=== PATIENT | male | born 1960 | race Caucasian/White ===

== ENCOUNTER 2023-10-03 21:01 | Emergency (ER) | payer OTHER, SELFPAY ==
[2023-10-03 21:05] VITALS: BP 135/70
[2023-10-03 21:06] VITALS: BP 135/70; BMI 18.5
--- NOTE | 2023-10-03 21:31 | ED.GENMED ---
History of Present Illness
<Jackie Forbes PA-C - Last Filed: 10/04/23 01:22>
General
Chief Complaint: Breathing Problem
Source: patient
Exam Limitations: none
Time Seen by Provider: 10/03/23 21:03
Nursing documentation reviewed up to this point in time: agreed with
Travel History
Have you had any contact with someone who has COVID-19?: No
Do you have any symptoms of coronavirus? Fever > 100 degrees, chills, cough, shortness of breath, sore throat, loss of taste or smell, muscle aches, or headache?: Yes
Symptoms:: SOB
History of Present Illness
History of Present Illness:
Patient is a 63 y.o male with hx COPD presenting via EMS for shortness of breath at home. He he has been having cough, shortness of breath for the past few days. No fevers. He has productive cough with white-colored sputum. No hemoptysis. He was
seen by his primary care on Saturday who prescribed him a course of doxycycline and low-dose prednisone. He states he is getting worse. Today he felt exceptionally short of breath and called EMS for evaluation in the emergency department. He was
given bronchodilators and routes in emergency department and is feeling slightly better.
He is a current smoker.
Past History
<Jackie Forbes PA-C - Last Filed: 10/04/23 01:22>
Past History
ED Past Medical History: COPD (emphysema), GERD and Other (alcohol abuse)
ED Past Surgical History: None
Social History
Tobacco: Smoker
Alcohol: Chronic alcoholic
Drug: None
Personal: Single
Living: alone
Family History
Family History: CAD ([place])
Phy Exam
<Jackie Forbes PA-C - Last Filed: 10/04/23 01:22>
Physical Exam
Physical Exam:
General: Well appearing and non-toxic
HEENT: Atraumatic, normocephalic; pupils equal round and reactive to light bilaterally, extraocular muscles intact bilaterally; protecting airway
Neck: appears supple, no JVD
CV: Mildly tachycardic, heart sounds normal, no evidence of cyanosis
Resp: Poor air movement, some expiratory wheezing, in no apparent respiratory distress�pulse ox 96 on my assessment
Abd: Soft, nontender non-distended
Extremities: No deformities no evidence of cyanosis or edema
Neuro: alert, speech normal, no focal motor deficits
Psych: Normal affect
Skin: Intact, no rashes
Scores
<Jackie Forbes PA-C - Last Filed: 10/04/23 01:22>
Heart Failure Risk
Heart Failure Risk Score: Not Applicable
Course
<Jackie Forbes PA-C - Last Filed: 10/04/23 01:22>
Orders/Labs/Results
Orders:
Orders
10/03/23 21:43
Ipratropium/Albuterol Sulfate [Duoneb] 3 ml INH R NOW ONE
CR Chest - 2 Views Urgent
Comment:
Reason For Exam: shortness of breath, cough
10/03/23 21:45
Ipratropium/Albuterol Sulfate [Duoneb] 3 ml INH R NOW ONE
10/03/23 21:53
Electrocardiogram (*1) Stat
Reason for Study: Other
Other Reason for Exam: chest pain
EKG- Treatment ONCE
10/03/23 21:59
Complete Blood Count/With Diff Urgent
Comprehensive Metabolic Panel Urgent
10/03/23 22:49
Prednisone [Deltasone] 40 mg PO NOW STA
10/03/23 23:59
Ipratropium/Albuterol Sulfate [Duoneb] 3 ml INH R NOW ONE
Abnormal Lab Results
10/03/23
21:59
RBC 3.84 L 10^6/uL
(4.70-6.10)
Hgb 12.7 L g/dL
(13.0-18.0)
Hct 35.1 L %
(39.0-52.0)
MCH 33.1 H pg
(27.0-31.0)
Absolute Lymphs (auto) 1.0 L 10^3/uL
(1.2-3.4)
Absolute Monos (auto) 0.9 H 10^3/uL
(0.1-0.6)
Lymphocytes % 13.6 L %
(20.5-51.1)
Monocytes % 12.3 H %
(1.7-9.3)
Sodium 131 L mmol/L
(135-145)
Potassium 3.4 L mmol/L
(3.5-5.1)
Chloride 96 L mmol/L
(98-107)
Glucose 102 H mg/dl
(70-99)
Total Protein 6.1 L g/dl
(6.3-8.2)
10/03/23 21:59
10/03/23 21:59
Vital Signs
Initial and Last Documented VS:
Initial Vital Signs
Pulse Resp BP
111 25 135/70
10/03/23 21:05 10/03/23 21:05 10/03/23 21:05
Last Documented Vital Signs
Temp Pulse Resp BP Pulse Ox
98.5 F 114 25 123/62 95
10/03/23 21:06 10/04/23 00:12 10/04/23 00:12 10/04/23 00:12 10/04/23 00:40
<Husam Stephens, DO - Last Filed: 10/03/23 22:32>
Orders/Labs/Results
Orders:
Orders
10/03/23 21:43
Ipratropium/Albuterol Sulfate [Duoneb] 3 ml INH R NOW ONE
CR Chest - 2 Views Urgent
Comment:
Reason For Exam: shortness of breath, cough
10/03/23 21:45
Ipratropium/Albuterol Sulfate [Duoneb] 3 ml INH R NOW ONE
10/03/23 21:53
Electrocardiogram (*1) Stat
Reason for Study: Other
Other Reason for Exam: chest pain
EKG- Treatment ONCE
10/03/23 21:59
Complete Blood Count/With Diff Urgent
Comprehensive Metabolic Panel Urgent
10/03/23 22:49
Prednisone [Deltasone] 40 mg PO NOW STA
10/03/23 23:59
Ipratropium/Albuterol Sulfate [Duoneb] 3 ml INH R NOW ONE
Abnormal Lab Results
10/03/23
21:59
RBC 3.84 L 10^6/uL
(4.70-6.10)
Hgb 12.7 L g/dL
(13.0-18.0)
Hct 35.1 L %
(39.0-52.0)
MCH 33.1 H pg
(27.0-31.0)
Absolute Lymphs (auto) 1.0 L 10^3/uL
(1.2-3.4)
Absolute Monos (auto) 0.9 H 10^3/uL
(0.1-0.6)
Lymphocytes % 13.6 L %
(20.5-51.1)
Monocytes % 12.3 H %
(1.7-9.3)
Sodium 131 L mmol/L
(135-145)
Potassium 3.4 L mmol/L
(3.5-5.1)
Chloride 96 L mmol/L
(98-107)
Glucose 102 H mg/dl
(70-99)
Total Protein 6.1 L g/dl
(6.3-8.2)
10/03/23 21:59
10/03/23 21:59
Vital Signs
Initial and Last Documented VS:
Initial Vital Signs
Pulse Resp BP
111 25 135/70
10/03/23 21:05 10/03/23 21:05 10/03/23 21:05
Last Documented Vital Signs
Temp Pulse Resp BP Pulse Ox
98.5 F 114 25 123/62 95
10/03/23 21:06 10/04/23 00:12 10/04/23 00:12 10/04/23 00:12 10/04/23 00:40
<Jackie Forbes PA-C - Last Filed: 10/04/23 01:22>
MDM/Problems Addressed
MDM/Problems Addressed:
Patient is 63-year-old male with history of COPD presenting for evaluation of shortness of breath. Worsening over the past few days. He has cough but no hemoptysis or sputum production. He is afebrile. Received bronchodilators and route to ""hospital. He is in no apparent respiratory distress on initial exam. O2 saturation 98 on room air. He is mildly tachycardic likely due to bronchodilators. Lung exam with poor air movement some expiratory wheezing. Will get basic labs, EKG,
chest x-ray. Will give 2 DuoNeb's [id number]. Will reassess
CBC without any clinically significant abnormalities. CMP very mild hyponatremia of 131. Otherwise no clinically significant rise. Will give IV fluids. Chest x-ray shows no signs of pneumonia. EKG shows sinus tachycardia with no signs of
ischemia.
Patient with some improvement after multiple DuoNebs. He has remained stable in the emergency department with O2 saturations in upper 90s on room air. Suspect symptoms likely due to COPD exacerbation. No indication for admission at this point.
He is stable for discharge with return precautions and primary care follow-up. Will send him home with nebulizer machine. Will send prescription for prednisone taper course and albuterol nebulizer solution to pharmacy to use as needed. Will give
first dose of steroid in the emergency department today. He should continue doxycycline as prescribed by primary care. Patient is comfortable with this plan and will follow with primary care with regular scheduled appointment this Saturday.
Acute Exacerbation and/or Progression of Chronic Illness:
COPD exacerbation
<Husam Stephens DO - Last Filed: 10/03/23 22:32>
MDM/Problems Addressed
Differential Diagnosis Includes:
COPD exacerbation, pneumothorax, electrolyte disturbance, pneumonia
MDM/Problems Addressed:
COPD exacerbation
Chronic conditions affecting care:
COPD, chronic tobacco abuse
<Jackie Forbes PA-C - Last Filed: 10/04/23 01:22>
*Radiology
Radiology exam reviewed: preliminary read by ED provider and radiology read reviewed
*EKG
Interpreted by ED Provider?: Yes
EKG Intrepretation Date: 10/04/23
Interpretation: abnormal
Comparison EKG: no changes
Heart Rate: 107
Rate: tachycardiac
Rhythm: sinus
[place]: normal axis
Interval: normal interval
QRS Pattern: normal QRS
Ischemia: no ischemia
*Sports Doctor Interpretation
Rate: normal
Interpretation: normal
Heart Rate: 82
Rhythm: sinus
*Critical Care Note
Total Time (30-74mins, 75-104mins- exclusive of procedures): Not Applicable
<Husam Stephens DO - Last Filed: 10/03/23 22:32>
*Pulse Oximetry
Patient hypoxic: yes
<Husam Stephens DO - Last Filed: 10/03/23 22:32>
Update Note
Update Note:
Patient was counseled on the importance of smoking cessation.
ED Attending Note
<Jackie Forbes PA-C - Last Filed: 10/04/23 01:22>
-
Portions of this chart may have been created with voice recognition software.� Occasional wrong word or��sound alike� substitutions may have occurred due to the inherent limitations of voice recognition software.
<Husam Stephens DO - Last Filed: 10/03/23 22:32>
ED Attending Note
Patient seen and examined by attending physician: Yes
I performed the substantive portion of visit, reviewed & personally made and approve the management plan that is documented in note by myself or GREG.: Yes
ED Attending Note:
63-year-old male who presents feeling short of breath. Recent saw his primary care doctor was put on steroids and doxycycline. Patient reports that he felt short of breath. Was given bronchodilators by EMS. Patient states he does feel little bit
better. No fevers. No hemoptysis. No sputum production. Exam: Poor air movement but does have some wheezing. Pulse ox 93% on my evaluation. No respiratory distress. Assessment plan: Check chest x-ray, lab, DuoNebs and reassess
Discharge Plan
Departure
Patient Disposition: Home (Routine Discharge)
Date of Disposition: 10/04/23
Time of Disposition: 00:14
Patient with high blood pressure during this ER visit?: Yes
Condition: Good
Covid-19: Not Applicable
Discharge Problem:
COPD exacerbation
Instructions: Shortness of Breath (Dyspnea) (DC), Exacerbation of COPD (DC), BLOOD PRESSURE
Prescriptions:
New
prednisone 10 mg Tablet
See Rx Instructions .ROUTE .COMPLEX Qty: 30 0RF
Rx Instructions:
Take By Mouth:
40 mg daily x3 days, 30 mg daily x3 days,
20 mg daily x3 days, 10 mg daily x3 days.
albuterol sulfate 2.5 mg /3 mL (0.083 %) solution for nebulization
2.5 mg inhalation Q4H PRN (Reason: shortness of breath or wheezing) Qty: 90 0RF
No Action
Spiriva Respimat 1.25 mcg/actuation Mist
2 puff INHALATION DAILY
naproxen 500 mg Tablet
500 mg PO PRN PRN (Reason: as needed)
prednisone 10 mg Tablet
10 mg PO DIRECTED
Rx Instructions:
3 tabs PO DAILY FOR 3 DAYS, THEN 2 tabs PO daily for 3 days, then 1 tab PO daily for 3 days.
doxycycline hyclate 100 mg Capsule
100 mg PO BID
Patient Comments:
Take 1 capsule by mouth BID for 10 days
sertraline 100 mg Tablet
100 mg PO DAILY
pantoprazole 40 mg Tablet,Delayed Release (Dr/Ec)
40 mg PO BID
albuterol 90 mcg/actuation Aerosol
INHALATION
Referrals:
Elizabeth Deras CRNP [Family Provider] - Follow up in 5-7 days
Activity Restrictions/Additional Instructions:
-Return to the emergency department with any severe shortness of breath, chest pain, high fevers, coughing up blood, severe headache, changes in mental status, worsening in current symptoms, or any other concerns
-We have sent you home with a nebulizer machine. A prescription for the albuterol nebulizer solution has been sent to your pharmacy. Please use every 4 hours as needed for shortness of breath, wheezing
-A prescription for prednisone has been sent to your pharmacy. Please start taking tomorrow. You can discontinue the prescription for prednisone given to you by your primary care provider
-Continue to take doxycycline as prescribed by you primary care
-Follow-up with primary care for further evaluation/treatment.
Interventions
Interventions:
*Risk Screen - Suicide Last Done: 10/03/23 21:06
*General Assessment Last Done: 10/03/23 21:06
*Neglect/Abuse Screening Last Done: 10/03/23 21:06
ED- Fall Risk Assessment Last Done: 10/04/23 00:40
*ED COVID-19 Vaccine History Last Done: 10/04/23 00:34
*Nursing Disposition Last Done: 10/04/23 00:40
ED- Cardiac Assessment Last Done: 10/03/23 23:13
ED- Pulmonary Assessment Last Done: 10/03/23 23:13
Discharge Date and Time
Discharge Date/Time: 10/04/23 00:46
[2023-10-03 22:00] VITALS: BP 123/58
[2023-10-03 22:10] LABS: % Basophils 0.6 % (0-2); % Eosinophils 1.3 % (0-6); % Immature Granulocytes 0.4 % (0-0.5); % Lymphocytes 13.6 % (20.5-51.1); % Monocytes 12.3 % (1.7-9.3); % Neutrophils 71.8 % (42.2-75.2); Absolute Eosinophils 0.1 10^3/uL (0-0.7); Absolute Monocytes 0.9 10^3/uL (0.1-0.6); Hematocrit 35.1 % (39.0-52.0); Hemoglobin 12.7 g/dL (13.0-18.0); Mean Corp Hgb Conc. 36.2 g/dL (33.0-37.0); Mean Corpuscular Hgb 33.1 pg (27.0-31.0); Mean Corpuscular Volume 91.4 fL (80.0-94.0); Nucleated Red Blood Cells % 0 % (-); Platelet Count 224 10^3/uL (130-400); Red Blood Cell Count 3.84 10^6/uL (4.70-6.10); Red Cell Dist. Width 12.5 % (11.5-14.5)
[2023-10-03 22:19] LABS: ALT (SGPT) 20 U/L (0-50); AST (SGOT) 26 U/L (17-59); Albumin 3.8 g/dl (3.5-5.0); Alkaline Phosphatase 62 U/L (38-126); Blood Urea Nitrogen 9 mg/dl (9-20); Calcium 8.7 mg/dl (8.4-10.2); Carbon Dioxide 26 mmol/L (22-30); Chloride 96 mmol/L (98-107); Estimated Creatinine Clearance 94 ml/min; Glucose 102 mg/dl (70-99); Potassium 3.4 mmol/L (3.5-5.1); Sodium 131 mmol/L (135-145); Total Bilirubin 0.6 mg/dl (0.2-1.3); Total Protein 6.1 g/dl (6.3-8.2); eGFR > 60.00
[2023-10-03] MEDS: DUONEB 3 ML INH ×2 (22:33→22:45)
[2023-10-03] MEDS: DELTASONE 40 MG PO (23:10)
[2023-10-04 00:12] VITALS: BP 123/62
[2023-10-04] MEDS: DUONEB 3 ML INH (00:35)
== END 2023-10-04 00:46 | disposition home or self-care (01) ==
LOC: EMR 21:01
PROVIDERS: Physician Assistant; EMERGENCY PHYSICIAN Emergency Medicine; FAMILY PHYSICIAN Nurse Practitioner
DX: J44.1 Chronic obstructive pulmonary disease with (acute) exacerbation (principal); F17.200 Nicotine dependence, unspecified, uncomplicated; R03.0 Elevated blood-pressure reading, without diagnosis of hypertension
CPT/HCPCS: 99285; 94640; 71046; 80053; 85025; 93005

== ENCOUNTER 2023-10-07 15:00 | Inpatient (IN) | payer OTHER, SELFPAY ==
[2023-10-07] VITALS (45 sets, daily range): BP systolic 46–192; BP diastolic 38–104
[2023-10-07 13:14] LABS: % Basophils 0.1 % (0-2); % Immature Granulocytes 0.3 % (0-0.5); % Lymphocytes 15.6 % (20.5-51.1); % Monocytes 6.8 % (1.7-9.3); % Neutrophils 77.2 % (42.2-75.2); Absolute Lymphocytes 1.1 10^3/uL (1.2-3.4); Absolute Monocytes 0.5 10^3/uL (0.1-0.6); Absolute Neutrophils 5.5 10^3/uL (1.4-6.5); Hematocrit 38.9 % (39.0-52.0); Hemoglobin 13.9 g/dL (13.0-18.0); Mean Corp Hgb Conc. 35.7 g/dL (33.0-37.0); Mean Corpuscular Volume 89.4 fL (80.0-94.0); Mean Platelet Volume 8.8 fL (7.4-10.4); Nucleated Red Blood Cells % 0 % (-); Platelet Count 288 10^3/uL (130-400); Red Blood Cell Count 4.35 10^6/uL (4.70-6.10); Red Cell Dist. Width 11.8 % (11.5-14.5); White Blood Cell Count 7.1 10^3/uL (4.8-10.8)
--- NOTE | 2023-10-07 13:14 | ED.GENMED ---
History of Present Illness
General
Chief Complaint: Breathing Problem
Source: ambulance crew
Time Seen by Provider: 10/07/23 13:07
Travel History
Have you had any contact with someone who has COVID-19?: No
Do you have any symptoms of coronavirus? Fever > 100 degrees, chills, cough, shortness of breath, sore throat, loss of taste or smell, muscle aches, or headache?: No
History of Present Illness
History of Present Illness:
63-year-old male brought to the emergency room by ambulance in respiratory distress. They evidently received a phone call for a patient having shortness of breath. They arrived to find the patient in significant respiratory distress with
expiratory wheezing. En route his mentation changed to where he became essentially unresponsive. He continued to have significant increased work of breathing. 2 DuoNebs were provided en route. Patient unable to provide any history.
Past History
Past History
ED Past Medical History: COPD (emphysema), GERD and Other (alcohol abuse)
ED Past Surgical History: None
Social History
Tobacco: Smoker
Alcohol: Chronic alcoholic
Drug: None
Personal: Single
Living: alone
Family History
Family History: CAD ([place])
Phy Exam
Physical Exam
Physical Exam:
General: Eyes open, does not respond to commands, in extremis
Vitals: Tachypneic, hypertensive
Head: Atraumatic
Eyes: Pupils equal, EOMI
Throat: Airway intact, no exudates
Neck: Trachea midline
Lungs: Markedly decreased breath sounds bilaterally with expiratory wheezing
Heart: Regular rate, no murmurs
Abd: Soft, Nontender, No pulsatile mass
Neuro: Grossly nonfocal
Skin: Warm, dry, no rash
Extremities: pulses equal b/l, no edema
Scores
Heart Failure Risk
Heart Failure Risk Score: Not Applicable
Course
Orders/Labs/Results
Orders:
Orders
10/07/23 12:57
Etomidate [Amidate] 40 mg .ROUTE .STK-MED ONE
Succinylcholine Chloride [Anectine] 200 mg .ROUTE .STK-MED ONE
10/07/23 12:58
Electrocardiogram (*1) Urgent
Reason for Study: Other
Other Reason for Exam: Respiratory Distress
Cardiac Monitoring- Treatment ONCE
EKG- Treatment ONCE
IV Insert/Care/Rem.- Treatment PRN
O2 Therapy [RESP] Urgent
Titrate/Wean O2 to maintain O2 sat greater than (%): 93
Special Instructions: TO MAINTAIN CONTINUOUS O2 SATS >/= 93%
Pulse Ox/cont/shift [RESP] Urgent
Quantity: 1
Special Instructions: continuous pulse ox
10/07/23 12:59
CR Chest Portable - 1 View Urgent
Comment:
Reason For Exam: respiratory distress
Reason Study Needs to be Portable: Patient Unstable
10/07/23 13:03
Complete Blood Count/With Diff Urgent
Comprehensive Metabolic Panel Urgent
NT-proBNP Urgent
Troponin I Urgent
10/07/23 13:04
Lactic Acid Urgent
Blood Culture Urgent
DONOVAN Source: Blood/Venous
Specimen Description:
FentaNYL 1,000 MCG/100 ML [Sublimaze] 1,000 mcg in 100 ml .ROUTE .STK-MED
Fentanyl Citrate/Pf [Sublimaze] 100 mcg .ROUTE .STK-MED ONE
Propofol [Diprivan] 20 ml .ROUTE .STK-MED
10/07/23 13:06
Albuterol Nebs [Ventolin Nebules] 2.5 mg .ROUTE .STK-MED ONE
10/07/23 13:12
FentaNYL 1,000 MCG/100 ML [Sublimaze] 1,000 mcg in 100 ml IV NOW
Indication:: Light Sedation
Begin Infusion:: Now
Goal:: pain score </= 1, CPOT 0-2
Maximum dose in mcg/hr:: 300
Continue currently infusing dose and titrate:: Yes
Titration Instructions:: Titrate every 30 minutes if patient exhibits signs of pain or discomfort
Titration Instructions:: (pain score >/= 2, CPOT >/= 3).
Titration Instructions:: Administer bolus dose and increase infusion by 25 mcg/hr.
Taper Instructions:: If pain score at goal for 4 consecutive hours (pain score </= 1, CPOT 0-2)
Taper Instructions:: decrease infusion by 50 mcg/hr every 2 hours.
Taper Instructions:: When dose </= 50 mcg/hr may turn infusion off and consider PRN
Taper Instructions:: intermittent bolus doses only.
Over-sedation Instructions:: If CPOT 0-2 (goal) and RASS -3 to -5 (below goal) decrease sedative by 50%
Over-sedation Instructions:: first. If pain score remains at goal and RASS remains below goal in 1 hour,
Over-sedation Instructions:: decrease opioid infusion by 50%.
Notify provider:: immediately if pt exhibits: chest wall rigidity, hemodynamic instability,
Notify provider:: agitation/pain despite maximum dosing, pain when RASS below goal.
Additional Instructions:: Patient MUST be mechanically ventilated.
Fentanyl Citrate/Pf [Sublimaze] 50 mcg IV [id number] PRN
Fentanyl Citrate/Pf [Sublimaze] 70 mcg IV NOW STA
10/07/23 13:16
0.9% Sodium Chloride 1000 ml [Nss] 1,000 ml IV BOLUS
10/07/23 13:22
ASA Classification Routine
Triglycerides Routine
Comment: baseline levels with propofol infusion
Propofol 1,000,000 Mcg/100 ml [Diprivan] 1,000,000 mcg in 100 ml IV NOW
Indication:: Light Sedation
Begin Infusion:: Now
Goal:: RASS 0 to -2
Maximum dose in mcg/kg/min:: 50
Initial dose based on RASS:: Yes
If RASS is:: +1 or pt hemodynamically unstable (SBP < 90mmHg), initiate at 10 mcg/kg/min
If RASS is:: +2, initiate at 20 mcg/kg/min
If RASS is:: greater than or equal to +3, initiate at 30 mcg/kg/min
Titration Instructions:: Titrate by 5-10 mcg/kg/min every 5 minutes until RASS 0 to -2 achieved.
Taper Instructions:: If RASS is at or below goal for 4 consecutive hours decrease infusion by
Taper Instructions:: 5-10 mcg/kg/min every 2 hours to off.
Over-sedation Instructions:: If CPOT 0-2 (at goal) AND RASS -3 to -5 (below goal) decrease sedative by
Over-sedation Instructions:: 50% first. If pain score remains at goal and RASS remains below goal in
Over-sedation Instructions:: 1 hour, decrease opioid infusion by 50%.
Notify provider:: immediately if patient exhibits signs/symptoms of propofol-related
Notify provider:: infusion syndrome.
Additional Instructions:: Patient MUST be mechanically ventilated.
Propofol [Diprivan] 60 mg IV NOW STA
10/07/23 14:36
ABG [Arterial Blood Gas] Urgent
%Oxygen/Room Air: 50
10/07/23 14:41
Admit/Transfer Patient As Directed
Co-Sign Provider:
Level of Care: Inpatient admission
Assign to:: ICU
Physician / Group: Aashish Meekists
Diagnosis: acute COPD exacerbation, VDRF
Reason for Hospitalization: acute COPD exacerbation, VDRF
Expected length of stay greater than two midnights?: Yes
ELOS- Estimated Length of Stay in days: 4
I certify the patient meets the requirements for IP care: Yes
10/07/23 14:52
Code Status As Directed
Resuscitation Status: Full Code
Abnormal Lab Results
10/07/23 10/07/23
13:03 14:36
RBC 4.35 L 10^6/uL
(4.70-6.10)
Hct 38.9 L %
(39.0-52.0)
MCH 32.0 H pg
(27.0-31.0)
Absolute Lymphs (auto) 1.1 L 10^3/uL
(1.2-3.4)
Neutrophils % 77.2 H %
(42.2-75.2)
Lymphocytes % 15.6 L %
(20.5-51.1)
pH 7.33 L
(7.35-7.45)
pCO2 55 H mmHg
(35-48)
pO2 233 H mmHg
(83-108)
HCO3 29.0 H mmol/L
(21-28)
ABG O2 Sat (Measured) 99.1 H %
(94-98)
Sodium 128 L mmol/L
(135-145)
Chloride 84 L mmol/L
(98-107)
Carbon Dioxide 35 H mmol/L
(22-30)
Creatinine 0.5 L mg/dL
(0.7-1.3)
Glucose 152 H mg/dl
(70-99)
AST 67 H U/L
(17-59)
10/07/23 13:03
10/07/23 13:03
Vital Signs
Initial and Last Documented VS:
Initial Vital Signs
Pulse Resp Pulse Ox
77 36 95
10/07/23 12:59 10/07/23 12:59 10/07/23 12:59
Last Documented Vital Signs
Temp Pulse Resp BP Pulse Ox
96.8 F L 90 20 98/62 96
10/07/23 13:30 10/07/23 15:15 10/07/23 15:15 10/07/23 14:00 10/07/23 15:15
Procedures
Intubations
Procedure completed by: myself
Method of Intubation: glidescope
Tube size (cm): 8.0
Placement confirmed by: auscutation, CXR, capnography and direct visualization
Breath sounds after intubation: equal
Intubation complications: no complications
MDM/Problems Addressed
Differential Diagnosis Includes:
COPD exacerbation pneumonia, pneumothorax, PE
MDM/Problems Addressed:
Patient presented extremis. He was unresponsive to verbal or painful stimuli but he did not maintain spontaneous respiratory effort. Suspect he had significant hypercarbia. Decision made to go directly to intubation. RSI was performed. We were
able to ventilate the patient. Inline nebs were provided after intubation. Patient required sedation with fentanyl and propofol. He will be admitted to the intensive care unit. Case discussed with the hospitalist (Dr. Rudolph) as well as the
circulation tender (Dr. Main)
Acute Exacerbation and/or Progression of Chronic Illness: COPD
*Pulse Oximetry
Patient hypoxic: yes
*EKG
Interpreted by ED Provider?: Yes
Interpretation: normal
Heart Rate: 63
Rate: normal
Rhythm: sinus
Interval: normal interval
QRS Pattern: normal QRS
Ischemia: no ischemia
*Toll Ticket Clerk Interpretation
Rate: normal
Rhythm: sinus
*Critical Care Note
Total Time (30-74mins, 75-104mins- exclusive of procedures): 35 min
comment:
Critical care statement: A total of 35 minutes of critical care time was provided for this patient. This includes management of unstable vital signs, evaluation of the patient at bedside, reviewing the patient's pertinent medical records, discussion
with consultants, review of old EKGs and review of pertinent medical records. This time with separate from time utilized to perform the aforementioned documented procedures
ED Attending Note
-
Portions of this chart may have been created with voice recognition software.� Occasional wrong word or��sound alike� substitutions may have occurred due to the inherent limitations of voice recognition software.
Discharge Plan
Departure
Patient Disposition: Admit
Date of Disposition: 10/07/23
Time of Disposition: 13:50
Admit to: ICU
Presentation/result/management discussed w/ accepting MD/DO: Hospitalist
Condition: Serious
Discharge Problem:
Respiratory failure with hypoxia and hypercapnia, COPD exacerbation
Interventions
Interventions:
*Risk Screen - Suicide Last Done: 10/07/23 13:29
*Neglect/Abuse Screening Last Done: 10/07/23 13:29
ED- Cardiac Assessment Last Done: 10/07/23 14:48
ED- Pulmonary Assessment Last Done: 10/07/23 14:48
[2023-10-07] MEDS: SUBLIMAZE 100 IV (13:16)
[2023-10-07] MEDS: SUBLIMAZE 70 MCG IV (13:16)
[2023-10-07] MEDS: DIPRIVAN 60 MG IV (13:24)
[2023-10-07] MEDS: DIPRIVAN 100 IV ×2 (13:25→22:57)
--- NOTE | 2023-10-07 13:25 | EDRN ---
Pt arrived severely dypsneic and disoriented. Dr. Shepherd at bedside arrival and intubated with rt present.
[2023-10-07] MEDS: NSS 1000 IV ×4 (13:26→19:50)
[2023-10-07 13:32] LABS: Lactic Acid 1.2 mmol/L (0.7-2.0)
--- NOTE | 2023-10-07 13:36 | EDRN ---
Pt started on Fentanyl 60mcg and Propofol 20mcg per Dr. Shepherd verbal order.
[2023-10-07] MEDS: SUBLIMAZE 50 MCG IV ×5 (13:43→22:57)
[2023-10-07 13:45] LABS: ALT (SGPT) 31 U/L (0-50); AST (SGOT) 67 U/L (17-59); Alkaline Phosphatase 71 U/L (38-126); Blood Urea Nitrogen 15 mg/dl (9-20); Calcium 8.8 mg/dl (8.4-10.2); Carbon Dioxide 35 mmol/L (22-30); Chloride 84 mmol/L (98-107); Glucose 152 mg/dl (70-99); Potassium 4.7 mmol/L (3.5-5.1); Sodium 128 mmol/L (135-145); Total Bilirubin 0.7 mg/dl (0.2-1.3); Total Protein 6.7 g/dl (6.3-8.2); eGFR > 60.00
[2023-10-07 13:50] LABS: NT-proBNP 307 pg/ml; Troponin I < 0.012 ng/ml
--- NOTE | 2023-10-07 13:57 | CON.INTV ---
Consultation
Consultation Request
Date/Time Consultation Requested: 10-07-23
Date/Time Consultation Performed: 10-07-23
Requesting Provider: Hospitalist
Performing Provider: Dr Rios
Reason for Consultation: dyspnea
Medical History
-
Chief Complaint: dyspnea
History of Present Illness:
Mr Niall Campos is a 63/M adm 10-07 with worsening dyspnea, patient called EMS, found in significant resp distress and expiratory wheezing.
In route to [facility], became unresponsive, received 2 DN treatments.
At ER, unresponsive, tachypneic/wheezing, hypertensive, intubated with no issue at ER (PINKY#8).
Per emr, seen at ER as well on 10-03 for few d h/o dyspnea and cough (previously seen by PCP and prescribed doxycycline and low dose prednisone without improvement, brought by EMS, responded to multiple DNs, d/c home with prednisone taper and alb
nebs (prescribed nebulizer as well)
Seen at ER, on MV, sedated, intermittent cough, bronchospastic on exam
COPD, per emr on tiotropium, no other details available
Smoker
ETOH use
Past Medical History
Past Medical History: Other (see A&P for PMH/PSH)
Social History
Tobacco: Smoker
Alcohol: Daily
Personal: Single
Living: Alone
Family History
Family History: CAD
Allergies / Home Medications
Allergies
Allergy/AdvReac Type Severity Reaction Status Date / Time
No Known Allergies Allergy Verified 06/25/23 22:03
Home Medications
Medication Instructions Recorded Confirmed Last Taken Type
naproxen 500 mg tablet 500 mg PO PRN PRN as needed 02/02/23 05/18/23 Unknown History
tiotropium bromide 1.25 2 puff inhalation DAILY 02/02/23 10/03/23 Unknown History
mcg/actuation mist for inhalation
(Spiriva Respimat)
albuterol 90 mcg/actuation aerosol mcg inhalation 10/03/23 Unknown History
inhaler
doxycycline hyclate 100 mg capsule 100 mg PO BID 10/03/23 10/03/23 Unknown History
pantoprazole 40 mg tablet,delayed 40 mg PO BID 10/03/23 10/03/23 Unknown History
release
prednisone 10 mg tablet 10 mg PO DIRECTED 10/03/23 10/03/23 10/02/23 History
sertraline 100 mg tablet 100 mg PO DAILY 10/03/23 10/03/23 Unknown History
albuterol sulfate 2.5 mg/3 mL 2.5 mg (3 mL) inhalation Q4H PRN 10/04/23 Unknown Rx
(0.083 %) solution for nebulization shortness of breath or wheezing
#90 mL
prednisone 10 mg tablet See Rx Instructions .Route 10/04/23 Unknown Rx
.COMPLEX #30 tabs
Review of Systems
-
Unable to Obtain full review of systems at this time due to: Patient Intubation
Vitals / Labs / Diagnostic Testing
Vital Signs
Temp Pulse Resp BP Pulse Ox
96.8 F L 89 18 115/63 99
10/07/23 13:30 10/07/23 13:45 10/07/23 13:34 10/07/23 13:45 10/07/23 13:34
Lab Data
10/07/23 13:03
10/07/23 13:03
Diagnostic Testing:
Physical Exam
-
HEENT: Normocephalic and Moist Mucous Membranes
Cardiovascular: Regular Rhythm, Murmur (n), Peripheral Edema (n) and JVD (n)
Respiratory: Wheeze, Rhonchi and Other (prolonged expiratory time)
GI: Soft and Non Distended
Neurology: Other (sedated)
Skin: Dry
General: Respiratory Distress (mild)
Assessment
-
Assessment:
Mr Niall Campos is a 63/M adm 10-07 with worsening dyspnea, patient called EMS, found in significant resp distress and expiratory wheezing. In route to , became unresponsive, received 2 DN treatments. At ER, unresponsive, tachypneic/wheezing,
hypertensive, intubated with no issue at ER (PINKY#8). Per emr, seen at ER as well on 10-03 for few d h/o dyspnea and cough (previously seen by PCP and prescribed doxycycline and low dose prednisone without improvement, brought by EMS, responded to
multiple DNs, d/c home with prednisone taper and alb nebs (prescribed nebulizer as well)
Impression:
Acute respiratory failure
Uncompensated resp acidosis
AECOPD
Hyponatremia at least since 10-03 ER visit
Troponin negative, normal BNP
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
COPD, per emr on tiotropium, no other details available
Depression
Reported h/o HTN in previous ER encounters
Smoker
ETOH use
Plan:
Returned to ER after 10-03 evaluation, at that time stable for d/c on prednisone taper and BDs (previously on doxycycline and prednisone by PCP at that time)
Intubated at ER due to resp distress, unresponsiveness
Reportedly intubated with no issue
No available history of previous intubations
Currently on ACV: 20-500-5-0.6 (POx 97%)
Sedation/analgesia: propofol/fentanyl
Daily sedation holiday to assess MS and SBT
Currently bronchospastic
Continue systemic CS: dexamethasone pending IV order
DNs qid and prn
Trach secs cx
Follow blood cxs
OK with empiric IV doxycycline for now, will adjust depending on findings
Check COVID/flu
Follow up CXR in AM
IVFs: NS
Follow Na levels
UA, UDS
Monitor for DTs
Reportedly h/o chronic ETOH use
GI/DVT prophylaxis
D/w Dr Shepherd at ER
Critical care time: 35 min
Diagnostic tests:
CXR 10-07-23 c/w and May 2023. Emphysematous lung momin, no pulm infiltrates. No change in mild blunting of costodiaphragmatic angles
--- NOTE | 2023-10-07 14:44 | HPS.HSE ---
Family Physician
-
Family Physician: INTERVIEWE UNKNOWN - PT NOT
Chief Complaint
-
respiratory distress
History of Present Illness
63 y/o M hx of GERD, ETOH abuse, COPD presents to ER for respiratory distress. EMS arrived after receiving a 911 call and found patient in significant distress, wheezing. In route to hospital patient was briefly unresponsive and work of breathing
worsened. He received 2 DuoNeb treatments prior to hospitalization. In ER, he was rapidly intubated given respiratory distress. Of note, patient was seen ER 10/03 for a few day history of cough, SOB. He was prescribed doxy and steroids earlier that
day by PCP. He was given nebulizers in the ER with improvement and cleared for DC.
Medical History
Past Medical History
Past Medical History: Reports Other (GERD, ETOH abuse, COPD)
Past Surgical History: Reports None
Social History
Tobacco: Smoker
Alcohol: Chronic Alcoholic
Drug: None
Personal: Single
Living: Alone
Family History
Family History: Not pertinent
Allergies / Home Medications
Allergies reflects when Allergies were last updated in [employer].
Home Medications with original date entered in [employer]
Allergy/Medication List:
Allergies
Allergy/AdvReac Type Severity Reaction Status Date / Time
No Known Allergies Allergy Verified 06/25/23 22:03
Home Medications
tiotropium bromide 1.25 mcg/actuation mist for inhalation (Spiriva Respimat) 2 puff inhalation DAILY 02/02/23
doxycycline hyclate 100 mg capsule 100 mg PO BID 10/03/23
pantoprazole 40 mg tablet,delayed release 40 mg PO BID 10/03/23
sertraline 100 mg tablet 100 mg PO DAILY 10/03/23
prednisone 10 mg tablet See Rx Instructions .Route .COMPLEX #30 tabs 10/04/23
Review of Systems
-
Unable to obtain full review of systems at this time due to: Patient Intubation
Physical Exam
Vital Signs
Vital Signs
Temp Pulse Resp BP Pulse Ox
96.8 F L 89 18 115/63 99
10/07/23 13:30 10/07/23 13:45 10/07/23 13:34 10/07/23 13:45 10/07/23 13:34
Physical Exam
General: Well Developed, Well Nourished and Intubated
HEENT: NormoCephalic and Anicteric
Respiratory: Wheezes and Decreased Breath Sounds
Cardiac: S1/S2 and Regular Rhythm
GI: Non Tender and Non Distended
Neuro: Sedated
Hematologic/Lymphatic: No Lymphadenopathy
Psych: Calm
Laboratory Results
-
10/07/23 13:03
10/07/23 13:03
Laboratory Results
Lactic Acid 1.2 mmol/L (0.7-2.0) 10/07/23 13:04
Total Bilirubin 0.7 mg/dl (0.2-1.3) 10/07/23 13:03
AST 67 U/L (17-59) H 10/07/23 13:03
ALT 31 U/L (0-50) 10/07/23 13:03
Alkaline Phosphatase 71 U/L (38-126) 10/07/23 13:03
Troponin I < 0.012 ng/ml 10/07/23 13:03
Data Reviewed
-
Diagnostic Radiology: Report Reviewed by me
Lab Data: Labs Reviewed by me
Impression/Plan
-
Assessment:
Vent-dependant acute hypoxic respiratory failure
acute COPD exacerbation
- ICU admit and consult
- Decadron 4mg q8 IV
- continue Doxycycline as IV
- standing + prn nebs
- await blood gas
Acute hyponatremia
- check workup
hx of GERD
- continue PPI BID as IV
Depression on Sertraline
Chronic smoker
- add Nicotine patch
Chronic alcohol abuse
- monitor for signs of w/d
DVT ppx: Lovenox
Code: Full
Total Critical Care Time 45 minutes. I was immediately available to the patient and staff. I personally examined, reviewed labs, diagnostic images/reports, interpretations, treatment plans, discussed patient care with other providers and family
or caregivers (if patient is unable to make decisions), entered orders as appropriate and documented the medical record.
[2023-10-07 14:47] LABS: B.E. 2.1 mmol/L; O2 Saturation % 99.1 % (94-98); PCO2 55 mmHg (35-48); PO2 233 mmHg (83-108); pH 7.33 (7.35-7.45)
--- NOTE | 2023-10-07 15:30 | PTCARENOTE ---
pt arrived to the ICU with RN, telemetry, ventilated, with bilateral soft wrist restraints. Once we slid him onto the bed he was awake and resisting care. He was sitting up in the bed and the ED RN reported to me that she turned the sedation off due
to low SBP 60's on transfer. She turned the propofol back on @ 40mcg/kg/min. Fentanyl infusing 75mcg/hr via right hand #18g protective catheter. Left AC#20g protective catheter with propofol. Right FA#20g protective catheter flushed, no blood
return. Lungs diminished throughout with scattered late expiratory wheeze. Abdomen firm. Winced when palpated lower quadrants. Bladder scanned for 10mls due to no void since IVF in ED. Condom catheter remains intact. Complete bath given. He has
scattered small scabs on both knee caps. Elbows blanchable red. Adhesive foam dressings applied. Rectal temperature probe inserted into his rectum and secured w/tape. T. 99.5. Dr. Rios was notified via TT of his low BP @1602, with no urinary
output from the first liter in the ED. Will turn off propofol, since I had already halved the dose (20mcg/kg/min), and administer liter nss as ordered. Aspiration precautions maintained.
[2023-10-07 16:51] LABS: Osmolality Serum 278 mOsm/kg (275-300)
[2023-10-07] MEDS: DUONEB 3 ML INH ×2 (16:54→19:37)
--- NOTE | 2023-10-07 17:00 | PTCARENOTE ---
During SBT pt HR elevated in the 90's with frequent unifocal PVC's, ETCo2 50's, use of accessory muscles with low tidal volumes.
[2023-10-07 17:08] LABS: Triglycerides 117 mg/dl (10-149)
[2023-10-07] MEDS: DECADRON 4 MG IV ×2 (17:29→23:01)
[2023-10-07] MEDS: LOVENOX 40 MG SC (17:29)
--- NOTE | 2023-10-07 17:48 | PTCARENOTE ---
Dr. Rios notified of BP 72/51 after aborting SBT and initiating sedation and providing Fentanyl bolus. Recent bladder scan for only 161 ml's after 2 liters NSS bolus. Will administer another liter bolus NSS as ordered.
[2023-10-07] MEDS: VIBRAMYCIN 260 MG IV (18:05)
[2023-10-07] MEDS: PROTONIX IV 40 MG IV (19:50)
[2023-10-07] MEDS: NSS (PRESERVATIVE FREE) 10 ML IV (19:50)
--- NOTE | 2023-10-07 20:30 | PTCARENOTE ---
Received pt at 1900 intubated with #8 ETT, 24 at R lip (moved to center). Received on P/C vent settings.. RT switched to A/C 20/500/+5/40% at 1999.. tolerating well. Spo2 97%. Lungs CTA but dim at bases. Suctioned for nothing. Pt. restless at change
of shift, sitting up in bed, trying to gesture with hands, anxious. See worklist for propofol and fentanyl gtt adjustments. Fentanyl boluses also given with good effect. BP has dropped some with increased sedation needs- titrating levophed gtt for
MAP>65- see worklist. NSR on tele, HR 60-80s. Weak DP pulses. No edema. Hypoactive bowel sounds. Pt. had not voided.. bladder scanned for 167ml.. discussed with TILE SETTER APPRENTICE and decision made to insert arcos cath per order. ~100ml yellow urine out
initially. Will monitor UO. R FA #20 with NSS @60ml/hr, L AC #18 with prop, fent and levo gtts. Turning q2. Mouth care completed.
[2023-10-07 20:33] LABS: Urine Albumin 2+ (Neg - Trace); Urine Bilirubin Negative (Negative); Urine Character Slightly Cloudy (Clear); Urine Color Yellow; Urine Glucose Trace (Negative); Urine Ketone Trace (Negative); Urine Leukocyte Negative (Negative); Urine Nitrite Negative (Negative); Urine Occult Blood Trace (Negative); Urine Specific Gravity 1.025 (<1.030); Urine Urobilinogen 1+ (Neg - 1+)
[2023-10-07 20:35] LABS: Osmolality Urine 538 mOsm/kg (300-900)
[2023-10-07 20:41] LABS: Amphetamines Negative (Negative); Barbiturates Negative (Negative); Benzodiazepines Negative (Negative); Buprenorphine Negative (Negative); Cocaine Negative (Negative); Marijuana Negative (Negative); Methadone Negative (Negative); Methamphetamines Negative (Negative); Opiates Negative (Negative); Phencyclidine Negative (Negative); Tricyclic Antidepressants Negative (Negative)
[2023-10-07 20:44] LABS: Urine Bacteria Moderate (Negative); Urine Red Blood Cell 0-2 /HPF (0-2); Urine White Cell 0-2 /HPF (0-5)
[2023-10-07 20:48] LABS: Urine Sodium 52 mmol/L (30-90)
[2023-10-07 21:15] LABS: B.E. -3.4 mmol/L; HCO3 22.7 mmol/L (21-28); Ionized Calcium 1.02 mMOL/L (1.15-1.33); PCO2 44 mmHg (35-48); PO2 120 mmHg (83-108); Potassium 4.3 mMOL/L (3.5-5.1); Sodium 126 mMOL/L (136-145); pH 7.32 (7.35-7.45)
[2023-10-07] MEDS: CALCIUM CHLORIDE 10% SYRINGE 60 MG IV (22:32)
[2023-10-07] MEDS: NSS 500 IV (22:32)
[2023-10-08] VITALS (32 sets, daily range): BP systolic 96–153; BP diastolic 48–89; BMI 18.7; BMI 25.3
--- NOTE | 2023-10-08 | PTCARENOTE ---
Pt reassessed. Urine output was ~15ml/hr after arcos was placed. CHIEF LOCK OPERATOR notified. 500ml bolus given. Last 2 hours UO was 35 and 50ml. Pt. will be calm but then wake up and be very anxious, restless in bed. Fentanyl prn given and gtt now at 75mcg.
Weaning levophed back down. Monitoring
[2023-10-08] MEDS: SUBLIMAZE 100 IV (03:15)
[2023-10-08 03:46] LABS: Hematocrit 30.1 % (39.0-52.0); Hemoglobin 10.9 g/dL (13.0-18.0); Mean Corp Hgb Conc. 36.2 g/dL (33.0-37.0); Mean Corpuscular Hgb 31.8 pg (27.0-31.0); Mean Corpuscular Volume 87.8 fL (80.0-94.0); Mean Platelet Volume 9.1 fL (7.4-10.4); Platelet Count 196 10^3/uL (130-400); Red Blood Cell Count 3.43 10^6/uL (4.70-6.10); Red Cell Dist. Width 11.9 % (11.5-14.5)
[2023-10-08 04:09] LABS: Blood Urea Nitrogen 24 mg/dl (9-20); Calcium 8.5 mg/dl (8.4-10.2); Carbon Dioxide 20 mmol/L (22-30); Chloride 98 mmol/L (98-107); Estimated Creatinine Clearance 70 ml/min; Glucose 108 mg/dl (70-99); Magnesium 1.8 mg/dl (1.6-2.3); Potassium 4.5 mmol/L (3.5-5.1); Sodium 128 mmol/L (135-145); eGFR > 60.00
[2023-10-08] MEDS: VIBRAMYCIN 260 MG IV (04:10)
[2023-10-08] MEDS: DUONEB 3 ML INH ×4 (07:34→19:55)
--- NOTE | 2023-10-08 07:34 | W.PN.INTV ---
Today's Communication / Plan
Recommendations
Extubate
O2
CS
BDs
Atb
Assessment
-
Assessment:
Mr Niall Campos is a 63/M adm 10-07 with worsening dyspnea, patient called EMS, found in significant resp distress and expiratory wheezing. In route to [facility], became unresponsive, received 2 DN treatments. At ER, unresponsive, tachypneic/wheezing,
hypertensive, intubated with no issue at ER (PINKY#8). Per emr, seen at ER as well on 10-03 for few d h/o dyspnea and cough (previously seen by PCP and prescribed doxycycline and low dose prednisone without improvement, brought by EMS, responded to
multiple DNs, d/c home with prednisone taper and alb nebs (prescribed nebulizer as well)
Impression:
Acute respiratory failure
Uncompensated resp acidosis
AECOPD
Hyponatremia at least since 10-03 ER visit
Troponin negative, normal BNP
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
COPD, per emr on tiotropium, no other details available
Depression
Reported h/o HTN in previous ER encounters
Smoker
ETOH use
Plan:
Returned to ER after 10-03 evaluation, at that time stable for d/c on prednisone taper and BDs (previously on doxycycline and prednisone by PCP at that time)
Intubated at ER 10-07 due to resp distress, unresponsiveness
Reportedly intubated with no issue
No available history of previous intubations
Currently on ACV: 20-500-5-0.3 (POx 96%)
Sedation/analgesia: propofol/fentanyl
Daily sedation holiday to assess MS and SBT
Weaning trial this morning as did well on SBT
Tolerated weaning trial, extubated late am 10-08 with no issue
Continue systemic CS: dexamethasone 4 mg IV q8
DNs qid and prn
Trach secs cx: negative
Follow blood cxs pending
Ucx pending
OK with empiric IV doxycycline for now given presence of increased resp secretions
Follow up CXR 10-08, no gross infiltrates
IVFs: NS
Follow Na levels. States very poor oral intake for about 1 wk ARTS ADMINISTRATOR OR MANAGER
NE gtt for 8 hrs till 3 am today
UA with moderate bacteria and 2+ albuminuria, UDS negative
Monitor for DTs
Reportedly h/o chronic ETOH use: per patient (after extubation, last drink about 2 wks ARTS ADMINISTRATOR OR MANAGER)
NRT patch refused by patient 10-08
GI/DVT prophylaxis
Start oral diet if passes bedside swallow evaluation
D/w Mr Campos
Critical care time: 35 min
Diagnostic tests:
CXR 10-08-23: portable, no infiltrates, lordotic, ETT. Old R rib fractures
CXR 10-07-23 c/w and May 2023. Emphysematous lung momin, no pulm infiltrates. No change in mild blunting of costodiaphragmatic angles. Old R rib fractures
Subjective Dataa
Subjective Data
Date of Service:
Date of Service: October 08, 2023
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
Subjective:
Attempted weaning trial yesterday late afternoon but showed ^^RSBI
Able to communicate with writing board and body language
Awake this morning, following commands
Started on weaning trial
Review of Systems
General: Other (denies major complaints using body language)
Objective Data
Data Reviewed
Vital Signs / I&O / Oxygen:
Vital Signs
Temp Pulse Resp BP Pulse Ox
99 F 62 23 122/77 96
10/08/23 04:00 10/08/23 06:15 10/08/23 06:15 10/08/23 06:00 10/08/23 06:15
Intake and Output
10/07/23 10/08/23 10/09/23
06:59 06:59 06:59
Intake Total 3784.9 / 3784.9
Output Total 480 / 480
Balance 3304.9 / 3304.9
SaO2 [A/C] 98
SaO2 [CPAP/PSV] 83
SaO2 [P-A/C] 97
SaO2 96
Physical Exam
General: Comfortable
HEENT: Normocephalic, Moist Mucous Membranes and Other
Cardiovascular: Regular Rhythm, Murmur (n), Peripheral Edema (n) and Calf Tenderness (n)
Respiratory: Wheeze (markedly improved), Rhonchi, Non-Labored Respirations and Stridor (n)
GI: Soft, Non Distended and Non Tender
Neurology: Awake, Oriented and No Motor Deficits
Skin: Dry
Labs/Micro/Reports
Lab Data
10/08/23 03:25
10/08/23 03:25
Laboratory Results
10/07/23 10/07/23 10/07/23
14:36 18:00 21:07
pH 7.33 L Cancelled 7.32 L
pCO2 55 H Cancelled 44
pO2 233 H Cancelled 120 H
HCO3 29.0 H Cancelled 22.7
O2 Delivery Level Cancelled
Microbiology
10/07/23 18:10 Tracheal Aspirate Gram Stain - Preliminary
--- NOTE | 2023-10-08 08:00 | PTCARENOTE ---
pt is awake and alert on vent , communicates by writing , pt is calm , NSR on monitor , BP adequate , 02 is 94% on vent he started a SBT at 0800
[2023-10-08] MEDS: NSS (PRESERVATIVE FREE) 10 ML IV (08:37)
[2023-10-08] MEDS: DECADRON 4 MG IV ×3 (08:37→23:47)
[2023-10-08] MEDS: PROTONIX IV 40 MG IV (08:37)
[2023-10-08 09:47] LABS: B.E. -0.8 mmol/L; HCO3 24.3 mmol/L (21-28); O2 Saturation % 93.2 % (94-98); PCO2 41 mmHg (35-48); PO2 67 mmHg (83-108); pH 7.38 (7.35-7.45)
--- NOTE | 2023-10-08 12:00 | PTCARENOTE ---
pt ABG with SBT 7.38/41/67/24.3 , Dr Rios aware and pt was extubated as ordered he is currently on 4L NC
--- NOTE | 2023-10-08 13:36 | CM ---
CM following re: discharge planning.
Discussed in Rounds, reviewed pt's chart, met with pt.
Pt is a 63 year old male, admitted with primary dx of Acute respiratory failure. Intubated at ER 10-07 due to respiratory distress, unresponsiveness, extubated today to 6L NC of O2, doing well.
Pt reports he lives alone in an apartment. has a brother and per pt his family is not involve in his life. 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 No DMF, VN or SNF history.
Pt admitted to significant h/o alcohol abuse, drink of choice is beer and per pt he used to drink a case of beer daily and cut it down to a case of beer per week. Pt reports he went to inpatient residential D&A rehab around 5 years ago, was sober
for one year, relapsed and per pt he is trying to get away from alcohol addiction by cutting down beer consumption. Pt reports he was going to outpatient D&A rehab and stopped doing it. Per pt he still goes to AA meetings and has a sponsor. CM
provided pt with information regarding [facility] services, pt expressed his agreement to meet with [facility] team. A referral to [facility] made, spoke to FRANSISCO Pozo and she will meet with pt shortly
PCP: [facility].
Pharmacy: [facility] or [facility].
D/C plan: home with [facility] to follow.
CM will follow with discharge plan updates as hospitalization progresses
--- NOTE | 2023-10-08 14:29 | W.PN.HOSP.TC ---
Today's Communication/Plan
-
continue IV Steroids
add OFR
Assessment / Plan
Assessment / Plan
Assessment:
Vent-dependant acute hypoxic respiratory failure
acute COPD exacerbation
- intubated 10/07 and extubated 10/08
- continue Decadron 4mg q8 IV
- continue Doxycycline, day 2
- standing + prn nebs
Acute hyponatremia
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
- s/p IVF
- monitor Na, will add OFR
hx of GERD
- continue PPI BID as IV
Depression on Sertraline
Chronic smoker
- ordered Nicotine patch but patient refusing
Chronic alcohol abuse
- monitor for signs of w/d and DTs
DVT ppx: Lovenox
Code: Full
Total Critical Care Time 38 minutes.� I was immediately available to the patient and staff.� I personally examined,� reviewed labs, diagnostic images/reports, interpretations, treatment plans, discussed patient care with other providers and family
or caregivers (if patient is unable to make decisions), entered orders as appropriate and documented the medical record.
Anticipated Discharge: Within 24 hours
Subjective/Interval History
-
Date of Service: October 08, 2023
awake earlier, followed commands and extubated
remains wheezing, SOB at this time
Objective Data
-
Labs:
Laboratory Results
10/08/23 10/08/23
03:25 09:35
WBC 5.0
Hgb 10.9 L D
Hct 30.1 L
Plt Count 196 D
HCO3 24.3
Sodium 128 L
Potassium 4.5
Chloride 98
Carbon Dioxide 20 L
BUN 24 H
Creatinine 0.9
Glucose 108 H
Calcium 8.5
Vital Signs:
Vital Signs
Temp Pulse Resp BP Pulse Ox
99.1 F 68 28 136/83 96
10/08/23 11:22 10/08/23 12:45 10/08/23 12:45 10/08/23 12:24 10/08/23 12:45
I&O
10/07/23 10/08/23 10/09/23
06:59 06:59 06:59
Intake Total 3784.9 / 3853.5 377.2 / 377.2
Output Total 480 / 555 575 / 575
Balance 3304.9 / 3298.5 -197.8 / -197.8
Physical Exam
-
General: No Apparent Distress
HEENT: Normocephalic and Atraumatic
Respiratory: Wheezes and Decreased Breath Sounds
Cardiac: Regular Rhythm and S1/S2
GI: Soft
Genito-urinary: No Costovertebral Tender
Neuro: AO x 3
Hematologic / Lymphatic: No Lymphadenopathy
Psych: Calm
Data Reviewed
-
Total Time Spent with Patient (in minutes): 42
Labs: Labs Reviewed by me
--- NOTE | 2023-10-08 15:17 | PTCARENOTE ---
pt had swallow per nursing protocol , tolerated well, pt was placed on a regular diet and tolerating well
[2023-10-08] MEDS: LOVENOX 40 MG SC (17:14)
[2023-10-08] MEDS: VIBRAMYCIN 100 MG PO (19:26)
[2023-10-08] MEDS: PROTONIX 40 MG PO (19:26)
--- NOTE | 2023-10-08 19:36 | PTCARENOTE ---
received patient. alert and oriented x3. on 4L NC, diminished breath sounds with slight expiratory wheeze. occasional nonproductive cough. SR on monitor. urinal at bedside. meds given. pt wrapping up dinner, oral care provided. repositioned in bed.
pt care ongoing.
--- NOTE | 2023-10-08 23:53 | PTCARENOTE ---
pt reassessed. resting comfortably in bed, denies pain or SOB. systems unchanged. pt repositions self. pt care ongoing.
[2023-10-09] VITALS (16 sets, daily range): BP systolic 106–163; BP diastolic 67–95; BMI 18.0
[2023-10-09 04:08] LABS: Hematocrit 31.4 % (39.0-52.0); Hemoglobin 11.4 g/dL (13.0-18.0); Mean Corp Hgb Conc. 36.3 g/dL (33.0-37.0); Mean Corpuscular Hgb 32.5 pg (27.0-31.0); Mean Corpuscular Volume 89.5 fL (80.0-94.0); Platelet Count 220 10^3/uL (130-400); Red Blood Cell Count 3.51 10^6/uL (4.70-6.10); Red Cell Dist. Width 12.2 % (11.5-14.5); White Blood Cell Count 5.2 10^3/uL (4.8-10.8)
[2023-10-09 04:42] LABS: Blood Urea Nitrogen 27 mg/dl (9-20); Calcium 8.5 mg/dl (8.4-10.2); Carbon Dioxide 29 mmol/L (22-30); Chloride 102 mmol/L (98-107); Estimated Creatinine Clearance 71 ml/min; Glucose 99 mg/dl (70-99); Magnesium 2.1 mg/dl (1.6-2.3); Potassium 4.2 mmol/L (3.5-5.1); Sodium 136 mmol/L (135-145); eGFR > 60.00
--- NOTE | 2023-10-09 04:52 | PTCARENOTE ---
pt reassessed. AM labs sent. systems unchanged. remains on 6L NC. expiratory wheezing noted. pt denies SOB or pain. pt repositioned, care ongoing.
[2023-10-09 05:12] LABS: Cortisol, Random 2.2 ug/dl; TSH Reflex To Free T4 0.36 uIU/ml (0.47-4.68)
[2023-10-09 05:42] LABS: Free T4 1.37 ng/dl (0.78-2.19)
[2023-10-09] MEDS: DUONEB 3 ML INH ×4 (07:18→19:18)
--- NOTE | 2023-10-09 07:37 | W.PN.INTV ---
Today's Communication / Plan
Recommendations
O2
Atb
BD
CS
GMF
Assessment
-
Assessment:
Mr Niall Campos is a 63/M adm 10-07 with worsening dyspnea, patient called EMS, found in significant resp distress and expiratory wheezing. In route to DH, became unresponsive, received 2 DN treatments. At ER, unresponsive, tachypneic/wheezing,
hypertensive, intubated with no issue at ER (PINKY#8). Per emr, seen at ER as well on 10-03 for few d h/o dyspnea and cough (previously seen by PCP and prescribed doxycycline and low dose prednisone without improvement, brought by EMS, responded to
multiple DNs, d/c home with prednisone taper and alb nebs (prescribed nebulizer as well)
Impression:
Acute respiratory failure
Uncompensated resp acidosis
AECOPD
Hyponatremia at least since 10-03 ER visit
Troponin negative, normal BNP
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
COPD, per emr on tiotropium, no other details available
Depression
Reported h/o HTN in previous ER encounters
Smoker
ETOH use
Plan:
Returned to ER after 10-03 evaluation, at that time stable for d/c on prednisone taper and BDs (previously on doxycycline and prednisone by PCP at that time)
Intubated at ER 10-07 due to resp distress, unresponsiveness
Reportedly intubated with no issue
Was on ACV
Tolerated weaning trial, extubated late am 10-08 with no issue
Currently on O2 NC 5L, POx 99%
Continue systemic CS: dexamethasone 4 mg IV q8, change to prednisone 40 mg qd 10-09, taper as tolerated
DNs qid and prn
Trach secs cx: negative
Follow blood cxs so far negative
Ucx pending
OK with empiric IV doxycycline for now given presence of increased resp secretions, changed to po 100 mg bid to complete 5 d regimen
Follow up CXR 10-08, no gross infiltrates
IVFs: NS fluid resuscitation completed
Hyponatremia now corrected. States very poor oral intake for about 1 wk TIN POT OPERATOR
NE gtt for 8 hrs till 3 am 09-28
UA with moderate bacteria and 2+ albuminuria, Ucx pending, UDS negative
Monitor for DTs
Reportedly h/o chronic ETOH use: per patient (after extubation, last drink about 2 wks TIN POT OPERATOR)
NRT patch refused by patient 10-08
Strongly advised to quit smoking
GI/DVT prophylaxis
Started oral diet 10-08 with no issue
D/w Mr Campos
Can transfer to [facility], pulm to follow
Diagnostic tests:
CXR 10-08-23: portable, no infiltrates, lordotic, ETT. Old R rib fractures
CXR 10-07-23 c/w and May 2023. Emphysematous lung momin, no pulm infiltrates. No change in mild blunting of costodiaphragmatic angles. Old R rib fractures
Subjective Dataa
Subjective Data
Date of Service:
Date of Service: October 09, 2023
Chief Complaint: Tactical Deception Plans Officer Follow Up
Subjective:
Extubated with no issue yesterday
Comfortable on oxygen nasal cannula
Cough continues though difficult to speak tolerating
Not on home O2 but on a Spiriva and albuterol
Review of Systems
General: Fever (n), Sweats (n), Chills and Satisfactory Appetite
HEENT: Epistaxis (n) and Dysphagia (n)
Cardiopulmonary: Dyspnea, Cough and Wheezing
GI: Abdominal Pain (n), Nausea (n) and Vomiting (n)
Neuro: Weakness
Objective Data
Data Reviewed
Vital Signs / I&O / Oxygen:
Vital Signs
Temp Pulse Resp BP Pulse Ox
98.0 F 76 20 126/70 96
10/09/23 03:33 10/09/23 07:18 10/09/23 07:18 10/09/23 06:00 10/09/23 07:18
Intake and Output
10/08/23 10/09/23 10/10/23
06:59 06:59 06:59
Intake Total 3784.9 / 3853.5 1177.2 / 1177.2
Output Total 480 / 555 3100 / 3100
Balance 3304.9 / 3298.5 -1922.8 / -1922.8
SaO2 [A/C] 98
SaO2 [CPAP/PSV] 90
SaO2 [P-A/C] 97
SaO2 96
Nasal Cannula flow liters per 4
minute
Physical Exam
General: Comfortable
HEENT: Normocephalic, Moist Mucous Membranes and Other
Cardiovascular: Regular Rhythm, Murmur (n), Peripheral Edema (n) and Calf Tenderness (n)
Respiratory: Wheeze (markedly improved), Rhonchi, Non-Labored Respirations and Stridor (n)
GI: Soft, Non Distended and Non Tender
Neurology: Awake, Oriented and No Motor Deficits
Skin: Dry
Labs/Micro/Reports
Lab Data
10/09/23 03:39
10/09/23 03:39
Laboratory Results
10/08/23
09:35
pH 7.38
pCO2 41
pO2 67 L
HCO3 24.3
O2 Delivery Level
Microbiology
10/07/23 13:04 Blood/Venous Blood Culture - Preliminary
No Growth in 24 hours- Final report to follow
10/07/23 18:10 Tracheal Aspirate Respiratory Culture - Preliminary
Usual Respiratory Esther
10/07/23 18:10 Tracheal Aspirate Gram Stain - Preliminary
[2023-10-09] MEDS: DECADRON 4 MG IV (07:51)
[2023-10-09] MEDS: PROTONIX 40 MG PO ×2 (07:52→19:49)
[2023-10-09] MEDS: ZOLOFT 100 MG PO (07:52)
[2023-10-09] MEDS: VIBRAMYCIN 100 MG PO ×2 (07:52→19:49)
--- NOTE | 2023-10-09 08:39 | PTCARENOTE ---
pt is awake and alert , pleasant , NSR with prolong QT on monitor , BP elevated 151/95, pt on 5L NC with sats of 97% , tachypneic and scattered rhonchi throughout , improved since yesterday , tolerating diet , encouraging to increase activity ,
urine output adequate
--- NOTE | 2023-10-09 12:35 | PN.CDI ---
CDI
- -
CDI:
Physician Documentation Request
Admit Date: 10/07/23 15:00
Dear Doctor Klaudia,
Clinical Indicators:
Patient admitted with acute hypoxic respiratory failure due to COPD exacerbation.
10/07 Intubated in ED, placed on propofol and fentanyl gtts for sedation.
10/07 (20:30) RN note, 'BP has dropped some with increased sedation needs- titrating levophed gtt for MAP>65'.
Norepinephrine requirements: 2 -5 mcg/min (19:00 - 03:04)
BP/MAP trend:
10/07/23
15:25 10/07/23
16:00 10/07/23
17:41
Blood pressure 60/41 46/38 72/52
MAP (cuff-Gregg Monitor) 48 43 58
10/07/23
18:30 10/07/23
19:00
Blood pressure 66/49 74/51
MAP (cuff-Gregg Monitor) 57 59
Please clarify which of the following is the most likely etiology of the above symptoms and treatment rendered:
Drug Induced Shock, due to sedation
Shock, other (please specify)
Hypotension only due to sedation
Other, please specify
Use of terms such as suspected, likely, concern for, or probable (associated with a specific diagnosis that is being evaluated, monitored, or treated as if it exists) are acceptable and can be coded in the inpatient setting, when documented at the
time of discharge.
Thank you,
Marion Yadav RN
CDI Specialist
available via tiger text
Please use your independent medical judgment in providing your response.
--- NOTE | 2023-10-09 12:51 | PN.CDI ---
CDI
- -
CDI:
Physician Documentation Request
Admit Date: 10/07/23 15:00
Dear Doctor Klaudia,
Clinical Indicators:
Patient admitted with acute COPD exacerbation.
Height: 5 ft 11 in
Weight: 129 lbs 3 oz
BMI: 18.0
If possible, please provide an associated diagnosis related to the abnormal BMI , such as:
Underweight
Cachectic
BMI is not significant
Other, please specify
Use of terms such as suspected, likely, concern for, or probable (associated with a specific diagnosis that is being evaluated, monitored, or treated as if it exists) are acceptable and can be coded in the inpatient setting, when documented at the
time of discharge.
Thank you,
AMADOU Crawford RN
CDI Specialist
available via tiger text
Please use your independent medical judgment in providing your response.
--- NOTE | 2023-10-09 13:06 | W.PN.HOSP.TC ---
Today's Communication/Plan
-
floor
PO steroids
wean O2
Assessment / Plan
Assessment / Plan
Assessment:
Vent-dependant acute hypoxic respiratory failure
acute COPD exacerbation
- intubated 10/07 and extubated 10/08
- transitioned to prednisone 40mg - prolonged taper at discharge
- continue Doxycycline, day 3
- standing + prn nebs
Acute hyponatremia
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
- s/p IVF
- monitor Na, will continue OFR. NA levels improved
hx of GERD
- continue PPI BID as IV
Depression on Sertraline
Chronic smoker
- ordered Nicotine patch but patient refusing
Chronic alcohol abuse
- monitor for signs of w/d and DTs
- BCARES following
Underweight
Drug induced shock in setting of sedation
- require NE gtt for 8 hours now off and stable
DVT ppx: Lovenox
Code: Full
Dispo: to Tele
Anticipated Discharge: > 48 hours
Subjective/Interval History
-
Date of Service: October 09, 2023
Comfortable on oxygen nasal cannula
Cough continues though difficult to speak tolerating
Not on home O2 but on a Spiriva and albuterol
Objective Data
-
Labs:
Laboratory Results
10/09/23
03:39
WBC 5.2
Hgb 11.4 L
Hct 31.4 L
Plt Count 220
Sodium 136 D
Potassium 4.2
Chloride 102
Carbon Dioxide 29
BUN 27 H
Creatinine 0.9
Glucose 99
Calcium 8.5
Vital Signs:
Vital Signs
Temp Pulse Resp BP Pulse Ox
97.5 F 69 24 141/71 95
10/09/23 11:46 10/09/23 12:00 10/09/23 12:00 10/09/23 12:00 10/09/23 12:00
I&O
10/08/23 10/09/23 10/10/23
06:59 06:59 06:59
Intake Total 3784.9 / 3853.5 1177.2 / 1177.2
Output Total 480 / 555 3100 / 3100
Balance 3304.9 / 3298.5 -1922.8 / -1922.8
Physical Exam
-
General: No Apparent Distress
HEENT: Normocephalic and Atraumatic
Respiratory: Wheezes; Negative Rales
Cardiac: Regular Rhythm and S1/S2
GI: Soft
Genito-urinary: No Costovertebral Tender
Neuro: AO x 3
Psych: Calm
Data Reviewed
-
Total Time Spent with Patient (in minutes): 45
Labs: Labs Reviewed by me
--- NOTE | 2023-10-09 13:28 | PTCARENOTE ---
pt now written for telemetry status
[2023-10-09] MEDS: DELTASONE 40 MG PO (14:45)
--- NOTE | 2023-10-09 16:30 | PTCARENOTE ---
Assumed care of pt at 1600 following transfer of care report. Pt received sitting OOB in chair. Denies complaints. Physical assessment completed as documented. Call corbin w/in pt reach. Reinforced importance of early mobility and mobilizing
secretions with pt.
[2023-10-09] MEDS: LOVENOX 40 MG SC (18:27)
--- NOTE | 2023-10-09 22:47 | PTCARENOTE ---
Patient AAOx3, following commands, denying pain. Normal sinus, 60s-70s. BP stable. Lung sounds diminished, expiratory wheeze noted. On 5 liters nasal cannula, saturating 92%. Short of breath with exertion. Urinal to void, no bowel movement. Foams on
elbows and heels, bruises on knees present on admission. PIVs WNL. Hourly rounding and patient safety checks ongoing.
[2023-10-10] VITALS (13 sets, daily range): BP systolic 112–144; BP diastolic 56–112; BMI 19.4
[2023-10-10 04:11] LABS: Hematocrit 27.7 % (39.0-52.0); Hemoglobin 10.1 g/dL (13.0-18.0); Mean Corp Hgb Conc. 36.5 g/dL (33.0-37.0); Mean Corpuscular Hgb 32.1 pg (27.0-31.0); Mean Corpuscular Volume 87.9 fL (80.0-94.0); Mean Platelet Volume 8.9 fL (7.4-10.4); Platelet Count 230 10^3/uL (130-400); Red Blood Cell Count 3.15 10^6/uL (4.70-6.10); Red Cell Dist. Width 12.2 % (11.5-14.5); White Blood Cell Count 6.6 10^3/uL (4.8-10.8)
[2023-10-10 04:35] LABS: Blood Urea Nitrogen 20 mg/dl (9-20); Calcium 8.1 mg/dl (8.4-10.2); Carbon Dioxide 34 mmol/L (22-30); Chloride 99 mmol/L (98-107); Estimated Creatinine Clearance 92 ml/min; Glucose 101 mg/dl (70-99); Potassium 3.9 mmol/L (3.5-5.1); Sodium 132 mmol/L (135-145); eGFR > 60.00
[2023-10-10] MEDS: DUONEB 3 ML INH ×4 (07:34→19:29)
[2023-10-10] MEDS: DELTASONE 40 MG PO (07:39)
[2023-10-10] MEDS: VIBRAMYCIN 100 MG PO ×2 (07:39→19:57)
[2023-10-10] MEDS: ZOLOFT 100 MG PO (07:39)
[2023-10-10] MEDS: PROTONIX 40 MG PO ×2 (07:39→19:57)
--- NOTE | 2023-10-10 07:51 | W.PN.INTV ---
Today's Communication / Plan
Recommendations
O2
Atb
CS
BDs
Assessment
-
Assessment:
Mr Niall Campos is a 63/M adm 10-07 with worsening dyspnea, patient called EMS, found in significant resp distress and expiratory wheezing. In route to DH, became unresponsive, received 2 DN treatments. At ER, unresponsive, tachypneic/wheezing,
hypertensive, intubated with no issue at ER (PINYK#8). Per emr, seen at ER as well on 10-03 for few d h/o dyspnea and cough (previously seen by PCP and prescribed doxycycline and low dose prednisone without improvement, brought by EMS, responded to
multiple DNs, d/c home with prednisone taper and alb nebs (prescribed nebulizer as well)
Impression:
Acute respiratory failure
Uncompensated resp acidosis
AECOPD
Hyponatremia at least since 10-03 ER visit
Troponin negative, normal BNP
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
COPD, per emr on tiotropium, no other details available
Depression
Reported h/o HTN in previous ER encounters
Smoker
ETOH use
Plan:
Returned to ER after 10-03 evaluation, at that time stable for d/c on prednisone taper and BDs (previously on doxycycline and prednisone by PCP at that time)
Intubated at ER 10-07 due to resp distress, unresponsiveness
Reportedly intubated with no issue
Was on ACV
Tolerated weaning trial, extubated late am 10-08 with no issue
Currently on O2 NC 5L, POx 99%
Continue systemic CS: dexamethasone 4 mg IV q8, change to prednisone 40 mg qd 10-09, taper as tolerated
DNs qid and prn
Can transition DNs to albuterol prn and resume outpatient tiotropium if stable on 10-11
Trach secs cx: negative
Follow blood cxs so far negative
Ucx negative
OK with empiric IV doxycycline for now given presence of increased resp secretions. Changed to po 100 mg bid to complete 5 d regimen
Follow up CXR 10-08, no gross infiltrates
IVFs: NS fluid resuscitation completed
Hyponatremia now corrected. States very poor oral intake for about 1 wk BRIDGE ATTACHER. Off IVFs now
NE gtt for 8 hrs till 3 am 09-28
UA with moderate bacteria and 2+ albuminuria, Ucx negative
UDS negative
Reportedly h/o chronic ETOH use: per patient last drink about 2 wks BRIDGE ATTACHER
NRT patch refused by patient 10-08
Strongly advised to quit smoking
GI/DVT prophylaxis
Started oral diet 10-08 with no issue
D/w Mr Campos
Can transfer to [facility], pulm to follow briefly
Offered outpatient follow up upon d/c (new patient)
Diagnostic tests:
CXR 10-08-23: portable, no infiltrates, lordotic, ETT. Old R rib fractures
CXR 10-07-23 c/w and May 2023. Emphysematous lung momin, no pulm infiltrates. No change in mild blunting of costodiaphragmatic angles. Old R rib fractures
Subjective Dataa
Subjective Data
Date of Service:
Date of Service: October 10, 2023
Chief Complaint: Rn Progressive Care Follow Up
Subjective:
No major issues overnight
Dyspnea and cough improving
Review of Systems
General: Fever (n), Sweats, Chills (n) and Satisfactory Appetite
HEENT: Epistaxis (n) and Dysphagia (n)
Cardiopulmonary: Dyspnea, Cough, Sputum Production and Wheezing
GI: Abdominal Pain (n), Nausea (n) and Vomiting
Neuro: Weakness
Objective Data
Data Reviewed
Vital Signs / I&O / Oxygen:
Vital Signs
Temp Pulse Resp BP Pulse Ox
97.6 F 68 16 112/56 99
10/10/23 00:00 10/10/23 07:35 10/10/23 07:35 10/10/23 06:00 10/10/23 07:35
Intake and Output
10/09/23 10/10/23 10/11/23
06:59 06:59 06:59
Intake Total 1177.2 / 1177.2 240 / 240
Output Total 3100 / 3100 1025 / 1025
Balance -1922.8 / -1922.8 -785 / -785
SaO2 [A/C] 98
SaO2 [CPAP/PSV] 90
SaO2 [P-A/C] 97
SaO2 99
Nasal Cannula flow liters per 5
minute
Physical Exam
General: Comfortable
HEENT: Normocephalic, Moist Mucous Membranes and Other
Cardiovascular: Regular Rhythm, Murmur (n), Peripheral Edema (n) and Calf Tenderness (n)
Respiratory: Wheeze (markedly improved), Rhonchi, Non-Labored Respirations and Stridor (n)
GI: Soft, Non Distended and Non Tender
Neurology: Awake, Oriented and No Motor Deficits
Skin: Dry
Labs/Micro/Reports
Lab Data
10/10/23 03:48
10/10/23 03:48
Microbiology
10/07/23 13:04 Blood/Venous Blood Culture - Preliminary
No Growth in 48 hours- Final report to follow
10/07/23 20:20 Urine Urine Culture - Final
NO GROWTH
10/07/23 18:10 Tracheal Aspirate Respiratory Culture - Final
Usual Respiratory Esther
10/07/23 18:10 Tracheal Aspirate Gram Stain - Final
--- NOTE | 2023-10-10 07:53 | PTCARENOTE ---
Patient received at bedside by Night RN. Patient AAOx3, lung sounds diminished on auscultation, currently receiving a breathing treatment. Patient weaned down to 4L NC. Patient bringing up a lot of mucous in emesis bag. Pt reports no distress at
this time. VS within normal limits. Patient given morning Meds and helped with morning meal call in.
--- NOTE | 2023-10-10 12:30 | PTCARENOTE ---
Received patient 1215 from ICU. Patient is AAOx3, no c/o pain, c/o weakness. Lungs diminished, coarse breath sounds in upper lobes, 3L nc 93-94%, call alaniz in reach.
--- NOTE | 2023-10-10 12:31 | CM ---
CM following re: discharge planning.
Discussed in Rounds, reviewed pt's chart, met with pt. Per Rounds meeting, pt requires 3L NC of O2, has no home Oxygen.
Pt met with [facility] yesterday, expressed no interest going to inpatient or outpatient D&A treatment programs due to lack of transportation. Per [facility] CRS pt agrees with continue attending AA meetings and sponsor support. Pt stated he does
not drive and has to work to make some money.
D/C plan: home with anticipated no needs. Pt will resume AA meetings and will follow up with [facility] as needed. Monitoring O2 requirements.
CM will follow with discharge plan updates as hospitalization progresses
--- NOTE | 2023-10-10 14:31 | W.PN.HOSP.TC ---
Today's Communication/Plan
-
continue steroids
wean O2 and home O2 testing in AM
Assessment / Plan
Assessment / Plan
Assessment:
Vent-dependant acute hypoxic respiratory failure
acute COPD exacerbation
- intubated 10/07 and extubated 10/08
- transitioned to prednisone 40mg - prolonged taper at discharge
- continue Doxycycline, day 12/12
- standing + prn nebs
Acute hyponatremia
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
- s/p IVF
- monitor Na, will continue OFR. NA levels improving
hx of GERD
- continue PPI BID as IV
Depression on Sertraline
Chronic smoker
- ordered Nicotine patch but patient refusing
Chronic alcohol abuse
- monitor for signs of w/d and DTs
- BCARES following
Underweight
Drug induced shock in setting of sedation
- require NE gtt for 8 hours now off and stable
DVT ppx: Lovenox
Code: Full
Anticipated Discharge: 24 - 48 hours
Subjective/Interval History
-
Date of Service: October 10, 2023
dyspnea/cough improving
Objective Data
-
Labs:
Laboratory Results
10/10/23
03:48
WBC 6.6
Hgb 10.1 L
Hct 27.7 L
Plt Count 230
Sodium 132 L
Potassium 3.9
Chloride 99
Carbon Dioxide 34 H
BUN 20
Creatinine 0.7
Glucose 101 H
Calcium 8.1 L
Vital Signs:
Vital Signs
Temp Pulse Resp BP Pulse Ox
97.9 F 66 17 131/76 97
10/10/23 12:10 10/10/23 12:10 10/10/23 12:10 10/10/23 12:10 10/10/23 12:10
I&O
10/09/23 10/10/23 10/11/23
06:59 06:59 06:59
Intake Total 1177.2 / 1177.2 240 / 240
Output Total 3100 / 3100 1025 / 1025
Balance -1922.8 / -1922.8 -785 / -785
Physical Exam
-
General: No Apparent Distress
HEENT: Normocephalic and Atraumatic
Respiratory: Negative Wheezes
Cardiac: Regular Rhythm
GI: Soft
Genito-urinary: No Costovertebral Tender
Musculoskeletal: No Edema
Neuro: AO x 3
Hematologic / Lymphatic: No Lymphadenopathy
Psych: Calm
Data Reviewed
-
Total Time Spent with Patient (in minutes): 47
Labs: Labs Reviewed by me
[2023-10-10] MEDS: LOVENOX 40 MG SC (17:15)
--- NOTE | 2023-10-10 17:28 | PTCARENOTE ---
Patient is weak and needs assistance to ambulate to bed. Physician made aware. Orders for PT/OT will be placed in the AM 2/2.
[2023-10-11] VITALS (8 sets, daily range): BP systolic 129–155; BP diastolic 76–87; PULSE 92; O2SAT 94
[2023-10-11 06:01] LABS: Hematocrit 31.1 % (39.0-52.0); Hemoglobin 11.1 g/dL (13.0-18.0); Mean Corp Hgb Conc. 35.7 g/dL (33.0-37.0); Mean Corpuscular Hgb 32.3 pg (27.0-31.0); Mean Corpuscular Volume 90.4 fL (80.0-94.0); Platelet Count 280 10^3/uL (130-400); Red Blood Cell Count 3.44 10^6/uL (4.70-6.10); White Blood Cell Count 9.4 10^3/uL (4.8-10.8)
[2023-10-11 06:26] LABS: Blood Urea Nitrogen 23 mg/dl (9-20); Calcium 8.6 mg/dl (8.4-10.2); Carbon Dioxide 36 mmol/L (22-30); Chloride 94 mmol/L (98-107); Estimated Creatinine Clearance 87 ml/min; Glucose 84 mg/dl (70-99); Potassium 3.6 mmol/L (3.5-5.1); Sodium 135 mmol/L (135-145); eGFR > 60.00
[2023-10-11] MEDS: DUONEB 3 ML INH ×4 (07:28→19:28)
--- NOTE | 2023-10-11 08:39 | W.PN.PUL3 ---
Today's Communication / Plan
-
Continue prednisone, no change
Add Symbicort 2 puffs twice a day
Continue DuoNebs every 6 hours
Continue doxycycline, last day 2/
Will require follow-up with pulmonary as outpatient
Assessment
-
Mr Niall Campos is a 63/M adm 10-07 with worsening dyspnea, patient called EMS, found in significant resp distress and expiratory wheezing. In route to , became unresponsive, received 2 DN treatments. At ER, unresponsive, tachypneic/wheezing,
hypertensive, intubated with no issue at ER (PINKY#8). Per emr, seen at ER as well on 10-03 for few d h/o dyspnea and cough (previously seen by PCP and prescribed doxycycline and low dose prednisone without improvement, brought by EMS, responded to
multiple DNs, d/c home with prednisone taper and alb nebs (prescribed nebulizer as well)
Acute respiratory failure
Uncompensated resp acidosis
AECOPD
Hyponatremia at least since 10-03 ER visit
Troponin negative, normal BNP
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
COPD, per emr on tiotropium, no other details available
Depression
Reported h/o HTN in previous ER encounters
Smoker
ETOH use
Plan/recommendations
At this time, patient appears to be stable. Significant poor air movement on exam, mild wheezing with mild use of accessory muscles with conversation
Recent intubation noted, VDRF
Patient continues to smoke half a pack, has 45+ pack year history of smoking
Also has significant alcohol use, drinks 15 beers every 2 weeks, usually in 1 day, binge drinking. Significant alcohol use in the past
Moving forward
Continue with current management. Patient has not been transition to 40 mg prednisone
Still with poor air movement, mild wheezing
Patient on Spiriva as outpatient, likely will require stronger inhaler therapy
Start Symbicort 160/4.52 puffs twice a day
Continue DuoNebs for now, every 6 hours. Will plan to resume Spiriva at time of discharge
Continue doxycycline 100 mg twice a day. Last dose 10/12/2023
Patient aware of the importance of tobacco cessation
Reviewed CT chest 2021, moderate emphysema. There is a small nodule at the right base, likely subpleural atelectasis
He is due for lung cancer screening. This can be done as an outpatient
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
15 beers every 2 weeks
Follow
GI prophylaxis: Protonix while on steroids
DVT prophylaxis: Continue Lovenox
Ambulate, screen for oxygen therapy
Possible discharge in the next 24 to 48 hours
Not ready for discharge at this time
Strongly recommend follow-up with pulmonary. Information left in chart
Diagnostic tests:
CXR 10-08-23: portable, no infiltrates, lordotic, ETT. Old R rib fractures
CXR 10-07-23 c/w 25 and Sept 2022. Emphysematous lung momin, no pulm infiltrates. No change in mild blunting of costodiaphragmatic angles. Old R rib fractures
Subjective Data
-
Date of Service:
Date of Service: October 11, 2023
Subjective:
Patient continues to have shortness of breath, cough, wheezing but denies chest pain. Mild use of accessory muscles with conversation. Otherwise appears comfortable. Denies nausea, abdominal pain, diarrhea
Objective Data
Data Reviewed
Vital Signs / I&O / Oxygen:
Vital Signs
Temp Pulse Resp BP Pulse Ox
97.7 F 77 20 146/76 92
10/11/23 07:53 10/11/23 07:53 10/11/23 07:53 10/11/23 07:53 10/11/23 07:53
Intake and Output
10/10/23 10/11/23 10/12/23
06:59 06:59 06:59
Intake Total 240 / 240 1360 / 1360
Output Total 1025 / 1025 2049
Balance -785 / -785 -690 / -690
SaO2 [A/C] 98
SaO2 [CPAP/PSV] 90
SaO2 [P-A/C] 97
SaO2 92
Nasal Cannula flow liters per 3
minute
Physical Exam
General: Comfortable
HEENT: Normocephalic, Anicteric and Other (Poor dentition)
Cardiovascular: S1-S2, Regular Rhythm, Murmur (n), Rub (n), Peripheral Edema (n) and Calf Tenderness (n)
Respiratory: Wheeze (Mild expiratory), Crackles (n), Rhonchi (n), Accessory Resp Muscle Use (Mild with conversation) and Other (Poor air movement, decreased breath sounds)
GI: Soft, Non Distended and Non Tender
Neurology: Awake, Alert and No Motor Deficits (Able to sit up without assistance)
Skin: Jaundice (n), Rash (n) and Bruising (n)
Labs/Micro/Reports
Lab Data
10/11/23 05:37
10/11/23 05:37
Microbiology
10/07/23 13:04 Blood/Venous Blood Culture - Preliminary
No Growth in 72 hours- Final report to follow
10/07/23 20:20 Urine Urine Culture - Final
NO GROWTH
10/07/23 18:10 Tracheal Aspirate Respiratory Culture - Final
Usual Respiratory Esther
10/07/23 18:10 Tracheal Aspirate Gram Stain - Final
[2023-10-11] MEDS: ZOLOFT 100 MG PO (08:57)
[2023-10-11] MEDS: PROTONIX 40 MG PO ×2 (08:57→20:44)
[2023-10-11] MEDS: VIBRAMYCIN 100 MG PO ×2 (08:57→20:44)
[2023-10-11] MEDS: DELTASONE 40 MG PO (08:57)
--- NOTE | 2023-10-11 10:43 | W.PN.HOSP.TC ---
Today's Communication/Plan
-
continue PO steroids
continue nebs/inhalers
PT/OT eval
Assessment / Plan
Assessment / Plan
Assessment:
Vent-dependant acute hypoxic respiratory failure
acute COPD exacerbation
- intubated 10/07 and extubated 10/08
- transitioned to prednisone 40mg. No change today, Eventual prolonged taper at discharge
- continue Doxycycline through 10/12
- standing + prn nebs
- add Symbicort
- OP Follow up with Dr. Walls's office for PFTs, pulm rehab.
Acute hyponatremia
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
- s/p IVF
- monitor Na, will continue OFR. Na levels improving
hx of GERD
- continue PPI BID as IV
Depression on Sertraline
Chronic smoker
- ordered Nicotine patch but patient refusing
Chronic alcohol abuse
- monitor for signs of w/d and DTs
- BCARES following
Underweight
Drug induced shock in setting of sedation
- require NE gtt for 8 hours now off and stable
DVT ppx: Lovenox
Code: Full
Anticipated Discharge: > 48 hours
Subjective/Interval History
-
Date of Service: October 11, 2023
denies any new complaints but reports unable to move much due to generalized weakness
on 3L 92%
Objective Data
-
Labs:
Laboratory Results
10/11/23 10/11/23
05:37 10:16
WBC 9.4
Hgb 11.1 L
Hct 31.1 L
Plt Count 280 D
HCO3 Pending
Sodium 135
Potassium 3.6
Chloride 94 L
Carbon Dioxide 36 H
BUN 23 H
Creatinine 0.8
Glucose 84
Calcium 8.6
Vital Signs:
Vital Signs
Temp Pulse Resp BP Pulse Ox
97.7 F 77 20 146/76 92
10/11/23 07:53 10/11/23 07:53 10/11/23 07:53 10/11/23 07:53 10/11/23 08:25
I&O
10/10/23 10/11/23 10/12/23
06:59 06:59 06:59
Intake Total 240 / 240 1360 / 1360
Output Total 1025 / 1025 2049
Balance -785 / -785 -690 / -690
Physical Exam
-
General: No Apparent Distress and Other (globally weak appearing)
HEENT: Normocephalic and Atraumatic
Respiratory: Wheezes (expiratory); Negative Rales
Cardiac: Regular Rhythm and S1/S2
GI: Soft
Genito-urinary: No Costovertebral Tender
Musculoskeletal: No Edema
Neuro: AO x 3
Hematologic / Lymphatic: No Lymphadenopathy
Psych: Calm
Data Reviewed
-
Total Time Spent with Patient (in minutes): 45
Labs: Labs Reviewed by me
[2023-10-11 11:32] LABS: B.E. 13.2 mmol/L; HCO3 38.2 mmol/L (21-28); O2 Saturation % 89.5 % (94-98); PCO2 49 mmHg (35-48)
[2023-10-11 11:33] LABS: O2 Therapy RA
[2023-10-11 11:34] LABS: PO2 59 mmHg (83-108)
--- NOTE | 2023-10-11 11:41 | PN.CDI ---
CDI
- -
CDI:
Physician Documentation Request
Admit Date: 10/07/23 15:00
Dear Doctor Klaudia,
Clinical Indicators:
Patient admitted with acute COPD exacerbation.
10/07 RN skin assessment: Bilateral Elbows Stage I pressure injury, POA
Treatment: No sting barrier and adhesive foam per protocol
Physician documentation of the type and location of wounds is required for compliant documentation. Based on the above clinical findings and your assessment, please provide the following in your progress note:
1. Location of the ulcer/wound, including laterality.
2. Type (etiology) of ulcer/wound:
- Pressure (decubitus) ulcer
- Other, please specify
- Unable to determine
3. If a pressure ulcer, please also include the stage* of the ulcer:
- Stage 1 - Skin intact, non-blanchable redness
- Stage 2 - Partial thickness loss of dermis, includes intact or open blister
- Stage 3 - Full thickness tissue not including bone, tendon or muscle
- Stage 4 - Full thickness tissue loss, including exposed bone, tendon or muscle
- Unstageable - Full thickness loss in which the base of the ulcer is covered by slough (yellow, crocker, brown, green or brown) and/or eschar (crocker, brown or black) in the wound bed.
- Unable to determine
Use of terms such as suspected, likely, concern for, or probable (associated with a specific diagnosis that is being evaluated, monitored, or treated as if it exists) are acceptable and can be coded in the inpatient setting, when documented at the
time of discharge.
Thank you,
AMADOU Crawford RN
CDI Specialist
available via tiger text
Please use your independent medical judgment in providing your response.
*Source: National Pressure Ulcer Advisory Panel (NPUAP)
--- NOTE | 2023-10-11 16:25 | CM ---
met with patient who is adm with copd.on pulmicort,po prednisone,nebs,on 3 litrs nc o2.patient may need home oxygen when discharged from hospital. he stated he needs transport to dr edmond.i suggested [facility] transport but he has used them in
the past and states they re not reliable.he does have a woman who lies in the area who will assist with transport.
plan is home with aa meetings.a walking o2 eval will be done for possible home oxygen prior to dischrge.
[2023-10-11] MEDS: LOVENOX 40 MG SC (17:25)
[2023-10-11] MEDS: SYMBICORT 160/4.5 MCG INHALER 2 PUFF INH (19:28)
[2023-10-12] VITALS (7 sets, daily range): BP systolic 101–143; BP diastolic 64–78; PULSE 88; O2SAT 92
[2023-10-12 07:03] LABS: Hematocrit 31.6 % (39.0-52.0); Hemoglobin 11.1 g/dL (13.0-18.0); Mean Corp Hgb Conc. 35.1 g/dL (33.0-37.0); Mean Corpuscular Hgb 32.3 pg (27.0-31.0); Mean Corpuscular Volume 91.9 fL (80.0-94.0); Mean Platelet Volume 9.1 fL (7.4-10.4); Platelet Count 329 10^3/uL (130-400); Red Blood Cell Count 3.44 10^6/uL (4.70-6.10); Red Cell Dist. Width 11.8 % (11.5-14.5); White Blood Cell Count 9.4 10^3/uL (4.8-10.8)
[2023-10-12 07:31] LABS: Blood Urea Nitrogen 23 mg/dl (9-20); Calcium 8.3 mg/dl (8.4-10.2); Carbon Dioxide 37 mmol/L (22-30); Chloride 97 mmol/L (98-107); Estimated Creatinine Clearance 87 ml/min; Glucose 76 mg/dl (70-99); Potassium 3.9 mmol/L (3.5-5.1); Sodium 134 mmol/L (135-145); eGFR > 60.00
[2023-10-12] MEDS: SYMBICORT 160/4.5 MCG INHALER 2 PUFF INH ×2 (07:52→19:21)
[2023-10-12] MEDS: DUONEB 3 ML INH ×4 (07:52→19:21)
[2023-10-12] MEDS: PROTONIX 40 MG PO ×2 (07:59→19:44)
[2023-10-12] MEDS: DELTASONE 40 MG PO (07:59)
[2023-10-12] MEDS: VIBRAMYCIN 100 MG PO (07:59)
[2023-10-12] MEDS: ZOLOFT 100 MG PO (07:59)
--- NOTE | 2023-10-12 11:11 | W.PN.HOSP.TC ---
Today's Communication/Plan
-
repeat PT to improve endurance to allow accurate home O2 testing
Assessment / Plan
Assessment / Plan
Assessment:
Vent-dependant acute hypoxic respiratory failure
acute COPD exacerbation
- intubated 10/07 and extubated 10/08
- transitioned to prednisone 40mg. No change today, Eventual prolonged taper at discharge
- continue Doxycycline through 10/12
- standing + prn nebs
- continue Symbicort
- OP Follow up with Dr. Walls's office for PFTs, pulm rehab.
Acute hyponatremia
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
- s/p IVF
- monitor Na, will continue OFR. Na levels improving
hx of GERD
- continue PPI BID
Depression on Sertraline
Chronic smoker
- ordered Nicotine patch but patient refusing
Chronic alcohol abuse
- monitor for signs of w/d and DTs
- BCARES following
Underweight status
Drug induced shock in setting of sedation
- require NE gtt for 8 hours now off and stable
Bilateral Elbows Stage I pressure injury, POA
DVT ppx: Lovenox
Code: Full
Anticipated Discharge: 24 - 48 hours
Subjective/Interval History
-
Date of Service: October 12, 2023
only worked with PT 15 feet
remains quite deconditioned and unable to accurately perform home O2 testing
Objective Data
-
Labs:
Laboratory Results
10/12/23
05:46
WBC 9.4
Hgb 11.1 L
Hct 31.6 L
Plt Count 329
Sodium 134 L
Potassium 3.9
Chloride 97 L
Carbon Dioxide 37 H
BUN 23 H
Creatinine 0.8
Glucose 76
Calcium 8.3 L
Vital Signs:
Vital Signs
Temp Pulse Resp BP Pulse Ox
97.9 F 76 16 143/78 92
10/12/23 07:00 10/12/23 07:54 10/12/23 07:54 10/12/23 07:00 10/12/23 07:54
I&O
10/11/23 10/12/23 10/13/23
06:59 06:59 06:59
Intake Total 1360 / 1360 1790 / 1790
Output Total 2049 1450 / 1450
Balance -690 / -690 340 / 340
Physical Exam
-
General: No Apparent Distress
HEENT: Normocephalic and Atraumatic
Respiratory: Negative Wheezes
Cardiac: Regular Rhythm and S1/S2
GI: Soft
Genito-urinary: No Costovertebral Tender
Neuro: AO x 3
Hematologic / Lymphatic: No Lymphadenopathy
Psych: Calm
Data Reviewed
-
Total Time Spent with Patient (in minutes): 45
Labs: Labs Reviewed by me
[2023-10-12] MEDS: LOVENOX 40 MG SC (17:11)
--- NOTE | 2023-10-12 18:43 | W.PN.PUL3 ---
Today's Communication / Plan
-
O2
CS
Atb
BDs
Assessment
-
Mr Niall Campos is a 63/M adm 10-07 with worsening dyspnea, patient called EMS, found in significant resp distress and expiratory wheezing. In route to [facility], became unresponsive, received 2 DN treatments. At ER, unresponsive, tachypneic/wheezing,
hypertensive, intubated with no issue at ER (PINKY#8). Per emr, seen at ER as well on 10-03 for few d h/o dyspnea and cough (previously seen by PCP and prescribed doxycycline and low dose prednisone without improvement, brought by EMS, responded to
multiple DNs, d/c home with prednisone taper and alb nebs (prescribed nebulizer as well)
AECOPD
Hyponatremia at least since 10-03 ER visit
Troponin negative, normal BNP
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
COPD, per emr on tiotropium, no other details available
Depression
Reported h/o HTN in previous ER encounters
Smoker
ETOH use
Plan/recommendations
At this time, patient appears to be stable.
Recent intubation noted, VDRF
Patient continues to smoke half a pack, has 45+ pack year history of smoking
Also has significant alcohol use, drinks 15 beers every 2 weeks, usually in 1 day, binge drinking. Significant alcohol use in the past
Clinically slowly improving
Continue with current management.
Patient has been transition to 40 mg prednisone since 10-09
Started Symbicort 160/4.52 puffs twice a day
Continue DuoNebs for now, every 6 hours. Will plan to resume outpatient Spiriva at time of discharge
Continue doxycycline 100 mg twice a day. Last dose 10/12/2023
Currently on O2 2L, POx 96%
Walking POx checked today, RA POx 86%, ambulated on 2L, POx 90%, 60 ft
Patient aware of the importance of tobacco cessation
Reviewed CT chest 2021, moderate emphysema. There is a small nodule at the right base, likely subpleural atelectasis
He is due for lung cancer screening. This can be done as an outpatient
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
15 beers every 2 weeks
Follow
GI prophylaxis: Protonix while on steroids
DVT prophylaxis: Continue Lovenox
Strongly recommend follow-up with pulmonary. Information left in chart
Disposition efforts
Diagnostic tests:
CXR 10-08-23: portable, no infiltrates, lordotic, ETT. Old R rib fractures
CXR 10-07-23 c/w and Sept 2022. Emphysematous lung momin, no pulm infiltrates. No change in mild blunting of costodiaphragmatic angles. Old R rib fractures
Subjective Data
-
Date of Service:
Date of Service: October 12, 2023
Chief Complaint: Pulmonary Follow Up
Subjective:
No major events reported
Continues on O2
Resp mckeon improving
Wants to stay inpatient until further improved
Review of Systems
General: Fever (n), Sweats (n), Chills (n) and Satisfactory Appetite
HEENT: Epistaxis (n) and Dysphagia (n)
Cardiopulmonary: Dyspnea on Exertion, Cough and Wheezing
GI: Abdominal Pain (n), Nausea (n) and Vomiting (n)
Neuro: Weakness
Objective Data
Data Reviewed
Vital Signs / I&O / Oxygen:
Vital Signs
Temp Pulse Resp BP Pulse Ox
97.6 F 88 17 101/66 96
10/12/23 15:00 10/12/23 15:35 10/12/23 15:35 10/12/23 15:00 10/12/23 15:35
Intake and Output
10/11/23 10/12/23 10/13/23
06:59 06:59 06:59
Intake Total 1360 / 1360 1790 / 1790 960 / 960
Output Total 2049 1450 / 1450 725 / 725
Balance -690 / -690 340 / 340 235 / 235
SaO2 [A/C] 98
SaO2 [CPAP/PSV] 90
SaO2 [P-A/C] 97
SaO2 96
Nasal Cannula flow liters per 2
minute
Physical Exam
General: Comfortable
HEENT: Normocephalic, Anicteric, Moist Mucous Membranes and Other (Poor dentition)
Cardiovascular: S1-S2, Regular Rhythm, Murmur (n), Rub (n), Peripheral Edema (n) and Calf Tenderness (n)
Respiratory: Wheeze (n), Crackles (n), Rhonchi and Accessory Resp Muscle Use (Mild with conversation)
GI: Soft, Non Distended and Non Tender
Neurology: Awake, Alert and No Motor Deficits (Able to sit up without assistance)
Skin: Jaundice (n), Rash (n) and Bruising (n)
Labs/Micro/Reports
Lab Data
10/12/23 05:46
10/12/23 05:46
Microbiology
10/07/23 13:04 Blood/Venous Blood Culture - Final
No Growth - Final Report
[2023-10-13 03:27] VITALS: BP 119/57
[2023-10-13 07:00] VITALS: BP 136/72
[2023-10-13] MEDS: SYMBICORT 160/4.5 MCG INHALER 2 PUFF INH (07:50)
[2023-10-13] MEDS: DUONEB 3 ML INH ×2 (07:50→11:13)
[2023-10-13] MEDS: DELTASONE 40 MG PO (08:01)
[2023-10-13] MEDS: ZOLOFT 100 MG PO (08:02)
[2023-10-13] MEDS: PROTONIX 40 MG PO (08:02)
[2023-10-13 11:00] VITALS: BP 119/70
--- NOTE | 2023-10-13 11:00 | W.PN.HOSP.TC ---
Today's Communication/Plan
-
dc today if O2 can be arranged, +/- transport help
OP pulm f/u
Assessment / Plan
Assessment / Plan
Assessment:
Vent-dependant acute hypoxic respiratory failure
acute COPD exacerbation
- intubated 10/07 and extubated 10/08
- transitioned to prednisone 40mg. No change today, Eventual prolonged taper at discharge.
- completed Doxycycline course
- standing + prn nebs
- continue Symbicort + Albuterol prn inhaler at home
- OP Follow up with Dr. Walls's office for PFTs, pulm rehab.
Home O2 eval: Patient is in need of oxygen at 2 liters/minute via nasal cannula continuously due to pulse oximetry of 86% on room air at rest. Oxygen will help to improve hypoxemia. Patient is mobile within the home. DuoNeb therapy has been tried
and is ineffective in treating hypoxemia related symptoms. Oxygen is needed to improve symptoms.
Acute hyponatremia
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
- s/p IVF
- monitor Na, will continue OFR. Na levels improving
hx of GERD
- continue PPI BID
Depression on Sertraline
Chronic smoker
- ordered Nicotine patch but patient refusing
Chronic alcohol abuse
- monitor for signs of w/d and DTs
- BCARES following
Underweight status
Drug induced shock in setting of sedation
- require NE gtt for 8 hours now off and stable
Bilateral Elbows Stage I pressure injury, POA
DVT ppx: Lovenox
Code: Full
More than 30 minutes spent in discharge including
Final examination of the patient
Summarizing hospital stay
Instructions for continuing care to all relevant caregivers
Preparation of discharge records, prescriptions, and referral forms
Total time spent (in minutes): 45
Anticipated Discharge: Today
Subjective/Interval History
-
Date of Service: October 13, 2023
ambulating about 20-25 feet which is his full distance of his 1 bedroom apartment
denies any new complaints, understands his SOB is chronic and will take time to improve with rehab
Objective Data
-
Vital Signs:
Vital Signs
Temp Pulse Resp BP Pulse Ox
97.5 F 78 17 136/72 94
10/13/23 07:00 10/13/23 07:56 10/13/23 07:56 10/13/23 07:00 10/13/23 08:15
I&O
10/12/23 10/13/23 10/14/23
06:59 06:59 06:59
Intake Total 1790 / 1790 1440 / 1440
Output Total 1450 / 1450 1475 / 1475
Balance 340 / 340 -35 / -35
Physical Exam
-
General: No Apparent Distress
HEENT: Normocephalic and Atraumatic
Respiratory: Negative Wheezes
Cardiac: Regular Rhythm and S1/S2
GI: Soft
Genito-urinary: No Costovertebral Tender
Musculoskeletal: No Edema
Neuro: AO x 3
Psych: Calm
Data Reviewed
-
Total Time Spent with Patient (in minutes): 45
Labs: Labs Reviewed by me
--- NOTE | 2023-10-13 12:40 | CM ---
Addendum entered by Bess Colon 10/13/23 16:32:
Transport - Ly[employer] ride arraigned
Addendum entered by Bess Colon 10/13/23 14:45:
[facility] accepted pt for Home health needs
Plan - home with home health
Fax - [phone]
Addendum entered by Bess Colon 10/13/23 14:30:
Approved for oxygen
Company to deliver to pt today by 3PM
Original Note:
Chart reviewed. Spoke with pt
PT recommending home care - no preference per pt
Needs home O2
Referred to [facility] for home needs
Spoke with [facility] [phone]
Faxed clinicals and Rx for home O2 needs [phone]
--- NOTE | 2023-10-13 14:31 | W.DS.TRANS ---
DC Summary - Hand Quilter
-
Discharge Instructions:
Discharge Diagnosis/Procedures COPD exacerbation requiring intubation
Diet Regular
Activity As tolerated,No strenuous activity
Bathing Restrictions None
Other Services VN,PT,OT
Instructions:
Stand-Alone Forms:
Changes to Home Medications: No
Discharge Medications:
DC Medications w/original date entered in [employer]
sertraline 100 mg tablet 100 mg PO DAILY Mental Health/Anxiety 10/03/23
budesonide-formoterol HFA 160 mcg-4.5 mcg/actuation aerosol inhaler (Symbicort) 2 puff inhalation R BID #10.2 grams 10/13/23
ipratropium 0.5 mg-albuterol 3 mg (2.5 mg base)/3 mL nebulization soln 3 ml inhalation R Q4HPRN PRN SOB, COUGH, WHEEZE #90 mL 10/13/23
pantoprazole 40 mg tablet,delayed release 40 mg PO BID Gastrointestinal Issue #60 tabs 10/13/23
prednisone 10 mg tablet See Rx Instructions .Route .COMPLEX #40 tabs 10/13/23
tiotropium bromide 1.25 mcg/actuation mist for inhalation (Spiriva Respimat) 2 puff inhalation DAILY Lung/Breathing Issues #4 grams 10/13/23
Home Medication Changes
Pending Results: No
Total time spent discharging patient (in min): 45
--- NOTE | 2023-10-13 15:16 | W.PN.PUL3 ---
Today's Communication / Plan
-
Dispo
Assessment
-
Mr Niall Campos is a 63/M adm 10-07 with worsening dyspnea, patient called EMS, found in significant resp distress and expiratory wheezing. In route to [facility], became unresponsive, received 2 DN treatments. At ER, unresponsive, tachypneic/wheezing,
hypertensive, intubated with no issue at ER (PINKY#8). Per emr, seen at ER as well on 10-03 for few d h/o dyspnea and cough (previously seen by PCP and prescribed doxycycline and low dose prednisone without improvement, brought by EMS, responded to
multiple DNs, d/c home with prednisone taper and alb nebs (prescribed nebulizer as well)
AECOPD
Hyponatremia at least since 10-03 ER visit
Troponin negative, normal BNP
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
COPD, per emr on tiotropium, no other details available
Depression
Reported h/o HTN in previous ER encounters
Smoker
ETOH use
Plan/recommendations
At this time, patient appears to be stable.
Recent intubation noted, VDRF
Patient continues to smoke half a pack, has 45+ pack year history of smoking
Also has significant alcohol use, drinks 15 beers every 2 weeks, usually in 1 day, binge drinking. Significant alcohol use in the past
Clinically slowly improving
Continue with current management.
Patient has been transition to 40 mg prednisone since 10-09, taper by 10 mg q2d to off
Started Symbicort 160/4.52 puffs twice a day
Continue DuoNebs for now, every 6 hours. Resume outpatient Spiriva at time of discharge
Doxycycline 100 mg twice a day, last dose 10/12/2023
Currently on O2 2L, POx 96%
Walking POx checked today, RA POx 86%, ambulated on 2L, POx 90%, 60 ft
Patient aware of the importance of tobacco cessation
Reviewed CT chest 2021, moderate emphysema. There is a small nodule at the right base, likely subpleural atelectasis
He is due for lung cancer screening. This can be done as an outpatient
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
15 beers every 2 weeks
Follow
GI prophylaxis: Protonix while on steroids
DVT prophylaxis: Continue Lovenox
Strongly recommend follow-up with pulmonary. Information left in chart
Disposition efforts
Ready for d/c
Reconsult prn
Diagnostic tests:
CXR 10-08-23: portable, no infiltrates, lordotic, ETT. Old R rib fractures
CXR 10-07-23 c/w and May 2023. Emphysematous lung momin, no pulm infiltrates. No change in mild blunting of costodiaphragmatic angles. Old R rib fractures
Subjective Data
-
Date of Service:
Date of Service: October 13, 2023
Chief Complaint: Pulmonary Follow Up
Subjective:
No major events reported
Feels much better
Expresses commitment to smoking cessation
Review of Systems
General: Fever (n), Sweats (n), Chills (n) and Satisfactory Appetite
HEENT: Epistaxis (n) and Dysphagia (n)
Cardiopulmonary: Dyspnea, Dyspnea on Exertion, Cough, Wheezing and Hemoptysis (n)
GI: Abdominal Pain (n), Nausea (n) and Vomiting (n)
Neuro: Weakness
Objective Data
Data Reviewed
Vital Signs / I&O / Oxygen:
Vital Signs
Temp Pulse Resp BP Pulse Ox
98.0 F 81 16 119/70 94
10/13/23 11:00 10/13/23 11:14 10/13/23 11:14 10/13/23 11:00 10/13/23 11:14
Intake and Output
10/12/23 10/13/23 10/14/23
06:59 06:59 06:59
Intake Total 1790 / 1790 1440 / 1440
Output Total 1450 / 1450 1475 / 1475
Balance 340 / 340 -35 / -35
SaO2 [A/C] 98
SaO2 [CPAP/PSV] 90
SaO2 [P-A/C] 97
SaO2 94
Nasal Cannula flow liters per 3
minute
Physical Exam
General: Comfortable
HEENT: Normocephalic, Anicteric, Moist Mucous Membranes and Other (Poor dentition)
Cardiovascular: S1-S2, Regular Rhythm, Murmur (n), Rub (n), Peripheral Edema (n) and Calf Tenderness (n)
Respiratory: Wheeze (n), Crackles (n), Rhonchi, Accessory Resp Muscle Use (Mild with conversation) and Stridor (n)
GI: Soft, Non Distended, Non Tender and Normal Bowel Sounds
Neurology: Awake, AO x 3 and No Motor Deficits (Able to sit up without assistance)
Skin: Jaundice (n), Rash (n) and Bruising (n)
Labs/Micro/Reports
Lab Data
10/12/23 05:46
10/12/23 05:46
Microbiology
10/07/23 13:04 Blood/Venous Blood Culture - Final
No Growth - Final Report
== END 2023-10-13 15:26 | disposition home health service (06) | DRG 208 ==
LOC: 3 WEST ACU 15:00
PROVIDERS: Internal Medicine Critical Care Medicine; Nurse Practitioner Primary Care; ADMITTING PHYSICIAN Internal Medicine; CONSULT PHYSICIAN Internal Medicine Pulmonary Disease; EMERGENCY PHYSICIAN Emergency Medicine; FAMILY PHYSICIAN Nurse Practitioner
PROC: 5A1935Z Respiratory Ventilation, Less than 24 Consecutive Hours (ICD-10-PCS; 2023-10-07)
PROC: 0BH17EZ Insertion of Endotracheal Airway into Trachea, Via Natural or Artificial Opening (ICD-10-PCS; 2023-10-07)
DX: J96.01 Acute respiratory failure with hypoxia (principal); E87.29 Other acidosis; E22.2 Syndrome of inappropriate secretion of antidiuretic hormone; Z68.1 Body mass index [BMI] 19.9 or less, adult; R57.9 Shock, unspecified; J98.11 Atelectasis; J43.9 Emphysema, unspecified; J96.02 Acute respiratory failure with hypercapnia; K21.9 Gastro-esophageal reflux disease without esophagitis; F10.10 Alcohol abuse, uncomplicated; F17.200 Nicotine dependence, unspecified, uncomplicated; I10 Essential (primary) hypertension; F32.A Depression, unspecified; R63.6 Underweight; L89.021 Pressure ulcer of left elbow, stage 1; L89.011 Pressure ulcer of right elbow, stage 1; F17.210 Nicotine dependence, cigarettes, uncomplicated
CPT/HCPCS: 31500; 36600; 71045; 80048; 80053; 80306; 81003; 81015; 82330; 82533; 82805; 83605; 83735; 83880; 83930; 83935; 84132; 84300; 84302; 84439; 84443; 84478; 84484; 85025; 85027; 87040; 87070; 87086; 87205; 93005; 94002; 94003; 94640; 96361; 96374; 96375; 96376; 97110; 97162; 97165; 99291

== ENCOUNTER → 2024-01-03 | Outpatient (REF) | payer OTHER, SELFPAY | LOC: DHSLP | PROVIDERS: ATTENDING PHYSICIAN Internal Medicine Critical Care Medicine; FAMILY PHYSICIAN Nurse Practitioner | DX: G47.30 Sleep apnea, unspecified (principal); R06.83 Snoring; R09.02 Hypoxemia | CPT/HCPCS: 95810 ==

== ENCOUNTER 2024-03-16 21:47 | Emergency (ER) | payer OTHER, SELFPAY ==
[2024-03-16 22:00] VITALS: BP 156/74
[2024-03-16 22:05] VITALS: BMI 20.3
[2024-03-16] MEDS: DUONEB 3 ML INH (22:09)
[2024-03-16 22:21] LABS: % Basophils 0.9 % (0-2); % Eosinophils 2.8 % (0-6); % Immature Granulocytes 0.4 % (0-0.5); % Lymphocytes 27.7 % (20.5-51.1); % Monocytes 7.6 % (1.7-9.3); % Neutrophils 60.6 % (42.2-75.2); Absolute Basophils 0.1 10^3/uL (0-0.2); Absolute Eosinophils 0.3 10^3/uL (0-0.7); Absolute Lymphocytes 2.6 10^3/uL (1.2-3.4); Absolute Monocytes 0.7 10^3/uL (0.1-0.6); Absolute Neutrophils 5.7 10^3/uL (1.4-6.5); Hematocrit 37.9 % (39.0-52.0); Mean Corp Hgb Conc. 34.3 g/dL (33.0-37.0); Mean Corpuscular Hgb 30.4 pg (27.0-31.0); Mean Corpuscular Volume 88.8 fL (80.0-94.0); Mean Platelet Volume 8.7 fL (7.4-10.4); Nucleated Red Blood Cells % 0 % (-); Platelet Count 289 10^3/uL (130-400); Red Blood Cell Count 4.27 10^6/uL (4.70-6.10); Red Cell Dist. Width 13.3 % (11.5-14.5); White Blood Cell Count 9.4 10^3/uL (4.8-10.8)
[2024-03-16 22:33] LABS: ALT (SGPT) 16 U/L (0-50); AST (SGOT) 35 U/L (17-59); Albumin 4.6 g/dl (3.5-5.0); Alcohol 177 mg/dl; Alkaline Phosphatase 80 U/L (38-126); Blood Urea Nitrogen 17 mg/dl (9-20); Calcium 8.9 mg/dl (8.4-10.2); Carbon Dioxide 29 mmol/L (22-30); Chloride 102 mmol/L (98-107); Estimated Creatinine Clearance 91 ml/min; Glucose 71 mg/dl (70-99); Sodium 141 mmol/L (135-145); Total Bilirubin 0.4 mg/dl (0.2-1.3); Total Protein 6.7 g/dl (6.3-8.2); eGFR > 60.00
[2024-03-16 22:40] LABS: Troponin I < 0.012 ng/ml
[2024-03-16 23:00] VITALS: BP 135/69
[2024-03-16 23:33] VITALS: BP 145/73
--- NOTE | 2024-03-16 23:34 | ED.GENMED ---
History of Present Illness
General
Chief Complaint: Breathing Problem
Source: patient and ambulance crew
Exam Limitations: none
Time Seen by Provider: 03/16/24 23:33
Nursing documentation reviewed up to this point in time: agreed with
History of Present Illness
History of Present Illness:
63-year-old male presents with shortness of breath. He has a history of COPD. He is a current smoker. He has been having shortness of breath all day today. He states he ran out of his albuterol inhaler 2 days ago. He states that he is an
alcoholic. He denies drinking alcohol tonight. Patient states that he had a brief episode of chest pain earlier tonight. EMS gave him aspirin. He states that the pain resolved. Patient states that despite his shortness of breath he still was
able to smoke
Vital signs are stable. Patient not hypoxic
Nursing note reviewed. I agree with nursing documentation up to this point in time.
Home Meds and allergies reviewed.
NUMBER AND COMPLEXITY OF PROBLEMS ADDRESSED AT THE ENCOUNTER
� Chronic conditions affecting care: Tobacco smoker, alcoholic, COPD
� Acute Exacerbation and/or Progression of Chronic Illness:
� Differential Diagnosis includes: COPD exacerbation, bronchitis
AMOUNT AND/OR COMPLEXITY OF DATA TO BE REVIEWED AND ANALYZED
I performed an independent evaluation of the following and my interpretation is:
EKG: EKG shows sinus rhythm rate of 90 with normal intervals, indeterminate axis. QRS duration is 86 ms at upper evidence of normal. Corrected QT is 452 ms no evidence of acute ischemia present. This is a normal EKG. When
compared with previous EKG dated October 07, 2023, ST is no longer depressed in the anterior and inferior leads
CT:
X-rays: Chest x-ray today appears similar to previous chest x-ray in September
Ultrasound:
Laboratory Studies: Troponin negative
9.4 white blood cell count
Other:
Review of other/old records:
Clinical information was obtained by an independent historian:
Prescriptions/Medications Considered but not given:
Further testing considered but not performed:
RISK OF COMPLICATIONS AND/OR MORBIDITY OR MORTALITY OF PATIENT MANAGEMENT
Social determinants of health affecting care: Good Social Support
Discussion with other providers:
Escalation of care including admission/observation vs risk of discharge considered:
CRITICAL CARE NOTE:
Total Time (exclusive of procedures):
Update:
Past History
Past History
ED Past Medical History: COPD (emphysema), GERD and Other (alcohol abuse)
ED Past Surgical History: None
Social History
Tobacco: Smoker
Alcohol: Chronic alcoholic
Drug: None
Personal: Single
Living: alone
Family History
Family History: CAD ([place])
Phy Exam
General Physical Exam
General Presentation: mild distress
General age: appears older than age
General Skin: warm and dry
General Habitus: debilitated and frail
General Mental: anxious
General Hydration: appears well hydrated
ENT Exam
ENT Exam: EOMI, pharynx normal, neck supple and normocephalic
Eye Exam
Eye Exam: PERRL, cornea clear and conjunctiva normal
Cardiovascular Exam
Cardiovascular Exam: regular rate/rhythm and no edema
Pulmonary Exam
Pulmonary Exam: generalized wheezing
Gastrointestinal Exam
Gastrointestinal Exam: normal bowel sounds, non tender, soft, no organomegaly, no pulsatile mass and non distended
Neurological Exam
Neurological Exam: alert, oriented x3, no motor deficits and speech normal
Musculoskeletal Exam
Musculoskeletal Exam: full ROM and no edema
Skin Exam
Skin Exam: normal color, warm/dry, no rash and no petechia
Psychiatric Exam
Psychiatric Exam: normal mood/affect
Scores
Heart Failure Risk
Heart Failure Risk Score: Not Applicable
Course
Orders/Labs/Results
Orders:
Orders
03/16/24 22:00
Chest [CR Chest - 2 Views ] Urgent
Comment:
Reason For Exam: cough, SOB
03/16/24 22:01
EKG [Electrocardiogram (*1)] Urgent
Reason for Study: Chest Pain
EKG- Treatment ONCE
03/16/24 22:06
Alcohol Urgent
CBC/With Diff [Complete Blood Count/With Diff] Urgent
CMP [Comprehensive Metabolic Panel] Urgent
Troponin I Urgent
03/16/24 22:07
Ipratropium/Albuterol Sulfate [Duoneb] 3 ml .ROUTE .STK-MED ONE
03/16/24 22:08
Ipratropium/Albuterol Sulfate [Duoneb] 3 ml INH R NOW ONE
03/16/24 23:41
Albuterol Sulfate [Ventolin Nebules] 10 mg INH R NOW STA
Dexamethasone Sod Phosphate [Decadron] 10 mg IV NOW STA
Abnormal Lab Results
03/16/24
22:06
RBC 4.27 L 10^6/uL
(4.70-6.10)
Hct 37.9 L %
(39.0-52.0)
Absolute Monos (auto) 0.7 H 10^3/uL
(0.1-0.6)
03/16/24 22:06
03/16/24 22:06
Vital Signs
Initial and Last Documented VS:
Initial Vital Signs
Temp Pulse Resp BP Pulse Ox
98.2 F 93 18 156/74 92
03/16/24 22:00 03/16/24 22:00 03/16/24 22:00 03/16/24 22:00 03/16/24 22:00
Last Documented Vital Signs
Temp Pulse Resp BP Pulse Ox
98.2 F 88 29 156/70 93
03/16/24 22:00 03/17/24 02:15 03/17/24 02:15 03/17/24 02:00 03/17/24 02:15
*Critical Care Note
Total Time (30-74mins, 75-104mins- exclusive of procedures): Not Applicable
ED Attending Note
-
Portions of this chart may have been created with voice recognition software.� Occasional wrong word or��sound alike� substitutions may have occurred due to the inherent limitations of voice recognition software.
Discharge Plan
Departure
Patient Disposition: Home (Routine Discharge)
Date of Disposition: 03/17/24
Time of Disposition: 01:43
Patient with high blood pressure during this ER visit?: Yes
Condition: Fair
Discharge Problem:
COPD exacerbation, Smoker, Alcohol abuse
Instructions: Exacerbation of COPD (DC), BLOOD PRESSURE
Prescriptions:
New
albuterol sulfate [Proventil HFA] 90 mcg/actuation HFA aerosol inhaler
2 puff inhalation Q6H PRN (Reason: shortness of breath or wheezing) Qty: 8.5 0RF
No Action
sertraline 100 mg Tablet
100 mg PO DAILY
ipratropium-albuterol 0.5 mg-3 mg(2.5 mg base)/3 mL Solution For Nebulization
3 ml inhalation R Q4HPRN PRN (Reason: SOB, COUGH, WHEEZE) Qty: 90 2RF
budesonide-formoterol [Symbicort] 160-4.5 mcg/actuation Hfa Aerosol Inhaler
2 puff inhalation R BID Qty: 10.2 2RF
prednisone 10 mg Tablet
See Rx Instructions .ROUTE .COMPLEX Qty: 40 0RF
Rx Instructions:
take 40mg x 4 days, then 30mg x 4 days, then 20mg x 4 days, then 10mg x 4 days
Spiriva Respimat 1.25 mcg/actuation Mist
2 puff INHALATION DAILY Qty: 4 2RF
pantoprazole 40 mg Tablet,Delayed Release (Dr/Ec)
40 mg PO BID Qty: 60 1RF
albuterol sulfate 90 mcg/actuation HFA aerosol inhaler
2 puff inhalation Q6H PRN (Reason: shortness of breath or wheezing) Qty: 8.5 2RF
Referrals:
Elizabeth Deras CRNP [Family Provider] -
Activity Restrictions/Additional Instructions:
It was a pleasure meeting you and taking part in your care. We hope for your continued healing and wellness.
Please read discharge instructions in their entirety. However, they are for general education and may not describe your exact diagnosis at discharge. Information on your ER visit and medical conditions were discussed with you along with appropriate
follow up information...
If indicated, please take your medications as instructed and indicated on discharge paperwork.
Please schedule a follow up appointment as directed. Call to schedule an appointment
Please return to the emergency department with ANY change in, persisting, or worsening of symptoms. If any of your symptoms do not improve, or persist, or become more severe within 6-12 hours, please return to the emergency department for further
care.
Please return to the emergency department if you develop a headache, neck pain/stiffness, fever greater than 100.4F, chest pain, shortness of breath, persistent nausea, vomiting, slurred speech, difficulty walking, numbness/tingling, weakness, signs
of infection or any other symptoms that are worrisome to you.
If you have any questions or concerns please do not hesitate to call the Hospital at
Interventions
Interventions:
*Risk Screen - Suicide Last Done: 03/16/24 22:00
*General Assessment Last Done: 03/16/24 22:00
*Neglect/Abuse Screening Last Done: 03/16/24 22:00
ED- Fall Risk Assessment Last Done: 03/16/24 22:52
*Nursing Disposition Last Done: 03/17/24 02:33
ED- Cardiac Assessment Last Done: 03/16/24 22:52
ED- Pulmonary Assessment Last Done: 03/16/24 22:52
Discharge Date and Time
Discharge Date/Time: 03/17/24 02:34
Print Language: CHINESE
[2024-03-16] MEDS: VENTOLIN NEBULES 10 MG INH (23:56)
[2024-03-16] MEDS: DECADRON 10 MG IV (23:56)
[2024-03-17] VITALS: BP 132/74
[2024-03-17 01:00] VITALS: BP 156/68
[2024-03-17 02:00] VITALS: BP 156/70
== END 2024-03-17 02:34 | disposition home or self-care (01) ==
LOC: EMR 21:47
PROVIDERS: Student in an Organized Health Care Education/Training Program; EMERGENCY PHYSICIAN Student in an Organized Health Care Education/Training Program; FAMILY PHYSICIAN Nurse Practitioner
DX: J44.1 Chronic obstructive pulmonary disease with (acute) exacerbation (principal); F17.200 Nicotine dependence, unspecified, uncomplicated; F10.10 Alcohol abuse, uncomplicated; R03.0 Elevated blood-pressure reading, without diagnosis of hypertension
CPT/HCPCS: 99285; 96374; 94640; 71046; 80053; 82077; 84484; 85025; 93005

== ENCOUNTER → 2024-10-02 11:31 | Outpatient (REF) | payer OTHER, SELFPAY | LOC: RAD 11:31 | PROVIDERS: ATTENDING PHYSICIAN Nurse Practitioner | DX: Z87.891 Personal history of nicotine dependence (principal) | CPT/HCPCS: 71271 ==

== ENCOUNTER → 2024-12-14 13:12 | Outpatient (REF) | payer OTHER, SELFPAY | LOC: REG 13:12 | PROVIDERS: ATTENDING PHYSICIAN Nurse Practitioner | DX: R09.89 Other specified symptoms and signs involving the circulatory and respiratory systems (principal) | CPT/HCPCS: 71046 ==

== ENCOUNTER 2025-07-24 18:32 | Inpatient (IN) | payer OTHER, SELFPAY ==
[2025-07-24] VITALS (7 sets, daily range): BP systolic 94–163; BP diastolic 70–81; BMI 14.7; BMI 15.2
[2025-07-24] MEDS: DUONEB 9 ML INH (15:40)
[2025-07-24] MEDS: SOLU-MEDROL PF 125 MG IV (15:40)
--- NOTE | 2025-07-24 15:48 | ED.GENMED ---
History of Present Illness
General
Chief Complaint: Breathing Problem
Time Seen by Provider: 07/24/25 15:09
History of Present Illness
History of Present Illness:
64-year-old male with history of COPD presenting to the emergency department for shortness of breath. Patient reports symptoms for the past few days. However this morning, started to have some chest pressure which concerned him. He denies any
known cardiac history. Reports chronic cough and congestion which has not changed. He tried his Spiriva prior to arrival without significant improvement. Denies any fever. Denies additional acute medical complaints.
Past History
Past History
ED Past Medical History: COPD (emphysema), GERD and Other (alcohol abuse)
ED Past Surgical History: None
Social History
Tobacco: Smoker
Alcohol: Chronic alcoholic
Drug: None
Personal: Single
Living: alone
Family History
Family History: CAD ([place])
Phy Exam
Physical Exam
Physical Exam:
General: Well-appearing, no clinical signs of dehydration, nontoxic and in no acute distress
HEENT: protecting airway
Neck: appears supple
CV: Normal heart rate, regular rhythm
Resp: Mild tachypnea with diminished air movement bilaterally with end expiratory wheezing. Conversational dyspnea
Abd: No distention
Extremities: No deformities, no swelling
Neuro: alert, no focal neurologic deficit
: deferred
Rectal: deferred
Psych: Normal affect
Skin: Intact
Scores
Heart Failure Risk
Heart Failure Risk Score: Not Applicable
Course
Orders/Labs/Results
Orders:
Orders
07/24/25 15:30
Electrocardiogram (*1) Stat
Reason for Study: Other
Other Reason for Exam: chest pain
EKG- Treatment ONCE
Ipratropium/Albuterol Sulfate [Duoneb] 9 ml INH R NOW ONE
MethylPREDNISolone PF [Solu-Medrol Pf] 125 mg IV NOW STA
CR Chest - 2 Views Urgent
Comment:
Reason For Exam: COPD, cough
07/24/25 15:50
Complete Blood Count/With Diff Urgent
Comprehensive Metabolic Panel Urgent
NT-proBNP Urgent
Troponin I Urgent
07/24/25 16:15
Lorazepam [Ativan] 0.5 mg PO NOW STA
07/24/25 17:02
COVID-19 Antigen Urgent
Source: Nasal Swab
Influenza A+B Rapid Molecular Urgent
DONOVAN Source: Nasal Swab
Specimen Description:
Abnormal Lab Results
07/24/25
15:50
RBC 4.31 L 10^6/uL
(4.70-6.10)
Monocytes % 10.7 H %
(1.7-9.3)
Eosinophils % 9.0 H %
(0-6)
Carbon Dioxide 36 H mmol/L
(22-30)
Glucose 102 H mg/dl
(70-99)
07/24/25 15:50
07/24/25 15:50
Vital Signs
Initial and Last Documented VS:
Initial Vital Signs
Temp Pulse Resp BP Pulse Ox
97.7 F 96 20 128/71 95
07/24/25 14:48 07/24/25 14:48 07/24/25 14:48 07/24/25 14:48 07/24/25 14:48
Last Documented Vital Signs
Temp Pulse Resp BP Pulse Ox
97.7 F 96 20 128/71 95
07/24/25 14:48 07/24/25 14:48 07/24/25 14:48 07/24/25 14:48 07/24/25 15:54
MDM/Problems Addressed
MDM/Problems Addressed:
64-year-old male with history of COPD and tobacco abuse presenting for shortness of breath. Vital signs are normal.
On exam, patient is in no acute distress, however mild increased work of breathing with diminished airflow bilaterally and expiratory wheezing. Symptoms appear most consistent with acute COPD exacerbation. Patient afebrile, denies any changes in
his with lower suspicion for pneumonia. No signs of volume overload with lower suspicion for CHF. Patient does note some chest discomfort, so will EKG, however ultimately suspect from patient's breathing and coughing. Will treat with DuoNebs and
steroids and reassess for improvement
17:15 -patient's chest x-ray without obvious infiltrate. Labs relatively unremarkable. On reassessment, patient is still dyspneic with minimal air movement. For this reason feel patient warrants admission, notes that he with very minimal
exertion, does not feel comfortable going home. Will admit for continued respiratory monitoring and management of COPD exacerbation
*Pulse Oximetry
SaO2: 95
Oxygen Mode of Delivery: Room air
Patient hypoxic: no
*Critical Care Note
Total Time (30-74mins, 75-104mins- exclusive of procedures): Not Applicable
ED Attending Note
-
Portions of this chart may have been created with voice recognition software.� Occasional wrong word or��sound alike� substitutions may have occurred due to the inherent limitations of voice recognition software.
Discharge Plan
Departure
Patient Disposition: Admit
Date of Disposition: 07/24/25
Time of Disposition: 17:17
Presentation/result/management discussed w/ accepting MD/DO: Hospitalist
Patient with high blood pressure during this ER visit?: No
Condition: Fair
Discharge Problem:
COPD exacerbation
Prescriptions:
No Action
sertraline 100 mg Tablet
100 mg PO DAILY
ipratropium-albuterol 0.5 mg-3 mg(2.5 mg base)/3 mL Solution For Nebulization
3 ml inhalation R Q4HPRN PRN (Reason: SOB, COUGH, WHEEZE) Qty: 90 2RF
budesonide-formoterol [Symbicort] 160-4.5 mcg/actuation Hfa Aerosol Inhaler
2 puff inhalation R BID Qty: 10.2 2RF
prednisone 10 mg Tablet
See Rx Instructions .ROUTE .COMPLEX Qty: 40 0RF
Rx Instructions:
take 40mg x 4 days, then 30mg x 4 days, then 20mg x 4 days, then 10mg x 4 days
Spiriva Respimat 1.25 mcg/actuation Mist
2 puff INHALATION DAILY Qty: 4 2RF
pantoprazole 40 mg Tablet,Delayed Release (Dr/Ec)
40 mg PO BID Qty: 60 1RF
albuterol sulfate 90 mcg/actuation HFA aerosol inhaler
2 puff inhalation Q6H PRN (Reason: shortness of breath or wheezing) Qty: 8.5 2RF
albuterol sulfate [Proventil HFA] 90 mcg/actuation HFA aerosol inhaler
2 puff inhalation Q6H PRN (Reason: shortness of breath or wheezing) Qty: 8.5 0RF
Referrals:
Elizabeth Deras CRNP [Family Provider, Family Practice]
Discharge Date and Time
Print Language: CYMRO
[2025-07-24 15:59] LABS: Hematocrit 39.0 % (39.0-52.0); Hemoglobin 13.1 g/dL (13.0-18.0); Mean Corp Hgb Conc. 33.6 g/dL (33.0-37.0); Mean Corpuscular Volume 90.5 fL (80.0-94.0); Nucleated Red Blood Cells % 0 % (-); Platelet Count 252 10^3/uL (130-400); Red Cell Dist. Width 11.9 % (11.5-14.5)
[2025-07-24 16:22] LABS: ALT (SGPT) 19 U/L (0-50); AST (SGOT) 23 U/L (17-59); Albumin 4.0 g/dl (3.5-5.0); Alkaline Phosphatase 59 U/L (38-126); Blood Urea Nitrogen 18 mg/dl (9-20); Calcium 8.8 mg/dl (8.4-10.2); Carbon Dioxide 36 mmol/L (22-30); Chloride 98 mmol/L (98-107); Estimated Creatinine Clearance 74 ml/min; Glucose 102 mg/dl (70-99); Potassium 4.1 mmol/L (3.5-5.1); Sodium 136 mmol/L (135-145); Total Protein 6.4 g/dl (6.3-8.2); Troponin I < 0.012 ng/ml; eGFR > 60.00
[2025-07-24] MEDS: ATIVAN 0.5 MG PO (16:26)
--- NOTE | 2025-07-24 17:20 | HPS.HSE ---
Addendum entered and electronically signed by Ant Oquendo MD 07/24/25 19:18:
This is an addendum to the H&P written by Kelley Maki on 07/24/2025. �Patient seen and examined independently with PA.
64-year-old male past medical history of COPD, hyponatremia secondary to SIADH, GERD, depression, chronic smoker, chronic alcohol use disorder, presenting with shortness of breath and chest pressure. �Chronic cough at baseline. �No fevers or chills.
Labs unremarkable.
Chest x-ray shows hyperinflated lungs without any acute process, report pending.
On examination initially with end expiratory wheezing.
Patient with acute COPD exacerbation. �DuoNebs, dexamethasone. �Flu and COVID pending.
Original Note:
Family Physician
-
Family Physician: Elizabeth Deras
Chief Complaint
-
Cough and Shortness of Breath
History of Present Illness
Patient is a 64 y/o male past medical history of COPD, GERD and Anxiety/Depression who presents with cough and shortness of breath. Patient reports hsi breathing his been getting worse since the springtime but he has been having difficulty getting
to his doctor's appointments. He reports more recently he has developed a cough which he reports is productive of clear mucus. He has been using his home inhalers without much improvement in his symptoms. He notes using his nebulizer helps
sometimes. He denies fevers, sweats or chills.
Medical History
Past Medical History
Past Medical History: Reports Other
Additional Past Medical History:
COPD
Alcohol Use Disorder
Anxiety/Depression
GERD
Past Surgical History: Reports None
Social History
Tobacco: Smoker
Alcohol: Former
Drug: None
Personal: Single
Living: Alone
Family History
Family History: Not pertinent
Allergies / Home Medications
Allergies reflects when Allergies were last updated in [facility].
Home Medications with original date entered in [facility]
Allergy/Medication List:
Allergies
Allergy/AdvReac Type Severity Reaction Status Date / Time
No Known Allergies Allergy Verified 07/24/25 14:50
Home Medications
sertraline 100 mg tablet 100 mg PO DAILY Mental Health/Anxiety 10/03/23
budesonide-formoterol HFA 160 mcg-4.5 mcg/actuation aerosol inhaler (Symbicort) 2 puff inhalation R BID #10.2 grams 10/13/23
ipratropium 0.5 mg-albuterol 3 mg (2.5 mg base)/3 mL nebulization soln 3 ml inhalation R Q4HPRN PRN SOB, COUGH, WHEEZE #90 mL 10/13/23
albuterol sulfate 90 mcg/actuation aerosol inhaler 2 puff inhalation R Q6HPRN PRN shortness of breath or wheezing 07/24/25
diphenhydramine HCl 25 mg tablet 25 mg PO DAILYPRN PRN anxiety 07/24/25
hydroxyzine HCl 25 mg tablet 25 mg PO DAILYPRN PRN anxiety 07/24/25
naproxen sodium 220 mg tablet (Aleve) 440 mg PO DAILYPRN PRN mild pain 07/24/25
tiotropium bromide 1.25 mcg/actuation mist for inhalation (Spiriva Respimat) 2 puff inhalation R QPM Lung/Breathing Issues 07/24/25
Review of Systems
-
History Source: Patient
A 12 point ROS was completed and negative except as noted: Yes
Constitutional: Denies Fever or Chills
Respiratory: Reports Cough and Trouble Breathing
Cardiac: Denies Palpitations
Abdomen/GI: Denies Abdominal Pain, Nausea, Vomiting, Diarrhea or Constipated
Physical Exam
Vital Signs
Vital Signs
Temp Pulse Resp BP Pulse Ox
97.7 F 96 20 128/71 95
07/24/25 14:48 07/24/25 14:48 07/24/25 14:48 07/24/25 14:48 07/24/25 15:54
Physical Exam
General: Comfortable, Conversant and Other (Frequent cough noted)
HEENT: Anicteric and Moist mucous membranes
Respiratory: Non Labored Respirations and Other (Decreased breath sounds throughout with very late expiratory wheeze)
Cardiac: S1/S2, Regular Rhythm and Tachycardia
GI: Soft and Non Tender
Rectal: Deferred by Provider
Musculoskeletal: No Clubbing, No Cyanosis and No Edema
Skin: Warm and Dry
Neuro: Awake, Alert, Oriented and Nonfocal/grossly intact
Psych: Calm
Laboratory Results
-
07/24/25 15:50
07/24/25 15:50
Laboratory Results
Total Bilirubin 0.3 mg/dl (0.2-1.3) 07/24/25 15:50
AST 23 U/L (17-59) 07/24/25 15:50
ALT 19 U/L (0-50) 07/24/25 15:50
Alkaline Phosphatase 59 U/L (38-126) 07/24/25 15:50
Troponin I < 0.012 ng/ml 07/24/25 15:50
Data Reviewed
-
Diagnostic Radiology: Image Personally Visualized and interpreted (CXR: Hyperinflated lungs without acute process)
Lab Data: Labs Reviewed by me
Impression/Plan
-
Acute COPD Exacerbation
-Consult Pulmonary
-Continue DuoNeb QID and PRN
-Continue Decadron 4mg q12H
-Continue Mucinex
-Transition Symbicort to Pulmicort Neb during hospitalization
Anxiety / Depression
-Continue sertraline and hydroxyzine PRN
Nicotine Dependence / Tobacco Use Disorder
-Encourage smoking cessation
-Continue Nicotine Patch
DVT proph: Lovenox
Code Status: Full Code
[2025-07-24 17:32] LABS: COVID-19 Antigen Negative (Negative)
--- NOTE | 2025-07-24 18:10 | EDCM ---
Reviewed chart and met with pt bedside in ED. Pt lives alone in first floor apartment, no JANINE.
He is independent in personal care, states he needs assistance with ADLs, has a neighbor who goes to the food store for him but he does not assist with anything else. Pt's brother no longer lives in [place], he moved to the [facility]. No other
family to assist.
Pt states he sleeps a lot and rarely leaves his apartment. He feels weak and dizzy and is afraid of walking. He does have a walker that someone gave him. Has tried food delivery service in the past but needs to find one that accepts food stamps.
He told me the police lieutenant who came to the house today when he called 911 was making a referral to the [facility], he also has the number to call and follow up.
He no longer has home O2, he told me he only had it for a few weeks in the past.
Hx [facility] per prior CM notes. Pt states they did not visit for long. No hx SNF.
PCP: Elizabeth Deras
Pharmacy: [facility] or [facility]
Discharge planning pending ongoing medical evaluation, CM will continue to follow for all discharge planning needs.
[2025-07-24] MEDS: PULMICORT 0.5 MG INH (19:45)
[2025-07-24] MEDS: DUONEB 3 ML INH (19:45)
[2025-07-24] MEDS: DECADRON 4 MG IV (21:18)
[2025-07-24] MEDS: LOVENOX 30 MG SC (21:18)
[2025-07-24] MEDS: MUCINEX 600 MG PO (21:18)
[2025-07-25 03:38] VITALS: BP 138/64
[2025-07-25 06:20] LABS: Blood Urea Nitrogen 13 mg/dl (9-20); Calcium 9.0 mg/dl (8.4-10.2); Chloride 98 mmol/L (98-107); Estimated Creatinine Clearance 77 ml/min; Glucose 113 mg/dl (70-99); Potassium 4.6 mmol/L (3.5-5.1); Sodium 135 mmol/L (135-145); eGFR > 60.00
[2025-07-25 06:28] LABS: Carbon Dioxide 33 mmol/L (22-30)
[2025-07-25] MEDS: PULMICORT 0.5 MG INH (07:02)
[2025-07-25] MEDS: DUONEB 3 ML INH ×2 (07:02→11:20)
[2025-07-25 08:05] VITALS: BP 132/76
[2025-07-25] MEDS: ZOLOFT 100 MG PO (08:23)
[2025-07-25] MEDS: DECADRON 4 MG IV ×2 (08:23→20:16)
[2025-07-25] MEDS: MUCINEX 600 MG PO ×2 (08:23→20:16)
[2025-07-25] MEDS: NICODERM TRANSDERMAL 14 MG TRANSDERM (08:23)
--- NOTE | 2025-07-25 09:32 | W.PN.HOSP.TC ---
Today's Communication/Plan
-
see plan
Assessment / Plan
Assessment / Plan
Gen: NAD, AAOx3, cachectic, appears chronically ill and malnourished.
Eyes: EOMI, PERRLA, no scleral icterus.
Neck: supple.
CV: RRR, +S1/S2, no m/r/g.
Resp: CTAB, no rales, wheezes, or rhonchi. Barrel chested.
Abd: +BS, soft, NT, ND
Skin: No rashes.
Neuro: CN 2-12 intact, non-focal.
Psych: Normal mood and affect.
CXR: Hyperinflated lungs. No acute pulmonary process.
Acute COPD Exacerbation:
-saturating well on RA
-Consult Pulmonary
-Continue DuoNeb QID and PRN
-Continue Decadron 4mg IV q12H
-Continue Mucinex
-Transition Symbicort to Pulmicort Neb during hospitalization
Anxiety / Depression
-Continue sertraline and hydroxyzine PRN
Nicotine Dependence / Tobacco Use Disorder
-Encourage smoking cessation
-Continue Nicotine Patch
FULL/Lovenox
Anticipated Discharge: Within 24 hours
Subjective/Interval History
-
Date of Service: July 25, 2025
Objective Data
-
Labs:
Laboratory Results
07/25/25
05:29
Sodium 135
Potassium 4.6
Chloride 98
Carbon Dioxide 33 H
BUN 13
Creatinine 0.7
Glucose 113 H
Calcium 9.0
Vital Signs:
Vital Signs
Temp Pulse Resp BP Pulse Ox
97.8 F 102 20 132/76 100
07/25/25 08:05 07/25/25 08:05 07/25/25 08:05 07/25/25 08:05 07/25/25 08:05
I&O
07/24/25 07/25/25 07/26/25
06:59 06:59 06:59
Intake Total 240 / 240
Output Total 550 / 550
Balance -310 / -310
[2025-07-25 09:58] VITALS: BP 113/67; BP 146/75; PULSE 96; O2SAT 92; BMI 15.2
[2025-07-25 11:07] VITALS: BP 113/67; BP 145/75; PULSE 96; O2SAT 92
--- NOTE | 2025-07-25 11:38 | CM ---
CM consult received today. Pt lives alone in an apartment, has no resources and struggling to take care of himself.
Pt called 911 from his home for help. Police advised they would call [facility] [employer] for patient assistance. Pt has no support other than a neighbor who helps him with food; pt unable to manage his own ADLs.
SNF recommended by therapy. Referrals sent to [facility], [facility], [facility], [facility], and [facility] for consideration.
Plan: CM to follow up with [facility]; anticipate transfer to SNF when medically stable.
--- NOTE | 2025-07-25 13:18 | CON.PUL ---
Consultation
Consultation Request
Date/Time Consultation Requested: 07/24/2025 - 2209
Date/Time Consultation Performed: 07/25/2025 - 1149
Requesting Provider: Kelley Collins PA-C
Performing Provider: Dr. Rendon
Reason for Consultation: COPD exacerbation
Medical History
-
Chief Complaint: SOB
History of Present Illness:
64-year-old male with a past medical history of very severe COPD/bullous emphysema, history of asthma, history of pneumonia, history of colonic polyps, depression, hypertension, history of alcohol abuse and continued tobacco use who presents with
shortness of breath. He initially was afebrile in the ER, pulse rate 96, respiratory rate between 20�28 breaths/min, BP 128/71 and saturating 95% on room air. Initial labs with normal WBC at 6, Hb 13.1, absolute eosinophil count, serum bicarbonate
level: 36, troponin negative at <0.012, and proBNP 90.7. Flu swab found to be negative, and he was COVID-19 antigen negative. CXR showed no evidence of an acute pulmonary process. He was given DuoNebs in the ER, Solu-Medrol and Ativan. Admitted
to the hospitalist service for further care, and now pulmonary service consulted for additional management/recommendations.
Of note, patient has been following with us in the Pulmonary office, last visit 12/20/[address] Timmons. Last full PFT was 12/20/2023 showing very severe persistent obstructive lung defect with a significant bronchodilator response, borderline
hyperinflation (T%) with evidence of air trapping (RV: 161%), with a severely reduced diffusing capacity (DLCO: 23%). He is prescribed Symbicort + Spiriva with as needed DuoNebs. 6 MWT showed no need for oxygen.
PMHx: History of COPD/asthma, history of pneumonia, history of colon polyps, depression, hypertension, tobacco use disorder, alcohol use
PSHx: Non-contributory
Past Medical History
Past Medical History: Other (Above as per HPI)
Past Surgical History: Other (Above as per HPI)
Social History
Tobacco: Smoker (smokes 0.5 PPD with a 36-fbse-phyl history)
Alcohol: Former
Drug: None
Personal: Single
Living: Alone
Family History
Family History: Cancer (Maternal grandmother, maternal aunt and cousin: Colon cancer; brother: T-cell cancer) and Other (Mother: History of pneumonia; Father: Heart attack)
Allergies / Home Medications
Allergies
Allergy/AdvReac Type Severity Reaction Status Date / Time
No Known Allergies Allergy Verified 07/24/25 14:50
Home Medications
�Medication �Instructions �Recorded �Confirmed �Last Taken �Type
sertraline 100 mg tablet 100 mg PO DAILY Mental 10/03/23 07/24/25 07/24/25 History
Health/Anxiety
budesonide-formoterol HFA 160 2 puff inhalation R BID #10.2 grams 10/13/23 07/24/25 07/24/25 Rx
mcg-4.5 mcg/actuation aerosol
inhaler (Symbicort)
ipratropium 0.5 mg-albuterol 3 mg 3 ml inhalation R Q4HPRN PRN SOB, 10/13/23 07/24/25 07/23/25 Rx
(2.5 mg base)/3 mL nebulization COUGH, WHEEZE #90 mL
soln
albuterol sulfate 90 mcg/actuation 2 puff inhalation R Q6HPRN PRN 07/24/25 07/24/25 Unknown History
aerosol inhaler shortness of breath or wheezing
diphenhydramine HCl 25 mg tablet 25 mg PO DAILYPRN PRN anxiety 07/24/25 07/24/25 Unknown History
hydroxyzine HCl 25 mg tablet 25 mg PO DAILYPRN PRN anxiety 07/24/25 07/24/25 07/22/25 History
naproxen sodium 220 mg tablet 440 mg PO DAILYPRN PRN mild pain 07/24/25 07/24/25 Unknown History
(Aleve)
tiotropium bromide 1.25 2 puff inhalation R QPM 07/24/25 07/24/25 07/24/25 History
mcg/actuation mist for inhalation Lung/Breathing Issues
(Spiriva Respimat)
Review of Systems
-
History Source: Patient
All other systems: Negative unless noted
Vitals / Labs / Diagnostic Testing
Vital Signs
Temp Pulse Resp BP Pulse Ox
97.8 F 102 20 132/76 96
07/25/25 08:05 07/25/25 08:05 07/25/25 08:05 07/25/25 08:05 07/25/25 08:30
Lab Data
07/24/25 15:50
07/25/25 05:29
Microbiology
07/24/25 17:02 Nasal Swab Influenza Types A & B (NELSON) - Final
Negative for Influenza A & B, NAAT
Negative results must be combined with clinical observations
and patient history.
Nucleic Acid Amplification test (NAAT)performed on the
[employer] platform.
Diagnostic Testing:
Physical Exam
-
HEENT: Normocephalic and Anicteric
Cardiovascular: S1/S2, Peripheral Edema (negative) and Other (Distant cardiac sounds)
Respiratory: Wheeze (negative), Rales (negative), Rhonchi (negative), Non-Labored Respirations and Other (Diminished breath sounds bilaterally)
GI: Soft, Non Distended, Non Tender and Normal Bowel Sounds
Neurology: Awake, Alert, Oriented and Tremors (negative)
Skin: Warm and Dry
General: Respiratory Distress (negative), Comfortable, Fever (negative) and Chills (negative)
Assessment
-
Assessment: 64-year-old male with a past medical history of very severe COPD/bullous emphysema, history of asthma, history of pneumonia, history of colonic polyps, depression, hypertension, history of alcohol abuse and continued tobacco use who
presents with shortness of breath. He initially was afebrile in the ER, pulse rate 96, respiratory rate between 8 breaths/min, BP 128/71 and saturating 95% on room air. Initial labs with normal WBC at 6, Hb 13.1, absolute eosinophil count,
serum bicarbonate level: 36, troponin negative at <0.012, and proBNP 90.7. Flu swab found to be negative, and he was COVID-19 antigen negative. CXR showed no evidence of an acute pulmonary process. He was given Du[facility]bs in the ER, [facility] to the [facility] service for further care, and now pulmonary service consulted for additional management/recommendations.
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
Impression:
#Acute exacerbation of COPD
#Eosinophilia (absolute eosinophils: 500 on admission)
#Bullous emphysema with group E COPD, class IV
#Active tobacco use disorder (currently smokes 0.5 PPD and carries a 19-uohj-kiwn history)
#History of alcohol abuse
#History of pneumonia
Plan:
- Patient has been admitted for a COPD exacerbation
- Patient follows with us in the [facility] office, last saw Dr. Timmons in December 2023. He has since switched providers to Dr. Lincoln which he has not officially been seen by her yet. Of note, his last COPD flareup was in March 2024 when he went to ER
here at (not admitted then)
- Continue systemic steroids and wean as he clinically improves � currently on Decadron 4 mg IV q12hr
- Mucolytics with Mucinex
- Initially on admission he was on DuoNebs + budesonide, but has now been switched back to Symbicort 160 mcg + Spiriva Respimat 2.5 mcg
- Maintain SpO2 88-95%, weaning down supplemental O2 as tolerated
- Home O2 assessment prior to discharge
- prn nebulized bronchodilators - patient not currently bronchospastic
- Given the degree of obstruction he has as well as gas exchange capacity defect, he is at high risk of pulmonary HTN - -> would obtain an echo, but this can be done as an outpatient as this current flare can falsely worsen pulmonary pressures, so
ideally an echo should be obtained once he is back to baseline
- Tobacco cessation is trujillo, especially given the degree of obstruction that he has seen on spirometry as well as degree of gas exchange capacity defect
- continue nicotine patch
- Once he is discharged, he will need to follow-up with us in the pulmonary office. He is due for updated PFTs +6 MWT. Considering he has a 50-dazy-unjq smoking history, and continues to smoke and is 64 years old, he qualifies for lung cancer
screening (last done in September 2024). Next will be due until September 2025
- Given that patient is now hospitalized with COPD flare, he now has group E COPD. He would benefit from pulmonary rehab, which can be discussed with him in the office.
- Given that he has a history of eosinophilia (absolute eosinophils: 500 on admission), he could be a candidate for biologic therapy if he continues to be symptomatic following this hospitalization.
- May also benefit from zithromax 500mg TIW vs 250mg daily +/- ohtuvayre - -> can be discussed in the office
- Replete electrolytes with K>4, Mg>2
- Maintain euglycemia with goal BG >100mg/dL and <180mg/dL
- Trend H/H and transfuse if needed to keep Hb >7-8g/dL; keep plt>10-20k, unless there is concern for bleeding then keep plt>50k
- Incentive spirometer encouraged 10x per hour for at least 4 hours a day
- Flutter valve can be added if needed
- DVT ppx: LMWH
Pulmonary service will continue to follow along.
Total time spent today was 58 minute for this encounter. Time includes reviewing laboratory tests/imaging results, reviewing pertinent medical records, obtaining and reviewing medical history, performing an appropriate physical exam, ordering
medications, tests and procedures. Time also includes documentation of this encounter, coordinating patient care and communicating with other healthcare professionals. Total time does not include separately billed tests or procedures performed on
this date of service.
[2025-07-25] MEDS: SYMBICORT 160/4.5 MCG INHALER INH (13:43)
[2025-07-25 15:29] VITALS: BP 139/80
[2025-07-25] MEDS: NAPROSYN 500 MG PO (16:16)
[2025-07-25] MEDS: LOVENOX 30 MG SC (17:01)
[2025-07-25] MEDS: SPIRIVA RESPIMAT 2.5 MCG 2 PUFF INH (20:00)
[2025-07-25] MEDS: SYMBICORT 160/4.5 MCG INHALER 2 PUFF INH (20:00)
[2025-07-25 23:24] VITALS: BP 126/80
[2025-07-26] MEDS: ATARAX 25 MG PO ×2 (00:49→16:22)
[2025-07-26 07:30] VITALS: BP 137/70
[2025-07-26] MEDS: SYMBICORT 160/4.5 MCG INHALER 2 PUFF INH ×2 (08:06→19:12)
--- NOTE | 2025-07-26 08:06 | W.PN.HOSP.TC ---
Addendum entered and electronically signed by Raul Jaramillo MD 07/26/25 22:31:
Attending Addendum-
I saw and evaluated the patient. I reviewed the resident�s note and agree with findings and plan as documented in the resident�s note. Sub: Less SOB. Continued cough. No fevers chills. Full 12 point ROS reviewed and negative except as documented
Exam: Vitals reviewed in chart GEN-NAD cachexic appearing heart RRR lungs decreased BS @ Bases No W/R/R Abd soft LE no edema
Plan:
#Acute COPD Exacerbation
-resolving
-saturating well on RA
-appreciate Pulmonary input
-Continue DuoNeb QID and PRN
-transition Decadron->Prednisone
-Continue Mucinex
-Transition Symbicort to Pulmicort Neb during hospitalization
#Anxiety / Depression
-Continue sertraline and hydroxyzine PRN
#Nicotine Dependence / Tobacco Use Disorder
-Encouraged smoking cessation
-Continue Nicotine Patch
# Severe PCM
- nutrition consult
Dispo DC to SN[facility] in AM, awaiting auth
Time spent coordinating care, review of plan of care with resident, personally reviewed records in EMR, med rec, consults, notes, labs, radiology, d/w nursing � 51 mins
FULL/Lovenox
Original Note:
Today's Communication/Plan
-
Convert Dexamethasone to 40mg Prednisone QD
Waiting Prior auth by SNF for discharge
Assessment / Plan
Assessment / Plan
A 64 y/o male presented with pmh of COPD chronic smoker, GERD, anxiety/depression who presented to ED on 07/24 with productive coughing of clear mucous and SOB. His breathing was getting worse since spring but he had difficulty to schedule an
appt with his Dr. He has been using his home inhalers without much improvement in his symptoms.
Acute COPD exacerbation with peripheral eosinophilia
-O2 sat on RA 94%
-Supplemental oxygen if needed
-eosinophil 9%
-Consult dining service inspector, input appreciated
-- Home O2 assessment prior to discharge, OUTPATIENT: he is at high risk of pulmonary hypertension- obtain echo, follow-up with them in the pulmonary office. He is due for updated PFTs +6 MWT. Pulmonary rehab.
-Decadron convert to prednisone 40 mg with slow taper in the next 24 hours
-Continue Mucinex
-Transition to Symbicort (budesonide and formoterol) and Spiriva from DuoNeb and Budesonide
-Nasal swab Influenza types A &B NEG
-PT/OT eval- skilled rehab 1-2 hours/day
likely Severe Protein calorie malnutrition of chronic disease
-4 months ago his weight was 148 per pt. This would be 26.4% BW loss over 4 months
-Current BMI 15.2, 109lbs
-He lives alone and has difficulty to acces food, limited ADL
Chest Xray: Hyperinflated lungs. No acute pulmonary process
ECG: Sinus rhythm with premature atrial complexes
Anxiety/Depression
-Continue Sertraline and hydroxyzine prn
Nicotine Dependence / Tobacco use disorder
-He is trying to quit 7 cigarettes/day
-Encouraged smoking cessation
-Continue nicotine patch
DVT prophylaxis: Lovenox
Full code
Anticipated Discharge: Within 24 hours
Subjective/Interval History
-
Date of Service: July 26, 2025
He is breathing normal on RA. He reports being able to cough greenish mucous out earlier. Since then his SOB improved.Still coughing but not as much as yesterday. Denies Chest pain, abdominal pain, fever.
Objective Data
-
Vital Signs:
Vital Signs
Temp Pulse Resp BP Pulse Ox
97.3 F 76 16 137/70 93
07/26/25 07:30 07/26/25 07:30 07/26/25 07:30 07/26/25 07:30 07/26/25 07:30
I&O
07/25/25 07/26/2525
06:59 06:59 06:59
Intake Total 720 / 720 960 / 960
Output Total 550 / 550 2750 / 2750
Balance 170 / 170 -1790 / -1790
Review of Systems
-
History Source: Patient
Constitutional: Reports No Symptoms
Respiratory: Reports Cough
Cardiac: Reports No Symptoms
Abdomen/GI: Reports No Symptoms
Breast: Reports No Symptoms
Genitourinary: Reports No Symptoms
Musculoskeletal: Reports No Symptoms
Skin: Reports No Symptoms
Neuro: Reports No Symptoms
Endocrine: Reports No Symptoms
Hematologic / Lymphatic: Reports No Symptoms
Allergy / Immunology: Reports No Symptoms
Physical Exam
-
General: No Apparent Distress, Conversant, Appears Chronically Ill and Cachectic
HEENT: Normocephalic
Respiratory: Clear to Auscultation, Non Labored Respirations and Decreased Breath Sounds
Cardiac: Regular Rhythm and S1/S2
Breast: Deferred by me
GI: Soft, Nontender, Nondistended and Normal Bowel Sounds
Rectal: Deferred by Provider
Musculoskeletal: No Cyanosis and No Edema
Neuro: AO x 3
Psych: Calm
--- NOTE | 2025-07-26 09:37 | W.PN.PUL.V3 ---
Today's Communication / Plan
-
Decadron-consider changing to prednisone 40 mg with slow taper in the next 24 hours
Continue inhalers
Nebulizers if needed
Increase activity
Assess discharge supplemental oxygen needs
Outpatient pulmonary follow-up
Assessment
-
Assessment: 64-year-old male with a past medical history of very severe COPD/bullous emphysema, history of asthma, history of pneumonia, history of colonic polyps, depression, hypertension, history of alcohol abuse and continued tobacco use who
presents with shortness of breath. He initially was afebrile in the ER, pulse rate 96, respiratory rate between 20�28 breaths/min, BP 128/71 and saturating 95% on room air. Initial labs with normal WBC at 6, Hb 13.1, absolute eosinophil count,
serum bicarbonate level: 36, troponin negative at <0.012, and proBNP 90.7. Flu swab found to be negative, and he was COVID-19 antigen negative. CXR showed no evidence of an acute pulmonary process. He was given DuoNebs in the ER, Solu-Medrol and
Ativan. Admitted to the hospitalist service for further care, and now pulmonary service consulted for additional management/recommendations.
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
Impression:
#Acute exacerbation of COPD
#Eosinophilia (absolute eosinophils: 500 on admission)
#Bullous emphysema with group E COPD, class IV
#Active tobacco use disorder (currently smokes 0.5 PPD and carries a 63-nycf-onpj history)
#History of alcohol didvw-82-fztk-year smoker-ongoing
#History of pneumonia
Plan:
Respiratory decompensation due to COPD exacerbation
Supplemental oxygen if needed
Assess discharge supplemental oxygen needs prior to discharge
Decadron 4 mg IV every 12 hours-convert to prednisone with slow taper
Mucolytic's
Symbicort and Spiriva
Nebulizers as needed-currently not bronchospastic
Echocardiogram pending
Smoking cessation counseling
Nicotine patch
Follow hemoglobin
Transfuse as needed
Monitor blood sugar
Insulin supplementation as needed
DVT prophylaxis-on Lovenox
Nutrition
Early mobilization
The patient originally saw Dr. Timmons in December 2023 and then because of 'insurance issues' the patient switched to Dr. Lincoln was not seeing the patient officially yet-needs PFT, 6-minute walk test, low-dose lung cancer screening CT-next one due
September 2025, and consideration towards Biologics such as IL-5 inhibitors with significant eosinophilia-COPD/asthma overlap
Subjective Data
-
Date of Service:
Date of Service: July 26, 2025
Chief Complaint: Pulmonary Follow Up and Dyspnea Follow Up
Subjective:
Feels about the same, still some shortness of breath, some yellow mucus production, mild dyspnea on exertion, no chest pain or abdominal pain
Review of Systems
General: Other (Per HPI)
Objective Data
Data Reviewed
Vital Signs / I&O:
Vital Signs
Temp Pulse Resp BP Pulse Ox
97.3 F 74 16 137/70 94
07/26/25 07:30 07/26/25 08:10 07/26/25 08:10 07/26/25 07:30 07/26/25 08:10
Intake and Output
07/25/25 07/26/25 07/27/25
06:59 06:59 06:59
Intake Total 720 / 720 960 / 960
Output Total 550 / 550 2750 / 2750
Balance 170 / 170 -1790 / -1790
SaO2: 94
Physical Exam
General: Respiratory Distress (n) and Comfortable
HEENT: Normocephalic, Anicteric and Moist Mucous Membranes
Cardiovascular: Regular Rhythm
Respiratory: Wheeze (n), Crackles (n), Rhonchi, Non-Labored Respirations, Accessory Resp Muscle Use (n) and Stridor
GI: Soft, Non Distended and Non Tender
Neurology: Awake, Alert and No Motor Deficits
Skin: Warm, Good Color, Cyanosis (n), Jaundice (n) and Rash (n)
Labs/Micro/Reports
Lab Data
07/24/25 15:50
07/25/25 05:29
Microbiology
07/24/25 17:02 Nasal Swab Influenza Types A & B (NELSON) - Final
Negative for Influenza A & B, NAAT
Negative results must be combined with clinical observations
and patient history.
Nucleic Acid Amplification test (NAAT)performed on the
[employer] platform.
[2025-07-26] MEDS: DECADRON 4 MG IV (10:01)
[2025-07-26] MEDS: ZOLOFT 100 MG PO (10:02)
[2025-07-26] MEDS: NICODERM TRANSDERMAL 14 MG TRANSDERM (10:02)
[2025-07-26] MEDS: MUCINEX 600 MG PO ×2 (10:03→20:32)
[2025-07-26 15:30] VITALS: BP 121/81
--- NOTE | 2025-07-26 15:46 | PN.CDI ---
CDI
- -
CDI:
Physician Documentation Request
Admit Date: 07/24/25 18:32
Dear Doctor,
Please review the following and provide your response in the progress notes.
Clinical Indicators:
Pt admitted for Acute COPD exacerbation with peripheral eosinophilia.
07/25 PN: ' Gen: NAD, AAOx3, cachectic, appears chronically ill and malnourished.'
07/25 Registered Dietitian: ' Initial assessment due to consult for weight loss.... He states that 4 months ago he weighed 148 lbs. This would be a 26.4% BW loss over 4 months (significant).....
Current BW: (07/24) 109 lbs 2 oz BMI: 15.2 (underweight). Weight history (03/16/24) 145 lbs
Patient meets AND and ASPEN criteria for severe protein calorie malnutrition of chronic disease due to a loss of more than 7.5% BW over the past 3 months and less than 75% of estimated nutrition needs met for more than 1 month.'
Based on the above information and your assessment, which of the following most accurately represents the patient's nutritional status?
Severe Protein Calorie Malnutrition
Other (please specify)
[place] Criteria (ACP Hospitalist 2017)
2 or more criteria must be present for either
non severe or severe malnutrition
Note that the criteria differs related to the
presence of an acute or chronic illness
Chronic Illness
Energy Intake Non Severe: <75% for >1 month
Severe: <75% for >1 month
Weight Loss Non Severe: 5% over 1 month
7.5% over 3 months
10% over 6 months
20% over 1 year
Severe: >5% over 1 month
>7.5% over 3 months
>10% over 6 months
>20% over 1 year
Body Fat Non Severe: Mild Loss
Severe: Severe Loss
Muscle Mass Non Severe: Mild Loss
Severe: Severe Loss
Fluid Accumulation Non Severe: Mild Accumulation
Severe: Moderate to severe
accumulation
Reduced Candle Molder Strength Non Severe: N/A
Severe: Measurably reduced
Use of terms such as suspected, likely, concern for, or probable (associated with a specific diagnosis that is being evaluated, monitored, or treated as if it exists) are acceptable and can be coded in the inpatient setting, when documented at the
time of discharge.
Thank you,
Page Ledezma RN, BSN
CDI Specialist
[place] [facility]
Please use your independent medical judgment in providing your response.
--- NOTE | 2025-07-26 15:57 | PN.CDI ---
CDI
- -
CDI:
Physician Documentation Request
Admit Date: 07/24/25 18:32
Dear Doctor,
Please review the following and provide your response in the progress notes.
Clinical Indicators:
Pt admitted for Acute COPD exacerbation with peripheral eosinophilia.
07/25 PN: ' Gen: NAD, AAOx3, cachectic, appears chronically ill and malnourished.'
07/25 Registered Dietitian: ' Initial assessment due to consult for weight loss.... He states that 4 months ago he weighed 148 lbs. This would be a 26.4% BW loss over 4 months (significant).....
Current BW: (07/24) 109 lbs 2 oz BMI: 15.2 (underweight). Weight history (03/16/24) 145 lbs
Patient meets AND and ASPEN criteria for severe protein calorie malnutrition of chronic disease due to a loss of more than 7.5% BW over the past 3 months and less than 75% of estimated nutrition needs met for more than 1 month.'
Based on the above information and your assessment, which of the following most accurately represents the patient's nutritional status?
Severe Protein Calorie Malnutrition
Other (please specify)
[place] Criteria (ACP Hospitalist 2017)
2 or more criteria must be present for either
non severe or severe malnutrition
Note that the criteria differs related to the
presence of an acute or chronic illness
Chronic Illness
Energy Intake Non Severe: <75% for >1 month
Severe: <75% for >1 month
Weight Loss Non Severe: 5% over 1 month
7.5% over 3 months
10% over 6 months
20% over 1 year
Severe: >5% over 1 month
>7.5% over 3 months
>10% over 6 months
>20% over 1 year
Body Fat Non Severe: Mild Loss
Severe: Severe Loss
Muscle Mass Non Severe: Mild Loss
Severe: Severe Loss
Fluid Accumulation Non Severe: Mild Accumulation
Severe: Moderate to severe
accumulation
Reduced Paper Wood Cutter Strength Non Severe: N/A
Severe: Measurably reduced
Use of terms such as suspected, likely, concern for, or probable (associated with a specific diagnosis that is being evaluated, monitored, or treated as if it exists) are acceptable and can be coded in the inpatient setting, when documented at the
time of discharge.
Thank you,
Page Ledezma RN, BSN
CDI Specialist
[place] [facility]
Please use your independent medical judgment in providing your response.
[2025-07-26] MEDS: LOVENOX 30 MG SC (16:22)
[2025-07-26 16:23] VITALS: BP 135/71; PULSE 95; O2SAT 92
--- NOTE | 2025-07-26 16:38 | CM ---
Pt given find [email or web address] hand out for when he returns home.
PT indicates SNF.
Referrals sent to Ashutosh Trevino , [facility], Sunitha Castro, and [facility] Palmer for consideration.
[facility]
Call [facility] at pr with [facility].
[facility]
Dr Perea [phone]
Needs auth with [facility]
Plan: CM to follow up with QIANA[facility]; [facility] after auth obtained.
[2025-07-26] MEDS: VENTOLIN NEBULES 2.5 MG INH (16:42)
[2025-07-26] MEDS: SPIRIVA RESPIMAT 2.5 MCG 2 PUFF INH (19:12)
[2025-07-26] MEDS: DELTASONE 20 MG PO (20:33)
[2025-07-26 23:25] VITALS: BP 110/72
[2025-07-27 06:36] LABS: Hematocrit 40.2 % (39.0-52.0); Hemoglobin 13.5 g/dL (13.0-18.0); Mean Corp Hgb Conc. 33.6 g/dL (33.0-37.0); Mean Corpuscular Volume 93.5 fL (80.0-94.0); Platelet Count 272 10^3/uL (130-400); Red Cell Dist. Width 12.2 % (11.5-14.5)
[2025-07-27 07:01] LABS: Blood Urea Nitrogen 18 mg/dl (9-20); Calcium 8.9 mg/dl (8.4-10.2); Chloride 99 mmol/L (98-107); Estimated Creatinine Clearance 67 ml/min; Glucose 97 mg/dl (70-99); Potassium 4.8 mmol/L (3.5-5.1); Sodium 135 mmol/L (135-145); eGFR > 60.00
[2025-07-27 07:10] VITALS: BP 118/61
[2025-07-27 07:10] LABS: Carbon Dioxide 32 mmol/L (22-30)
[2025-07-27] MEDS: SYMBICORT 160/4.5 MCG INHALER 2 PUFF INH ×2 (07:23→19:34)
--- NOTE | 2025-07-27 09:18 | W.PN.HOSP.TC ---
Addendum entered and electronically signed by Raul Jaramillo MD 07/27/25 22:10:
Attending Addendum-
I saw and evaluated the patient. I reviewed the resident�s note and agree with findings and plan as documented in the resident�s note. Sub: Less SOB. Continued wet cough. No fevers chills. Full 12 point ROS reviewed and negative except as documented
Exam: Vitals reviewed in chart GEN-NAD cachexic appearing heart RRR lungs decreased BS @ Bases No W/R/R Abd soft LE no edema
Plan:
#Acute COPD Exacerbation
-resolving
-saturating well on RA
-appreciate Pulmonary input
-Continue DuoNeb QID and PRN
-transitioned Decadron->Prednisone with long taper
-Continue Mucinex
#Anxiety / Depression
-Continue sertraline and hydroxyzine PRN
#Nicotine Dependence / Tobacco Use Disorder
-Encouraged smoking cessation
-Continue Nicotine Patch
# Severe PCM
- nutrition on board cont high caloric intake
- check HIV, TSH
Dispo DC to SNF [facility] in AM, CM contacted awaiting response/auth
ACP
Patient consented to discuss, was alone, time spent explanation of advance directives, changes in health status, patient�s health care wishes if the patient becomes unable to make health decisions, goals of care, code status, and prognosis, 'yes i
want everything to be done'- 16 minutes
Time spent coordinating care, review of plan of care with resident, personally reviewed previous records in EMR, med rec, labs, radiology, d/w nursing, family total time documented is exclusive of any additional time listed that was spent in advance
care planning discussion -�51 minutes
Original Note:
Today's Communication/Plan
-
Taper down 40mg Prednisone every 30days
qual research manager working on SNF for bed availability
Assessment / Plan
Assessment / Plan
A 64 y/o male presented with pmh of COPD chronic smoker, GERD, anxiety/depression who presented to ED on 07/24 with productive coughing of clear mucous and SOB. His breathing was getting worse since spring but he had difficulty to schedule an
appt with his Dr. He has been using his home inhalers without much improvement in his symptoms.
Acute COPD exacerbation with peripheral eosinophilia
-O2 sat on RA 94%
-Supplemental oxygen if needed
-eosinophil 9%
-Consult sales consultant residential manager, input appreciated
-- Home O2 assessment prior to discharge, OUTPATIENT: he is at high risk of pulmonary hypertension- obtain echo, follow-up with them in the pulmonary office. He is due for updated PFTs +6 MWT. Pulmonary rehab.
-Decadron convert to prednisone 40 mg with slow taper in the next 24 hours. Taper 10mg down every 3 days.
-Continue Mucinex
-Transition to Symbicort (budesonide and formoterol) and Spiriva from DuoNeb and Budesonide
-Nasal swab Influenza types A &B NEG
-PT/OT eval- skilled rehab 1-2 hours/day
-Overall improved
likely Severe Protein calorie malnutrition of chronic disease
-4 months ago his weight was 148 per pt. This would be 26.4% BW loss over 4 months
-Current BMI 15.2, 109lbs
-He lives alone and has difficulty to acces food, limited ADL
Chest Xray: Hyperinflated lungs. No acute pulmonary process
ECG: Sinus rhythm with premature atrial complexes
Anxiety/Depression
-Continue Sertraline and hydroxyzine prn
Nicotine Dependence / Tobacco use disorder
-He is trying to quit 7 cigarettes/day
-Encouraged smoking cessation
-Continue nicotine patch
DVT prophylaxis: Lovenox
Full code
Anticipated Discharge: Today
Subjective/Interval History
-
Date of Service: July 27, 2025
Patient reports coughing a lot of clear mucous this morning. He denies SOB. He has been walking on the hallway with PT. Overall he is feeling better.
Objective Data
-
Labs:
Laboratory Results
07/27/25
05:56
WBC 7.1
Hgb 13.5
Hct 40.2
Plt Count 272
Sodium 135
Potassium 4.8
Chloride 99
Carbon Dioxide 32 H
BUN 18
Creatinine 0.8
Glucose 97
Calcium 8.9
Vital Signs:
Vital Signs
Temp Pulse Resp BP Pulse Ox
97.9 F 79 18 118/61 94
07/27/25 07:10 07/27/25 07:26 07/27/25 07:26 07/27/25 07:10 07/27/25 07:26
I&O
07/26/25 07/27/25 07/28/25
06:59 06:59 06:59
Intake Total 960 / 960 480 / 480
Output Total 2750 / 2750 200 / 200
Balance -1790 / -1790 280 / 280
Review of Systems
-
History Source: Patient
Constitutional: Reports No Symptoms
Respiratory: Reports Cough
Cardiac: Reports No Symptoms
Abdomen/GI: Reports No Symptoms
Breast: Reports No Symptoms
Genitourinary: Reports No Symptoms
Musculoskeletal: Reports No Symptoms
Skin: Reports No Symptoms
Neuro: Reports No Symptoms
Endocrine: Reports No Symptoms
Hematologic / Lymphatic: Reports No Symptoms
Allergy / Immunology: Reports No Symptoms
Physical Exam
-
General: No Apparent Distress, Conversant, Appears Chronically Ill and Cachectic
HEENT: Normocephalic
Respiratory: Clear to Auscultation, Wheezes (left lower lobe), Non Labored Respirations and Decreased Breath Sounds
Cardiac: Regular Rhythm and S1/S2
Breast: Deferred by me
GI: Soft, Nontender, Nondistended and Normal Bowel Sounds
Rectal: Deferred by Provider
Musculoskeletal: No Cyanosis and No Edema
Neuro: AO x 3
Psych: Calm
[2025-07-27] MEDS: DELTASONE 40 MG PO (09:33)
[2025-07-27] MEDS: NICODERM TRANSDERMAL 14 MG TRANSDERM (09:33)
[2025-07-27] MEDS: MUCINEX 600 MG PO ×2 (09:33→20:06)
[2025-07-27] MEDS: ZOLOFT 100 MG PO (09:33)
--- NOTE | 2025-07-27 09:56 | W.PN.PUL.V3 ---
Today's Communication / Plan
-
Prednisone taper
Does not require oxygen on ambulation
Continue inhalers and nebulizers as needed
Outpatient pulmonary follow-up
Assessment
-
Assessment: 64-year-old male with a past medical history of very severe COPD/bullous emphysema, history of asthma, history of pneumonia, history of colonic polyps, depression, hypertension, history of alcohol abuse and continued tobacco use who
presents with shortness of breath. He initially was afebrile in the ER, pulse rate 96, respiratory rate between 8 breaths/min, BP 128/71 and saturating 95% on room air. Initial labs with normal WBC at 6, Hb 13.1, absolute eosinophil count,
serum bicarbonate level: 36, troponin negative at <0.012, and proBNP 90.7. Flu swab found to be negative, and he was COVID-19 antigen negative. CXR showed no evidence of an acute pulmonary process. He was given DuoNebs in the ER, Solu-Medrol and
Ativan. Admitted to the hospitalist service for further care, and now pulmonary service consulted for additional management/recommendations.
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
Impression:
#Acute exacerbation of COPD
#Eosinophilia (absolute eosinophils: 500 on admission)
#Bullous emphysema with group E COPD, class IV
#Active tobacco use disorder (currently smokes 0.5 PPD and carries a 45-qskx-kwrw history)
#History of alcohol soouo-45-xylh-year smoker-ongoing
#History of pneumonia
Plan:
Respiratory decompensation due to COPD exacerbation
Supplemental oxygen if needed-currently on room air-94% saturation
Assess discharge supplemental oxygen needs prior to discharge-ambulated on room air 75 feet 07/27/2025 with a desaturation lawrence 93 and heart rate 110-130
Prednisone 40 mg daily with slow taper
Mucolytic's
Symbicort and Spiriva
Nebulizers as needed-currently not bronchospastic
Echocardiogram 07/26/2025-EF 70-75%, no regional wall motion abnormalities
Smoking cessation counseling ongoing
Nicotine patch
Follow hemoglobin
Transfuse as needed
Monitor blood sugar
Insulin supplementation as needed
DVT prophylaxis-on Lovenox
Nutrition
Early mobilization
The patient originally saw Dr. Timmons in December 2023 and then because of 'insurance issues' the patient switched to Dr. Lincoln was not seeing the patient officially yet-needs PFT, 6-minute walk test, low-dose lung cancer screening CT-next one due
September 2025, and consideration towards Biologics such as IL-5 inhibitors with significant eosinophilia-COPD/asthma overlap
Subjective Data
-
Date of Service:
Date of Service: July 27, 2025
Chief Complaint: Pulmonary Follow Up and Dyspnea Follow Up
Subjective:
Feels better, still has some [place] exertion but recovery improved, no chest pain, productive cough has improved and denies abdominal pain
Review of Systems
General: Other (Per HPI)
Objective Data
Data Reviewed
Vital Signs / I&O:
Vital Signs
Temp Pulse Resp BP Pulse Ox
97.9 F 79 18 118/61 94
07/27/25 07:10 07/27/25 07:26 07/27/25 07:26 07/27/25 07:10 07/27/25 07:26
Intake and Output
07/26/25 07/27/25 07/28/25
06:59 06:59 06:59
Intake Total 960 / 960 480 / 480
Output Total 2750 / 2750 200 / 200
Balance -1790 / -1790 280 / 280
SaO2: 94
Physical Exam
General: Respiratory Distress (n) and Comfortable
HEENT: Normocephalic, Anicteric and Moist Mucous Membranes
Cardiovascular: Regular Rhythm
Respiratory: Wheeze (n), Crackles (n), Rhonchi, Non-Labored Respirations, Accessory Resp Muscle Use (n) and Stridor
GI: Soft, Non Distended and Non Tender
Neurology: Awake, Alert and No Motor Deficits
Skin: Warm, Good Color, Cyanosis (n), Jaundice (n) and Rash (n)
Labs/Micro/Reports
Lab Data
07/27/25 05:56
07/27/25 05:56
Microbiology
07/24/25 17:02 Nasal Swab Influenza Types A & B ([facility]) - Final
Negative for Influenza A & B, NAAT
Negative results must be combined with clinical observations
and patient history.
Nucleic Acid Amplification test (NAAT)performed on the
[employer] platform.
[2025-07-27 15:10] VITALS: BP 110/65
[2025-07-27] MEDS: ATARAX 25 MG PO (15:54)
[2025-07-27] MEDS: LOVENOX 30 MG SC (18:14)
[2025-07-27] MEDS: SPIRIVA RESPIMAT 2.5 MCG 2 PUFF INH (19:34)
[2025-07-27 23:04] VITALS: BP 110/62
--- NOTE | 2025-07-28 03:00 | DOWNTIME ---
There was a [employer] Client Operations Leader Downtime on 07/28/2025 from 0100 to 07/28/2025 at 0255. Downtime documentation of patient's care, including medication administrations, has been reconciled in the electronic record per guidelines. Refer to the
patient's paper chart under the miscellaneous tab to see printed paper medication records and downtime forms.
--- NOTE | 2025-07-28 07:28 | W.PN.HOSP.TC ---
Addendum entered and electronically signed by Raul Jaramillo MD 07/28/25 23:05:
Attending Addendum-
I saw and evaluated the patient. I reviewed the resident�s note and agree with findings and plan as documented in the resident�s note. Sub: mild LOPES but improved. cough improved, No fevers chills. Full 12 point ROS reviewed and negative except as
documented Exam: Vitals reviewed in chart GEN-NAD cachectic appearing heart RRR lungs decreased BS @ Bases No W/R/R Abd soft LE no edema
Plan:
#Acute COPD Exacerbation
-resolving
-saturating well on RA
-appreciate Pulmonary input
-Continue DuoNeb QID and PRN
-cont Prednisone with long taper on DC
-Continue Mucinex
#Anxiety / Depression
-Continue sertraline and hydroxyzine PRN
#Nicotine Dependence / Tobacco Use Disorder
-Encouraged smoking cessation
-Continue Nicotine Patch
# Severe PCM
- nutrition on board cont high caloric intake
- HIV-P, TSH-wnl
Dispo DC to SNF [facility]-new
Time spent coordinating care, DC planning, review of DC plan of care with resident, transition of care, review of records, med rec/scripts sent electronically, consults, notes, d/w consultants, nursing, and CM� 33mins >50% of this time was devoted
to counseling and coordination of care
Original Note:
Today's Communication/Plan
-
Discharge- Waiting for auth approval from .
Assessment / Plan
Assessment / Plan
A 64 y/o male presented with pmh of COPD chronic smoker, GERD, anxiety/depression who presented to ED on 07/24 with productive coughing of clear mucous and SOB. His breathing was getting worse since spring but he had difficulty to schedule an
appt with his Dr. He has been using his home inhalers without much improvement in his symptoms.
Acute COPD exacerbation with peripheral eosinophilia
-O2 sat on RA 94%
-Supplemental oxygen if needed
-eosinophil 9%
-Consult manager pe, input appreciated
-- Home O2 assessment prior to discharge, OUTPATIENT: he is at high risk of pulmonary hypertension- obtain echo, follow-up with them in the pulmonary office. He is due for updated PFTs +6 MWT. Pulmonary rehab.
-Decadron convert to prednisone 40 mg with slow taper in the next 24 hours. Taper 10mg down every 3 days.
-Continue Mucinex
-Transition to Symbicort (budesonide and formoterol) and Spiriva from DuoNeb and Budesonide
-Nasal swab Influenza types A &B NEG
-PT/OT eval- skilled rehab 1-2 hours/day
-improved
likely Severe Protein calorie malnutrition of chronic disease
-4 months ago his weight was 148 per pt. This would be 26.4% BW loss over 4 months
-Current BMI 15.2, 109lbs
-He lives alone and has difficulty to acces food, limited ADL
-Check HIV - pending
Chest Xray: Hyperinflated lungs. No acute pulmonary process
ECG: Sinus rhythm with premature atrial complexes
Anxiety/Depression
-Continue Sertraline and hydroxyzine prn
Nicotine Dependence / Tobacco use disorder
-He is trying to quit 7 cigarettes/day
-Encouraged smoking cessation
-Continue nicotine patch
DVT prophylaxis: Lovenox
Full code
Anticipated Discharge: Within 24 hours
Subjective/Interval History
-
Date of Service: July 28, 2025
He reports feeling good. He has been walking with a walker.
Objective Data
-
Labs:
Laboratory Results
07/28/25
06:55
WBC Pending
Hgb Pending
Hct Pending
Plt Count Pending
Sodium Pending
Potassium Pending
Chloride Pending
Carbon Dioxide Pending
BUN Pending
Creatinine Pending
Glucose Pending
Calcium Pending
Total Bilirubin Pending
AST Pending
ALT Pending
Alkaline Phosphatase Pending
Vital Signs:
Vital Signs
Temp Pulse Resp BP Pulse Ox
97.9 F 86 18 110/62 95
07/27/25 23:04 07/27/25 23:04 07/27/25 23:04 07/27/25 23:04 07/27/25 23:04
I&O
07/27/25 07/28/25 07/29/25
06:59 06:59 06:59
Intake Total 480 / 480 240 / 240
Output Total 200 / 200
Balance 280 / 280 240 / 240
Review of Systems
-
History Source: Patient
Constitutional: Reports No Symptoms
Respiratory: Reports Cough
Cardiac: Reports No Symptoms
Abdomen/GI: Reports No Symptoms
Breast: Reports No Symptoms
Genitourinary: Reports No Symptoms
Musculoskeletal: Reports No Symptoms
Skin: Reports No Symptoms
Neuro: Reports No Symptoms
Endocrine: Reports No Symptoms
Hematologic / Lymphatic: Reports No Symptoms
Allergy / Immunology: Reports No Symptoms
Physical Exam
-
General: No Apparent Distress, Conversant and Cachectic
HEENT: Normocephalic
Respiratory: Clear to Auscultation and Non Labored Respirations
Cardiac: Regular Rhythm and S1/S2
Breast: Deferred by me
GI: Soft, Nontender, Nondistended and Normal Bowel Sounds
Rectal: Deferred by Provider
Musculoskeletal: No Cyanosis and No Edema
Neuro: AO x 3
Psych: Calm
[2025-07-28 07:30] LABS: Hematocrit 41.4 % (39.0-52.0); Hemoglobin 13.8 g/dL (13.0-18.0); Mean Corp Hgb Conc. 33.3 g/dL (33.0-37.0); Mean Corpuscular Volume 93.9 fL (80.0-94.0); Platelet Count 258 10^3/uL (130-400); Red Cell Dist. Width 12.2 % (11.5-14.5)
[2025-07-28] MEDS: SYMBICORT 160/4.5 MCG INHALER 2 PUFF INH (07:32)
[2025-07-28 07:36] VITALS: BP 105/68
[2025-07-28 08:16] LABS: ALT (SGPT) 27 U/L (0-50); AST (SGOT) 28 U/L (17-59); Albumin 3.7 g/dl (3.5-5.0); Alkaline Phosphatase 56 U/L (38-126); Blood Urea Nitrogen 18 mg/dl (9-20); Calcium 9.0 mg/dl (8.4-10.2); Chloride 97 mmol/L (98-107); Estimated Creatinine Clearance 67 ml/min; Glucose 82 mg/dl (70-99); Potassium 4.8 mmol/L (3.5-5.1); Sodium 134 mmol/L (135-145); Total Protein 5.9 g/dl (6.3-8.2); eGFR > 60.00
--- NOTE | 2025-07-28 08:17 | CM ---
Late entry for 07/27/25
Chart reviewed. Met with patient at bedside. PT recommended SNF.PT is agreeable. A bed is available at [facility]. Auth submitted. No decision was made by 4:30 pm. Need to determine if patient qualifies for an ambulance. If he does,
authorization for an ambulance is needed. If patient has no funds, hospital will pay for a wheelchair van.
[facility] ([phone])in to interview pt. They will have a FED assessment performed ( has to do with functional status) to see if he qualifies for help in the home at no cost.
Plan: DC to [facility] once auth is approved.
[2025-07-28] MEDS: NICODERM TRANSDERMAL 14 MG TRANSDERM (09:11)
[2025-07-28] MEDS: ZOLOFT 100 MG PO (09:11)
[2025-07-28] MEDS: DELTASONE 40 MG PO (09:11)
[2025-07-28] MEDS: MUCINEX 600 MG PO (09:11)
--- NOTE | 2025-07-28 09:21 | W.PN.PUL.V3 ---
Today's Communication / Plan
-
Prednisone taper
Assess discharge supplemental oxygen needs
Symbicort and Spiriva
Smoking cessation counseling
Outpatient pulm evaluation
Assessment
-
Assessment: 64-year-old male with a past medical history of very severe COPD/bullous emphysema, history of asthma, history of pneumonia, history of colonic polyps, depression, hypertension, history of alcohol abuse and continued tobacco use who
presents with shortness of breath. He initially was afebrile in the ER, pulse rate 96, respiratory rate between 8 breaths/min, BP 128/71 and saturating 95% on room air. Initial labs with normal WBC at 6, Hb 13.1, absolute eosinophil count,
serum bicarbonate level: 36, troponin negative at <0.012, and proBNP 90.7. Flu swab found to be negative, and he was COVID-19 antigen negative. CXR showed no evidence of an acute pulmonary process. He was given DuoNebs in the ER, Solu-Medrol and
Ativan. Admitted to the hospitalist service for further care, and now pulmonary service consulted for additional management/recommendations.
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
Impression:
#Acute exacerbation of COPD
#Eosinophilia (absolute eosinophils: 500 on admission)
#Bullous emphysema with group E COPD, class IV
#Active tobacco use disorder (currently smokes 0.5 PPD and carries a 31-bsbm-bwkq history)
#History of alcohol mdajw-69-aabm-year smoker-ongoing
#History of pneumonia
Protein calorie malnutrition
Plan:
Respiratory decompensation due to COPD exacerbation
Supplemental oxygen if needed-currently on room air-94% saturation
Assess discharge supplemental oxygen needs prior to discharge-ambulated on room air 75 feet 07/27/2025 with a desaturation lawrence 93 and heart rate 110-130
Prednisone 40 mg daily with slow taper
Mucolytic's-Mucinex
Symbicort and Spiriva
Nebulizers as needed-currently not bronchospastic
Echocardiogram 07/26/2025-EF 70-75%, no regional wall motion abnormalities
Smoking cessation counseling ongoing
Nicotine patch
Follow hemoglobin
Transfuse as needed
Monitor blood sugar
Insulin supplementation as needed
Significant protein calorie malnutrition
HIV pending
DVT prophylaxis-on Lovenox
Nutrition
Early mobilization
The patient originally saw Dr. Timmons in December 2023 and then because of 'insurance issues' the patient switched to Dr. Lincoln was not seeing the patient officially yet-needs PFT, 6-minute walk test, low-dose lung cancer screening CT-next one due
September 2025, and consideration towards Biologics such as IL-5 inhibitors with significant eosinophilia-COPD/asthma overlap
Subjective Data
-
Date of Service:
Date of Service: July 28, 2025
Chief Complaint: Pulmonary Follow Up and Dyspnea Follow Up
Subjective:
Feels better, on room air, less dyspnea on exertion, no chest pain, productive cough, abdominal pain
Review of Systems
General: Other (Per HPI)
Objective Data
Data Reviewed
Vital Signs / I&O:
Vital Signs
Temp Pulse Resp BP Pulse Ox
98.7 F 82 20 105/68 96
07/28/25 07:36 07/28/25 07:36 07/28/25 07:36 07/28/25 07:36 07/28/25 07:36
Intake and Output
07/27/25 07/28/25 07/29/25
06:59 06:59 06:59
Intake Total 480 / 480 240 / 240
Output Total 200 / 200
Balance 280 / 280 240 / 240
SaO2: 96
Physical Exam
General: Respiratory Distress (n) and Comfortable
HEENT: Normocephalic, Anicteric and Moist Mucous Membranes
Cardiovascular: Regular Rhythm
Respiratory: Wheeze (n), Crackles (n), Rhonchi, Non-Labored Respirations, Accessory Resp Muscle Use (n) and Stridor
GI: Soft, Non Distended and Non Tender
Neurology: Awake, Alert and No Motor Deficits
Skin: Warm, Good Color, Cyanosis (n), Jaundice (n) and Rash (n)
Labs/Micro/Reports
Lab Data
07/28/25 06:55
07/28/25 06:55
[2025-07-28 09:22] LABS: Carbon Dioxide 35 mmol/L (22-30)
[2025-07-28 10:05] VITALS: BP 137/90; BP 138/83; PULSE 91; O2SAT 96
--- NOTE | 2025-07-28 13:37 | CM ---
indicated pt ready for discharge..
Spoke with Sebas Adhikari [facility] [phone] who will follow up with patient for setting up recourses. Nathaniel aware pt has auth to go to [facility] .
Called [facility] [phone] spoke with Glo she said auth approved for SNF from 07/27/25 to 08/26/25 Auth # [id number].
[facility] call [phone] ask for [employer] .Lisette [facility] aware.
[facility] transportation form completed To be set up by [facility]. As per [employer] CM Case management can pay for transportation to SNF.
[facility] Pt
[phone]
fax [phone]
PLAN To [facility] Pt today
--- NOTE | 2025-07-28 14:12 | W.DCSUMMARY ---
Addendum entered and electronically signed by Raul Jaramillo MD 07/28/25 23:06:
Read, reviewed, and agree. See same day progress note for additional details.
Jelani Jaramillo MD
Original Note:
Documented by User: Joe Quick MD, Resident 07/28/25 14:47
Discharge Summary
Discharge Data
Date of Admission: 07/24/25
Date of Discharge: 07/28/25
-
Pending Results: Yes
Additional Pending Results:
HIV
Hospital Course
Discharging Physician : Dr. Joe Quick, Dr. Raul Jaramillo
Disposition : SNF
Primary care physician : Elizabeth Deras
Principal Discharge diagnosis : Acute Chronic Pulmonary Obstuction Disease Exacerbation
Chronic Discharge diagnosis : COPD, Depression, Anxiety, Severe Protein calorie malnutrition of chronic disease
Hospital Course : Niall Campos is a 64 y/o male with a pmh of very severe COPD, anxiety, depression presented to ED with productive coughing of clear mucous and shortness of breath. He tried his Spiriva prior to arrival without significant
improvement. He was afebrile. Initial labs with normal WBC at 6, Hb 13.1, absolute eosinophil count 9%, serum bicarbonate level: 36, troponin negative at <0.012, and proBNP 90.7. Flu swab found to be negative, and he was COVID-19 antigen negative.
CXR showed no evidence of an acute pulmonary process. During his hospital stay he was given Dexamethasone 4mg IV BID currently on slow taper with 40mg Prednisone , mucolytics, symbicort and spirivia. His symptoms improved.
He is motivated to quit smoking. Encouraged smoking cessation and provided some Nicotine patches.
Please f/u with the pulmologist Dr. Cain in 1 to 2 weeks. He was recommended PFT, 6-minute walk test, low-dose lung cancer screening CT-next one due September 2025, and consideration towards Biologics such as IL-5 inhibitors with significant
eosinophilia-COPD.
Please follow up with your PCP Dr. Deras in a week.
Please continue to adhere to your Prednisone medication and taper it down 10mg every 3 days.
He has pending HIV test. Please follow the result.
imaging findings :
Chest Xray:
Hyperinflated lungs
No acute pulmonary process
Echo:
Technically limited study
Ejection fraction is 70-75% by visual assessment.
Normal left ventricular size, wall thickness and systolic function. No regional wall motion abnormalities are seen.
Procedure findings : None
Discharge Plan
-
Patient Disposition: Intermediate/SNF
Discharge Diagnosis/Procedures: Acute Chronic Obstructive Pulmonary Disease Exacerbation
Anxiety / Depression
Diet: No restrictions
Activity: No restrictions
Driving Restrictions: As prior to admission
Bathing Restrictions: None
Blood Work: HIV result is pending
Referrals:
Irma Cain, [Active, Pulmonary Medicine] - in one to two weeks
Elizabeth Deras CRNP [Family Provider, Family Practice] - in less than 1 week
Prescriptions:
New
nicotine 14 mg/24 hr Patch 24 Hour
14 mg transdermal DAILY Qty: 30 0RF
prednisone 10 mg Tablet
See Rx Instructions .ROUTE .COMPLEX Qty: 30 0RF
Rx Instructions:
Take By Mouth:
40 mg daily x3 days, 30 mg daily x3 days,
20 mg daily x3 days, 10 mg daily x3 days.
Continued
sertraline 100 mg Tablet
100 mg PO DAILY
ipratropium-albuterol 0.5 mg-3 mg(2.5 mg base)/3 mL Solution For Nebulization
3 ml inhalation R Q4HPRN PRN (Reason: SOB, COUGH, WHEEZE) Qty: 90 2RF
budesonide-formoterol [Symbicort] 160-4.5 mcg/actuation Hfa Aerosol Inhaler
2 puff inhalation R BID Qty: 10.2 2RF
diphenhydramine HCl 25 mg Tablet
25 mg PO DAILYPRN PRN (Reason: anxiety)
naproxen sodium [Aleve] 220 mg Tablet
440 mg PO DAILYPRN PRN (Reason: mild pain)
hydroxyzine HCl 25 mg tablet
25 mg PO DAILYPRN PRN (Reason: anxiety)
albuterol sulfate 90 mcg/actuation HFA aerosol inhaler
2 puff inhalation R Q6HPRN PRN (Reason: shortness of breath or wheezing)
Spiriva Respimat 1.25 mcg/actuation mist
2 puff INHALATION R QPM
Discharge Orders:
Discharge Patient (As Directed); Ordered 07/28/25
Ordered By: Joe Quick
Discharge Date and Time
Discharge Date/Time: 07/28/25 16:50
Print Language: LEBANESE

Documented by User: Raul Jaramillo MD 07/28/25 23:03
Discharge Summary
Discharge Data
Date of Admission: 07/24/25
Date of Discharge: 07/28/25
Discharge Plan
-
Patient Disposition: Intermediate/SNF
Discharge Diagnosis/Procedures: Acute Chronic Obstructive Pulmonary Disease Exacerbation
Anxiety / Depression
Diet: No restrictions
Activity: No restrictions
Driving Restrictions: As prior to admission
Bathing Restrictions: None
Blood Work: HIV result is pending
Referrals:
Irma Cain, DO [Active, Pulmonary Medicine] - in one to two weeks
Elizabeth Deras CRNP [Family Provider, Family Practice] - in less than 1 week
Prescriptions:
New
nicotine 14 mg/24 hr Patch 24 Hour
14 mg transdermal DAILY Qty: 30 0RF
prednisone 10 mg Tablet
See Rx Instructions .ROUTE .COMPLEX Qty: 30 0RF
Rx Instructions:
Take By Mouth:
40 mg daily x3 days, 30 mg daily x3 days,
20 mg daily x3 days, 10 mg daily x3 days.
Continued
sertraline 100 mg Tablet
100 mg PO DAILY
ipratropium-albuterol 0.5 mg-3 mg(2.5 mg base)/3 mL Solution For Nebulization
3 ml inhalation R Q4HPRN PRN (Reason: SOB, COUGH, WHEEZE) Qty: 90 2RF
budesonide-formoterol [Symbicort] 160-4.5 mcg/actuation Hfa Aerosol Inhaler
2 puff inhalation R BID Qty: 10.2 2RF
diphenhydramine HCl 25 mg Tablet
25 mg PO DAILYPRN PRN (Reason: anxiety)
naproxen sodium [Aleve] 220 mg Tablet
440 mg PO DAILYPRN PRN (Reason: mild pain)
hydroxyzine HCl 25 mg tablet
25 mg PO DAILYPRN PRN (Reason: anxiety)
albuterol sulfate 90 mcg/actuation HFA aerosol inhaler
2 puff inhalation R Q6HPRN PRN (Reason: shortness of breath or wheezing)
Spiriva Respimat 1.25 mcg/actuation mist
2 puff INHALATION R QPM
Discharge Orders:
Discharge Patient (As Directed); Ordered 07/28/25
Ordered By: Joe Quick
Discharge Date and Time
Discharge Date/Time: 07/28/25 16:50
Print Language: LEBANESE
[2025-07-28 15:04] VITALS: BP 135/84
[2025-07-28] MEDS: ATARAX 25 MG PO (15:21)
[2025-07-28] MEDS: FLUZONE (6 mos+) 2025-2026 FORMULA 0.5 ML IM (15:21)
== END 2025-07-28 16:50 | DRG 190 ==
LOC: 4 EAST ACU 18:32
PROVIDERS: Physician Assistant Medical; ADMITTING PHYSICIAN Hospitalist; ATTENDING PHYSICIAN Family Medicine; CONSULT PHYSICIAN Internal Medicine Critical Care Medicine; EMERGENCY PHYSICIAN Student in an Organized Health Care Education/Training Program; FAMILY PHYSICIAN Nurse Practitioner
PROC: 3E02340 Introduction of Influenza Vaccine into Muscle, Percutaneous Approach (ICD-10-PCS; 2025-07-28)
DX: J44.1 Chronic obstructive pulmonary disease with (acute) exacerbation (principal); E43 Unspecified severe protein-calorie malnutrition; Z68.1 Body mass index [BMI] 19.9 or less, adult; R64 Cachexia; K21.9 Gastro-esophageal reflux disease without esophagitis; F17.210 Nicotine dependence, cigarettes, uncomplicated; D72.10 Eosinophilia, unspecified; J43.9 Emphysema, unspecified; F41.9 Anxiety disorder, unspecified; F32.A Depression, unspecified; F10.10 Alcohol abuse, uncomplicated; I10 Essential (primary) hypertension; Z11.52 Encounter for screening for COVID-19; Z79.899 Other long term (current) drug therapy; Z87.01 Personal history of pneumonia (recurrent); Z23 Encounter for immunization; Z59.48 Other specified lack of adequate food
CPT/HCPCS: 71046; 80048; 80053; 83880; 84443; 84484; 85025; 85027; 87389; 87502; 87811; 90656; 93005; 93306; 94640; 96374; 97162; 97166; 97530; 99285; 99406; G0008

== ENCOUNTER 2025-08-25 01:44 | Inpatient (IN) | payer OTHER, SELFPAY ==
[2025-08-24 16:03] VITALS: BP 132/87
[2025-08-24 16:17] LABS: Hematocrit 42.3 % (39.0-52.0); Hemoglobin 14.6 g/dL (13.0-18.0); Mean Corp Hgb Conc. 34.5 g/dL (33.0-37.0); Mean Corpuscular Volume 88.7 fL (80.0-94.0); Nucleated Red Blood Cells % 0 % (-); Platelet Count 338 10^3/uL (130-400); Red Cell Dist. Width 12.3 % (11.5-14.5)
[2025-08-24 16:27] LABS: INR 1.01; PT 13.4 Sec (11.4-14.6)
[2025-08-24 16:36] LABS: ALT (SGPT) 23 U/L (0-50); AST (SGOT) 27 U/L (17-59); Albumin 4.4 g/dl (3.5-5.0); Alkaline Phosphatase 63 U/L (38-126); Blood Urea Nitrogen 17 mg/dl (9-20); Calcium 9.4 mg/dl (8.4-10.2); Carbon Dioxide 32 mmol/L (22-30); Chloride 95 mmol/L (98-107); Glucose 100 mg/dl (70-99); Potassium 4.6 mmol/L (3.5-5.1); Sodium 132 mmol/L (135-145); Total Protein 7.0 g/dl (6.3-8.2); eGFR > 60.00
[2025-08-24 16:43] LABS: Troponin I 0.014 ng/ml
[2025-08-24 21:24] VITALS: BMI 16.5
[2025-08-24 21:27] VITALS: BP 165/86
--- NOTE | 2025-08-24 21:40 | ED.GENMED ---
History of Present Illness
<Yesica Costa PA-C - Last Filed: 08/25/25 02:36>
General
Chief Complaint: Breathing Problem
Time Seen by Provider: 08/24/25 21:12
History of Present Illness
History of Present Illness:
see MDM
Past History
<Yesica Costa PA-C - Last Filed: 08/25/25 02:36>
Past History
ED Past Medical History: COPD (emphysema), GERD and Other (alcohol abuse)
ED Past Surgical History: None
Social History
Tobacco: Smoker
Alcohol: Chronic alcoholic
Drug: None
Personal: Single
Living: alone
Family History
Family History: CAD (DE)
Phy Exam
<Yesica Costa PA-C - Last Filed: 08/25/25 02:36>
Physical Exam
Physical Exam:
see MM\\DM
Scores
<Yesica Costa PA-C - Last Filed: 08/25/25 02:36>
Heart Failure Risk
Heart Failure Risk Score: Not Applicable
Course
<Yesica Costa PA-C - Last Filed: 08/25/25 02:36>
Orders/Labs/Results
Orders:
Orders
08/24/25 16:04
EKG [Electrocardiogram (*1)] Urgent
Reason for Study: Shortness of Breath
EKG- Treatment ONCE
08/24/25 16:09
Complete Blood Count/With Diff Urgent
Comprehensive Metabolic Panel Urgent
NT-proBNP Urgent
Prothrombin Time Urgent
Troponin I Urgent
08/24/25 21:33
Ipratropium/Albuterol Sulfate [Duoneb] 3 ml INH R NOW ONE
Ipratropium/Albuterol Sulfate [Duoneb] 3 ml INH R NOW ONE
Ipratropium/Albuterol Sulfate [Duoneb] 3 ml INH R NOW STA
08/24/25 21:34
Magnesium Sulfate 1 G/D5w [Magnesium Sulfate] 1 gm in 100 ml IV NOW
MethylPREDNISolone PF [Solu-Medrol Pf] 125 mg IV NOW STA
08/24/25 21:35
CR Chest Portable - 1 View Urgent
Comment:
Reason For Exam: sob
Reason Study Needs to be Portable: Patient Unstable
08/24/25 22:14
COVID-19 Antigen Urgent
Source: Nasal Swab
Influenza A+B Rapid Molecular Urgent
DONOVAN Source: Nasal Swab
Specimen Description:
08/25/25 01:37
Admit/Transfer Patient As Directed
Co-Sign Provider:
Level of Care: Inpatient admission
Assign to:: IMU- Intermediate Care
Physician / Group: Param
Diagnosis: AE-COPD
Reason for Hospitalization: AE-COPD
Expected length of stay greater than two midnights?: Yes
ELOS- Estimated Length of Stay in days: 3
I certify the patient meets the requirements for IP care: Yes
Code Status As Directed
Resuscitation Status: Full Code
PRN Pain Medication Management As Directed
May give lesser potent ordered pain med per pt: Yes
preference::
Protocol:: Medication orders for pain may be administered in a
manner that supports deferring to patient preference
when the pt is:
- Requesting an ordered lesser potent pain medication.
Least to most potent pain medications are defined
as: acetaminophen < NSAID < tramadol < opioids
(morphine, oxycodone, hydromorphone).
- Requesting a lesser dose of the same medication IF
ORDERED.
- Requesting a less intrusive route of administration
if both routes are prescribed by the provider (PO <
IV).
Abnormal Lab Results
08/24/25
16:09
Absolute Monos (auto) 0.9 H 10^3/uL
(0.1-0.6)
Lymphocytes % 17.8 L %
(20.5-51.1)
Monocytes % 10.2 H %
(1.7-9.3)
Sodium 132 L mmol/L
(135-145)
Chloride 95 L mmol/L
(98-107)
Carbon Dioxide 32 H mmol/L
(22-30)
Glucose 100 H mg/dl
(70-99)
08/24/25 16:09
08/24/25 16:09
Vital Signs
Initial and Last Documented VS:
Initial Vital Signs
Temp Pulse Resp BP Pulse Ox
37.1 C 95 17 132/87 90
08/24/25 16:03 08/24/25 16:03 08/24/25 16:03 08/24/25 16:03 08/24/25 16:03
Last Documented Vital Signs
Temp Pulse Resp BP Pulse Ox
37.1 C 90 28 122/72 98
08/24/25 16:03 08/25/25 02:00 08/25/25 02:00 08/25/25 01:00 08/25/25 02:00
<Raul Meza MD - Last Filed: 08/24/25 23:44>
Orders/Labs/Results
Orders:
Orders
08/24/25 16:04
EKG [Electrocardiogram (*1)] Urgent
Reason for Study: Shortness of Breath
EKG- Treatment ONCE
08/24/25 16:09
Complete Blood Count/With Diff Urgent
Comprehensive Metabolic Panel Urgent
NT-proBNP Urgent
Prothrombin Time Urgent
Troponin I Urgent
08/24/25 21:33
Ipratropium/Albuterol Sulfate [Duoneb] 3 ml INH R NOW ONE
Ipratropium/Albuterol Sulfate [Duoneb] 3 ml INH R NOW ONE
Ipratropium/Albuterol Sulfate [Duoneb] 3 ml INH R NOW STA
08/24/25 21:34
Magnesium Sulfate 1 G/D5w [Magnesium Sulfate] 1 gm in 100 ml IV NOW
MethylPREDNISolone PF [Solu-Medrol Pf] 125 mg IV NOW STA
08/24/25 21:35
CR Chest Portable - 1 View Urgent
Comment:
Reason For Exam: sob
Reason Study Needs to be Portable: Patient Unstable
08/24/25 22:14
COVID-19 Antigen Urgent
Source: Nasal Swab
Influenza A+B Rapid Molecular Urgent
DONOVAN Source: Nasal Swab
Specimen Description:
08/25/25 01:37
Admit/Transfer Patient As Directed
Co-Sign Provider:
Level of Care: Inpatient admission
Assign to:: IMU- Intermediate Care
Physician / Group: Param
Diagnosis: AE-COPD
Reason for Hospitalization: AE-COPD
Expected length of stay greater than two midnights?: Yes
ELOS- Estimated Length of Stay in days: 3
I certify the patient meets the requirements for IP care: Yes
Code Status As Directed
Resuscitation Status: Full Code
PRN Pain Medication Management As Directed
May give lesser potent ordered pain med per pt: Yes
preference::
Protocol:: Medication orders for pain may be administered in a
manner that supports deferring to patient preference
when the pt is:
- Requesting an ordered lesser potent pain medication.
Least to most potent pain medications are defined
as: acetaminophen < NSAID < tramadol < opioids
(morphine, oxycodone, hydromorphone).
- Requesting a lesser dose of the same medication IF
ORDERED.
- Requesting a less intrusive route of administration
if both routes are prescribed by the provider (PO <
IV).
Abnormal Lab Results
08/24/25
16:09
Absolute Monos (auto) 0.9 H 10^3/uL
(0.1-0.6)
Lymphocytes % 17.8 L %
(20.5-51.1)
Monocytes % 10.2 H %
(1.7-9.3)
Sodium 132 L mmol/L
(135-145)
Chloride 95 L mmol/L
(98-107)
Carbon Dioxide 32 H mmol/L
(22-30)
Glucose 100 H mg/dl
(70-99)
08/24/25 16:09
08/24/25 16:09
Vital Signs
Initial and Last Documented VS:
Initial Vital Signs
Temp Pulse Resp BP Pulse Ox
37.1 C 95 17 132/87 90
08/24/25 16:03 08/24/25 16:03 08/24/25 16:03 08/24/25 16:03 08/24/25 16:03
Last Documented Vital Signs
Temp Pulse Resp BP Pulse Ox
37.1 C 90 28 122/72 98
08/24/25 16:03 08/25/25 02:00 08/25/25 02:00 08/25/25 01:00 08/25/25 02:00
Julianlt;Yesica Costa PA-C - Last Filed: 08/25/25 02:36>
MDM/Problems Addressed
Differential Diagnosis Includes:
see MDM
MDM/Problems Addressed:
Note:
CHIEF COMPLAINT(S)
Shortness of breath.
HISTORY OF PRESENT ILLNESS
The patient is a 65-year-old male with a known history of chronic obstructive pulmonary disease (COPD), presenting with worsening shortness of breath over the past two days. He reports abnormal breathing, previously screened for at baseline home
oxygen levels greater than 95% on room air. Currently, his breathing is labored, and he experiences chills, which he describes as feeling cold.
The patient also notes increased shortness of breath starting acutely, which he describes as feeling 'awful.'He utilizes nebulizers but finds them less effective, and is prescribed Albuterol. However, he mentions multiple attempts using the
emergency inhaler with limited relief. The patient was recently discharged from the hospital after being admitted for COPD management and has only been home for two days. He was previously prescribed prednisone and currently questions if he is
supposed to be on it today.
He denies being currently on supplemental oxygen but was administered nebulizer treatments and steroids during his recent hospitalization. The patient received a flu vaccine this season and plans to get a booster shortly. Additionally, he describes
experiencing chest cramps upon deep breaths. There is no known history of deep vein thrombosis.
SOCIAL HISTORY
The patient currently smokes tobacco products.
PHYSICAL EXAM
GENERAL: Alert , tripoding, very tachypneic, thin, cachectic pink puffer
EYE: pupils equal and reactive
NECK: Supple
ENT: o/p clr, mmm.
CARDIAC: Regular rate and rhythm .
LUNGS: Very faint wheezes heard, not moving much air, extremely tachypneic, gasping, tripoding
ABDOMEN: Soft, without focal tenderness, no r/g, no cvat, normal bowel sounds
NEUROLOGICAL: Alert and oriented, no focal neuro deficits
SKIN: Warm and dry, skin intact.
MUSCULOSKELETAL: No edema, well perfused. neg suzie's sign
PSYCH: Normal and appropriate interaction.
- Nursing notes reviewed and vital signs reviewed.
PROBLEM LIST
- Acute: Exacerbation of chronic obstructive pulmonary disease.
- Chronic: Chronic obstructive pulmonary disease.
PLAN
- Administer DuoNeb (Albuterol and Ipratropium bromide) nebulizer treatment for symptomatic relief.
- Provide intravenous Magnesium as adjunctive therapy for airway relaxation.
- Review previously administered medication regimen, potential need for corticosteroids such as prednisone discussed.
DIFFERENTIAL DIAGNOSIS
The Differential Diagnosis includes, in no particular order and is not limited to:
1. Exacerbation of chronic obstructive pulmonary disease
2. Asthma exacerbation
3. Congestive heart failure
4. Pneumonia
5. Pulmonary embolism
6. Pneumothorax
7. Acute myocardial infarction
8. Acute bronchitis
9. Foreign body aspiration
10. Chronic bronchitis exacerbation
dustin wagner 65 y/o M smoker, copd no o2 at home
just admitted 2 weeks ago for same, copd exacerbation
no longer on steroids
hypoxic, tripoding, tachypneic, not tachy, not febrile
labs reviewed, cxr indep reviewed, no PNA, copd; requiring o2
bnp neg
low risk for PE
hour long duoneb, steroids, feels more comfortable, still dyspneic but not hypoxic on 4L
may consider ICU/risk of resp failure
<Yesica Costa PA-C - Last Filed: 08/25/25 02:36>
*Pulse Oximetry
SaO2: 94
Nasal Cannula flow liters per minute: 2
Oxygen Mode of Delivery: Room air
Patient hypoxic: yes (89)
*Critical Care Note
Total Time (30-74mins, 75-104mins- exclusive of procedures): Not Applicable
ED Attending Note
<Yesica Costa PA-C - Last Filed: 08/25/25 02:36>
-
Portions of this chart may have been created with voice recognition software.� Occasional wrong word or��sound alike� substitutions may have occurred due to the inherent limitations of voice recognition software.
<Raul Meza MD - Last Filed: 08/24/25 23:44>
ED Attending Note
Patient seen and examined by attending physician: Yes
ED Attending Note:
Patient with history of of COPD, presents to ED secondary to recurrent cough with shortness of breath over the past 3 days. Denies fever or chills. Denies chest pain. Denies nausea, vomiting, or diarrhea. Denies back pain. Denies leg pain or
swelling. Denies recent travel. Denies sick contact. Patient was admitted to the hospital 1 month ago for similar complaint. Today, patient states that his symptoms are similar to his previous admission.
Physical Exam
General: moderate respiratory distress, not acutely ill. afebrile
Head: nc/at. eomi
Neck: supple. normal range of motion
Heart: s1/s2 regular rate and rhythm.
Lungs: moderate respiratory distress. expiratory wheezing bilaterally with mild use of intercostal muscles
Abdomen: normal bowel sounds. not tender.
Neuro: alert and oriented x 3. no focal neurological deficits
Skin: no rash
Psychiatric: well kept. interactive and cooperative
Extremities: no edema. no calf tenderness.
Patient evaluated immediately upon arrival and started on hour-long continuous nebulizer treatment, along with IV steroids, with improvement in symptoms. However, patient does remain mildly tachypneic with continual wheezing, wiith concern for
potential respiratory failure. Patient will be admitted for further evaluation and treatment.
Discharge Plan
Departure
Patient Disposition: Admit
Date of Disposition: 08/24/25
Time of Disposition: 23:17
Admit to: IMU
Presentation/result/management discussed w/ accepting MD/DO: Hospitalist
Condition: Fair
Covid-19: Not Applicable
Discharge Problem:
COPD exacerbation, Smoker, Underweight
Interventions
Interventions:
*General Assessment Last Done: 08/24/25 16:02
*Neglect/Abuse Screening Last Done: 08/24/25 16:02
*ED COVID-19 Vaccine History Last Done: 08/24/25 16:02
*ED Influenza Vaccine History Last Done: 08/24/25 16:02
[facility] Fall Risk Assessment Tool Last Done: 08/24/25 21:25
*Risk Screen - Suicide (C-SSRS) Last Done: 08/24/25 16:02
ED- Cardiac Assessment Last Done: 08/24/25 21:30
ED- Pulmonary Assessment Last Done: 08/24/25 21:30
[2025-08-24] MEDS: DUONEB 3 ML INH ×3 (21:51→21:52)
[2025-08-24] MEDS: SOLU-MEDROL PF 125 MG IV (21:52)
[2025-08-24] MEDS: MAGNESIUM SULFATE 100 IV (21:53)
[2025-08-24 22:43] LABS: COVID-19 Antigen Negative (Negative)
[2025-08-24 23:09] VITALS: BP 134/72
[2025-08-25] VITALS (10 sets, daily range): BP systolic 98–143; BP diastolic 59–80; BMI 16.5
--- NOTE | 2025-08-25 01:39 | HPS.HSE ---
Family Physician
-
Family Physician: Elizabeth Deras
Chief Complaint
-
SOB
History of Present Illness
Patient is a 65y M with PMH significant for severe COPD who presents to ED complaining of SOB. Patient was hospitalized 07/17 - 07/28 secondary to similar symptoms. He was discharged to SNF and discharged back to home on 08/16. Patient states
that he has had continual dyspnea with activity throughout that time. He notes that he has been much more SOB over the past 3-4 days or so. Today he was trying to go to a follow-up doctor's appointment, but became severely SOB just walking through
his apartment building. 911 was called and patient was brought to the ED for further evaluation.
Medical History
Past Medical History
Past Medical History: Reports Other
Additional Past Medical History:
COPD
Alcohol Use Disorder
Anxiety/Depression
GERD
Past Surgical History: Reports None
Social History
Tobacco: Smoker
Alcohol: Former
Drug: None
Personal: Single
Living: Alone
Family History
Family History: Not pertinent
Allergies / Home Medications
Allergies reflects when Allergies were last updated in [employer].
Home Medications with original date entered in [facility]
Allergy/Medication List:
Allergies
Allergy/AdvReac Type Severity Reaction Status Date / Time
No Known Allergies Allergy Verified 08/24/25 16:02
Home Medications
sertraline 100 mg tablet 100 mg PO DAILY Mental Health/Anxiety 10/03/23
budesonide-formoterol HFA 160 mcg-4.5 mcg/actuation aerosol inhaler (Symbicort) 2 puff inhalation R BID #10.2 grams 10/13/23
ipratropium 0.5 mg-albuterol 3 mg (2.5 mg base)/3 mL nebulization soln 3 ml inhalation R Q4HPRN PRN SOB, COUGH, WHEEZE #90 mL 10/13/23
albuterol sulfate 90 mcg/actuation aerosol inhaler 2 puff inhalation R Q6HPRN PRN shortness of breath or wheezing 07/24/25
hydroxyzine HCl 25 mg tablet 25 mg PO DAILYPRN PRN anxiety 07/24/25
naproxen sodium 220 mg tablet (Aleve) 440 mg PO DAILYPRN PRN mild pain 07/24/25
tiotropium bromide 1.25 mcg/actuation mist for inhalation (Spiriva Respimat) 2 puff inhalation R QPM Lung/Breathing Issues 07/24/25
Review of Systems
-
History Source: Patient
A 12 point ROS was completed and negative except as noted: Yes
Constitutional: Reports Fatigue; Denies Fever or Chills
EENT: Denies Sore Throat
Respiratory: Reports Cough and Trouble Breathing; Denies Hemoptysis
Cardiac: Denies Chest Pain, Diaphoresis or Palpitations
Abdomen/GI: Denies Abdominal Pain, Nausea, Vomiting or Diarrhea
: Denies Dysuria or Frequency
Musculoskeletal: Denies Joint Pain or Edema
Neurological: Denies Dizzy or Headache
Physical Exam
Vital Signs
Vital Signs
Temp Pulse Resp BP Pulse Ox
98.7 F 87 27 143/73 96
08/24/25 16:03 08/25/25 00:45 08/25/25 00:45 08/25/25 00:00 08/25/25 00:45
Physical Exam
General: Other (Frail, cachectic 65y M in mild distress due to dyspnea / [id number])
HEENT: Moist mucous membranes and PERRLA
Respiratory: Other (Markedly diminished breath sounds throughout. Few faint squeaks / wheezes.)
Cardiac: S1/S2 and Regular Rhythm; No Murmur
GI: Soft, Non Tender, Non Distended and Normal Bowel Sounds
Musculoskeletal: No Clubbing, No Cyanosis and No Edema
Neuro: AO x 3
Laboratory Results
-
08/24/25 16:09
08/24/25 16:09
Laboratory Results
PT 13.4 Sec (11.4-14.6) 08/24/25 16:09
INR 1.01 08/24/25 16:09
Total Bilirubin 0.3 mg/dl (0.2-1.3) 08/24/25 16:09
AST 27 U/L (17-59) 08/24/25 16:09
ALT 23 U/L (0-50) 08/24/25 16:09
Alkaline Phosphatase 63 U/L (38-126) 08/24/25 16:09
Troponin I 0.014 ng/ml 08/24/25 16:09
Impression/Plan
-
A/P: Patient is a 65y M with PMH significant for severe COPD who presents to ED for evaluation of worsening SOB over the past few days.
AE-COPD
- Admit for further evaluation and treatment.
- Markedly diminished breath sounds on exam. Significant hyperinflation on CXR without new opacity, infiltrate, etc.
- Continue IV steroids, nebs, O2 support, etc.
- Follow for clinical improvement.
- Pulmonary re-evaluation for additional recommendations.
Anxiety / Depression
- Stable. Continue home medications.
DVT Prophylaxis: Lovenox
Code Status: Full
[2025-08-25 05:01] LABS: Hematocrit 39.7 % (39.0-52.0); Hemoglobin 13.7 g/dL (13.0-18.0); Mean Corp Hgb Conc. 34.5 g/dL (33.0-37.0); Mean Corpuscular Volume 90.2 fL (80.0-94.0); Platelet Count 316 10^3/uL (130-400); Red Cell Dist. Width 12.1 % (11.5-14.5)
[2025-08-25 05:23] LABS: Blood Urea Nitrogen 17 mg/dl (9-20); Calcium 9.2 mg/dl (8.4-10.2); Carbon Dioxide 32 mmol/L (22-30); Chloride 97 mmol/L (98-107); Estimated Creatinine Clearance 95 ml/min; Glucose 134 mg/dl (70-99); Potassium 5.6 mmol/L (3.5-5.1); Sodium 132 mmol/L (135-145); eGFR > 60.00
[2025-08-25] MEDS: DECADRON 4 MG IV ×3 (06:08→21:46)
[2025-08-25] MEDS: DUONEB 3 ML INH ×3 (08:44→19:36)
[2025-08-25] MEDS: PULMICORT 0.5 MG INH ×2 (08:44→19:36)
[2025-08-25] MEDS: ZOLOFT 100 MG PO (08:54)
[2025-08-25] MEDS: MUCINEX 1200 MG PO ×2 (08:54→20:32)
--- NOTE | 2025-08-25 09:11 | VNURNOTE ---
Addendum entered by Mervat Saavedra RN 08/25/25 09:15:
Viry Baker was the GERIATRIC NURSE PRACTITIONER he was supposed to see at [facility]. phone number [phone]. he will need to set up new appt upon discharge from the hospital.
Original Note:
Chart reviewed. EXTENSION CLERK [facility] was scheduled to start services after pt established a PCP. Pt had an appt 08/24 with [facility] (Drs who make house calls) but had to cancel appt d/t worsening dyspnea and came to [facility].
If DC plan is back home w/HH, would need a new referral for [facility] and would need to be seen by PCP before [facility] could start services. Liaison will follow along.
--- NOTE | 2025-08-25 09:21 | CON.PUL ---
Consultation
Consultation Request
Date/Time Consultation Requested: 08/25/25
Date/Time Consultation Performed: 08/25/25
Performing Provider: Ant
Reason for Consultation: AE COPD
Medical History
-
History of Present Illness:
Patient is a 65 year old M with PMH significant for severe COPD who presents to ED complaining of SOB. Patient was hospitalized 07/17 - 07/28 secondary to similar symptoms. He was discharged to SNF and discharged back to home on 08/16. Patient
states that he has had continual dyspnea with activity throughout that time. He notes that he has been much more SOB over the past 3-4 days or so. Today he was trying to go to a follow-up doctor's appointment, but became severely SOB just walking
through his apartment building. 911 was called and patient was brought to the ED for further evaluation. Chest x-ray negative, he is admitted for AECOPD and placed on IV steroids.
Past Medical History
Past Medical History: Other (see list)
Social History
Tobacco: Former Smoker
Alcohol: None
Drug: None
Family History
Family History: Reviewed & Not Pertinent
Allergies / Home Medications
Allergies
Allergy/AdvReac Type Severity Reaction Status Date / Time
No Known Allergies Allergy Verified 08/24/25 16:02
Home Medications
�Medication �Instructions �Recorded �Confirmed �Last Taken �Type
sertraline 100 mg tablet 100 mg PO DAILY Mental 10/03/23 08/25/25 07/24/25 History
Health/Anxiety
budesonide-formoterol HFA 160 2 puff inhalation R BID #10.2 grams 10/13/23 08/25/25 07/24/25 Rx
mcg-4.5 mcg/actuation aerosol
inhaler (Symbicort)
ipratropium 0.5 mg-albuterol 3 mg 3 ml inhalation R Q4HPRN PRN SOB, 10/13/23 08/25/25 07/23/25 Rx
(2.5 mg base)/3 mL nebulization COUGH, WHEEZE #90 mL
soln
albuterol sulfate 90 mcg/actuation 2 puff inhalation R Q6HPRN PRN 07/24/25 08/25/25 Unknown History
aerosol inhaler shortness of breath or wheezing
naproxen sodium 220 mg tablet 440 mg PO DAILYPRN PRN mild pain 07/24/25 08/25/25 Unknown History
(Aleve)
tiotropium bromide 1.25 2 puff inhalation R QPM 07/24/25 08/25/25 07/24/25 History
mcg/actuation mist for inhalation Lung/Breathing Issues
(Spiriva Respimat)
folic acid 1 mg tablet 1 mg PO DAILY 08/25/25 08/25/25 Unknown History
nicotine 14 mg/24 hr daily 1 patch transdermal DAILY 08/25/25 08/25/25 Unknown History
transdermal patch
thiamine HCl (vitamin B1) 100 mg 100 mg PO DAILY 08/25/25 08/25/25 Unknown History
tablet
Review of Systems
-
History Source: Patient
All other systems: Negative unless noted
Vitals / Labs / Diagnostic Testing
Vital Signs
Temp Pulse Resp BP Pulse Ox
97.3 F 90 18 129/78 95
08/25/25 07:11 08/25/25 08:46 08/25/25 08:46 08/25/25 07:00 08/25/25 08:46
Lab Data
08/25/25 04:53
08/25/25 04:53
Laboratory Results
08/24/25
16:09
PT 13.4
INR 1.01
Microbiology
08/24/25 22:14 Nasal Swab Influenza Types A & B (NELSON) - Final
Negative for Influenza A & B, NAAT
Negative results must be combined with clinical observations
and patient history.
Nucleic Acid Amplification test (NAAT)performed on the
[email or web address] platform.
Diagnostic Testing:
Physical Exam
-
HEENT: Normocephalic, Anicteric and Moist Mucous Membranes
Cardiovascular: S1/S2 and Regular Rhythm
Respiratory: Clear (overall decreased with poor air movement) and Non-Labored Respirations
GI: Soft, Non Distended and Non Tender
Neurology: Awake, Alert, Oriented and No Motor Deficits
Skin: Warm, Dry and Good Color
General: Comfortable and Other (thin appearing)
Assessment
-
Patient is a 65 year old M with PMH significant for severe COPD who presents to ED complaining of SOB. Patient was hospitalized 07/17 - 07/28 secondary to similar symptoms. He was discharged to SNF and discharged back to home on 08/16. Patient
states that he has had continual dyspnea with activity throughout that time. He notes that he has been much more SOB over the past 3-4 days or so. Today he was trying to go to a follow-up doctor's appointment, but became severely SOB just walking
through his apartment building. 911 was called and patient was brought to the ED for further evaluation. Chest x-ray negative, he is admitted for AECOPD and placed on IV steroids. We are consulted for evaluation.
AECOPD
Hyponatremia
Hyperkalemia
Suspect chronic CO2 retention
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
COPD, severe on symbicort/spiriva- Stage IV
Follows w/ [facility], severe obstruction FEV1 28% 2023
Not on home O2
Eosinophilia (absolute eosinophils: 500 on admission)
Bullous emphysema with group E COPD, class IV
Active tobacco use disorder (currently smokes 0.5 PPD and carries a 37-[id number]-[id number] history)
History of alcohol abuse
History of pneumonia
Depression
Reported h/o HTN in previous ER encounters
Plan
Hypoxemia noted on arrival, currently on 3 L
No oxygen was needed on prior walk testing at baseline
Home O2 evaluation eventually
Prior history of lung disease is noted including severe COPD, FEV1 28%
I reviewed his lung staging, stage IV--he notes he was unaware
He has had frequent exacerbations last admission discharge 07/28/25, prior to that 10/13/2023
He notes that he does not recall having prednisone in between flares
He is still smoking
Follow-up to our office has been difficult due to insurance and transportation
Suspect patient has AECOPD, agree with IV steroids
CXR/CT obtained indicating no acute findings
Other imaging reviewed-LDCT in past negative though he is at high risk for development of malignancy
Continue nebulizers while inpatient
Transition to home inhalers when able
proBNP on admission negative
Prior ECHO results are reviewed indicating stable function
Does not appear to be in concurrent heart failure
Smoking history noted-ongoing use
Smoking cessation recommended
Weight loss noted, BMI 16
He has evidence of severe protein malnutrition with pulmonary cachexia
Optimize nutrition
Will need outpatient pulmonary evaluation in our office for PFTs and 6MWT
Reviewed with patient
He may have chronic CO2 retention, obtain baseline ABG
Risk factors assessed for underlying sleep disordered breathing also noted, recommend outpatient PSG/sleep evaluation
We will follow
Diagnostic Data
Chest X-Ray: 08/24/25-No acute cardiopulmonary abnormality.
07/24/25- Hyperinflated lungs. No acute pulmonary process.
CT Scan: LDCT 10/02/24-No pulmonary nodules identified.
Echo: 07/26/25--1. Technically limited study.
2. Ejection fraction is 70-75% by visual assessment.
3. Normal left ventricular size, wall thickness and systolic function. No regional wall motion abnormalities are seen.
PFT's:
Reports and relevant images were personally reviewed.
Total time spent on this consultation __75__ minutes which includes review of history, physical exam, medications, laboratory data, personal review of imaging, extensive review of outpatient records, discussion with care team and respiratory therapy.
[2025-08-25] MEDS: CALCIUM GLUCONATE 1000 MG IV (09:56)
[2025-08-25] MEDS: VENTOLIN NEBULES 2.5 MG INH (10:07)
--- NOTE | 2025-08-25 10:22 | RESPNOTE ---
Respiratory: patient given 10 mg Albuterol nebulizer 2 1007, lungs decreased but with good aeration. HR 96-98 thus far.
[2025-08-25] MEDS: DUONEB INH (11:48)
--- NOTE | 2025-08-25 13:42 | W.PN.UPDATE ---
Update Note
Progress Note Update
on 2l nc
still with decreased breath sounds and end expiratory wheezing
nebs and steroids
incentive doreen and acapella
[2025-08-25 16:31] LABS: B.E. 4.0 mmol/L; HCO3 30.2 mmol/L (21-28); O2 Saturation % 94.5 % (94-98); PCO2 51 mmHg (35-48); PO2 69 mmHg (83-108)
[2025-08-25] MEDS: LOVENOX SC (17:21)
[2025-08-25] MEDS: ATARAX 25 MG PO (20:45)
[2025-08-25] MEDS: TYLENOL 650 MG PO (20:45)
[2025-08-26] MEDS: DECADRON 4 MG IV ×3 (05:22→20:55)
[2025-08-26 06:00] VITALS: BMI 15.8
[2025-08-26 07:00] LABS: Blood Urea Nitrogen 15 mg/dl (9-20); Calcium 9.0 mg/dl (8.4-10.2); Carbon Dioxide 35 mmol/L (22-30); Chloride 94 mmol/L (98-107); Estimated Creatinine Clearance 95 ml/min; Glucose 111 mg/dl (70-99); Potassium 4.7 mmol/L (3.5-5.1); Sodium 131 mmol/L (135-145); eGFR > 60.00
[2025-08-26] MEDS: PULMICORT 0.5 MG INH ×2 (07:37→19:52)
[2025-08-26] MEDS: DUONEB 3 ML INH ×4 (07:37→19:52)
[2025-08-26 07:40] VITALS: BP 101/63
[2025-08-26] MEDS: ZOLOFT 100 MG PO (08:38)
[2025-08-26] MEDS: MUCINEX 1200 MG PO ×2 (08:38→20:46)
--- NOTE | 2025-08-26 09:39 | W.PN.PUL3 ---
Today's Communication / Plan
-
Remains on 2 L nasal cannula, eventual home O2 evaluation needed
Productive mucus, can send for culture
ABG reviewed with chronic CO2 retention, trial BiPAP tonight
If tolerating, can arrange home set up
Continue IV steroids
Assessment
-
Patient is a 65 year old M with PMH significant for severe COPD who presents to ED complaining of SOB. Patient was hospitalized 07/17 - 07/28 secondary to similar symptoms. He was discharged to SNF and discharged back to home on 08/16. Patient
states that he has had continual dyspnea with activity throughout that time. He notes that he has been much more SOB over the past 3-4 days or so. Today he was trying to go to a follow-up doctor's appointment, but became severely SOB just walking
through his apartment building. 911 was called and patient was brought to the ED for further evaluation. Chest x-ray negative, he is admitted for AECOPD and placed on IV steroids. We are consulted for evaluation.
AECOPD
Hyponatremia
Hyperkalemia
Chronic hypercarbic respiratory failure, 7.
Severe protein calorie malnutrition/pulmonary cachexia
Productive sputum/cough
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
COPD, severe on symbicort/spiriva- Stage IV
Follows w/ [facility], severe obstruction FEV1 28% 2023
Not on home O2
Eosinophilia (absolute eosinophils: 500 on admission)
Bullous emphysema with group E COPD, class IV
Active tobacco use disorder (currently smokes 0.5 PPD and carries a 08-fqdd-uerl history)
History of alcohol abuse
History of pneumonia
Depression
Reported h/o HTN in previous ER encounters
Plan
Hypoxemia noted on arrival, initially on 3 L--weaned to 2 L
No oxygen was needed on prior walk testing at baseline
Home O2 evaluation eventually
Prior history of lung disease is noted including severe COPD, FEV1 28%--end-stage
I reviewed his lung staging, stage IV--he notes he was unaware
He has had frequent exacerbations last admission discharge 07/28/25, prior to that 10/13/2023
He notes that he does not recall having prednisone in between flares
He is still smoking
Follow-up to our office has been difficult due to insurance and transportation
Suspect patient has AECOPD, agree with IV steroids
CXR/CT obtained indicating no acute findings
Other imaging reviewed-LDCT in past negative though he is at high risk for development of malignancy
Continue nebulizers while inpatient
Transition to home inhalers when able
proBNP on admission negative
Prior ECHO results are reviewed indicating stable function
Does not appear to be in concurrent heart failure
Smoking history noted-ongoing use
Smoking cessation recommended
Weight loss noted, BMI 16
He has evidence of severe protein malnutrition with pulmonary cachexia
Optimize nutrition
He may have chronic CO2 retention, obtain baseline ABG--7.38/51
Evidence of chronic CO2 retention, will trial BiPAP nightly
If tolerating, will arrange for home set up
Will need outpatient pulmonary evaluation in our office for PFTs and 6MWT
Reviewed with patient
Diagnostic Data
Chest X-Ray: 08/24/25-No acute cardiopulmonary abnormality.
07/24/25- Hyperinflated lungs. No acute pulmonary process.
CT Scan: LDCT 10/02/24-No pulmonary nodules identified.
Echo: 07/26/25--1. Technically limited study.
2. Ejection fraction is 70-75% by visual assessment.
3. Normal left ventricular size, wall thickness and systolic function. No regional wall motion abnormalities are seen.
PFT's:
Reports and relevant images were personally reviewed.
Total time spent on this consultation __51__ minutes which includes review of history, physical exam, medications, laboratory data, personal review of imaging, extensive review of outpatient records, discussion with care team and respiratory therapy.
Subjective Data
-
Date of Service:
Date of Service: August 26, 2025
Chief Complaint: Pulmonary Follow Up
Subjective:
Feeling slightly better but overall not significantly improved
97% on 2 L
Objective Data
Data Reviewed
Vital Signs / I&O / Oxygen:
Vital Signs
Temp Pulse Resp BP Pulse Ox
98.1 F 96 18 101/63 92
08/26/25 07:40 08/26/25 07:43 08/26/25 07:43 08/26/25 07:40 08/26/25 07:43
Intake and Output
08/25/25 08/26/25 08/27/25
06:59 06:59 06:59
Intake Total 680 / 680
Output Total 875 / 875
Balance -195 / -195
SaO2 92
Nasal Cannula flow liters per 2.5
minute
Physical Exam
General: Comfortable, Good Appetite and Other (Thin appearing, cachectic)
HEENT: Normocephalic, Anicteric and Moist Mucous Membranes
Cardiovascular: S1-S2 and Regular Rhythm
Respiratory: Accessory Resp Muscle Use (Mild with conversation) and Other (Barrel chested, poor air movement)
GI: Soft, Non Distended and Non Tender
Neurology: Awake, Alert, Oriented and No Motor Deficits
Skin: Warm, Dry and Good Color
Labs/Micro/Reports
Lab Data
08/25/25 04:53
08/26/25 06:23
Laboratory Results
08/25/25
16:25
pH 7.38
pCO2 51 H
pO2 69 L
HCO3 30.2 H
O2 Delivery Level
Microbiology
08/24/25 22:14 Nasal Swab Influenza Types A & B (NELSON) - Final
Negative for Influenza A & B, NAAT
Negative results must be combined with clinical observations
and patient history.
Nucleic Acid Amplification test (NAAT)performed on the
[employer] platform.
--- NOTE | 2025-08-26 13:48 | W.PN.HOSP.TC ---
Today's Communication/Plan
-
Assessment / Plan
Assessment / Plan
Acute COPD exacerbation complicated by acute hypoxemic respiratory failure
Wean oxygen as tolerated
Goal SpO2 88 to 92%
IV steroids
DuoNebs
Incentive spirometer
Pulmonary
Severe protein calorie much nutrition in setting of pulmonary cachexia
Ensures 3 times daily with meals
Anxiety depression
Continue home medication
Anticipated Discharge: 24 - 48 hours
Subjective/Interval History
-
Date of Service: August 26, 2025
Seen and examined. No new complaints. No acute overnight events.
Objective Data
-
Labs:
Laboratory Results
08/26/25
06:23
Sodium 131 L
Potassium 4.7
Chloride 94 L
Carbon Dioxide 35 H
BUN 15
Creatinine 0.6 L
Glucose 111 H
Calcium 9.0
Vital Signs:
Vital Signs
Temp Pulse Resp BP Pulse Ox
98.1 F 18 18 101/63 97
08/26/25 07:40 08/26/25 11:06 08/26/25 07:43 08/26/25 07:40 08/26/25 08:15
I&O
08/25/25 08/26/25 08/27/25
06:59 06:59 06:59
Intake Total 680 / 680
Output Total 875 / 875
Balance -195 / -195
Physical Exam
-
General: Well Developed, Well Nourished and No Apparent Distress
HEENT: Normocephalic and Atraumatic
Respiratory: Wheezes, Non Labored Respirations and Decreased Breath Sounds
Cardiac: Regular Rhythm and S1/S2
GI: Soft, Nontender and Nondistended
Genito-urinary: No Costovertebral Tender
Musculoskeletal: No Clubbing, No Cyanosis and No Edema
Neuro: Awake and AO x 3
Psych: Calm
[2025-08-26 15:57] VITALS: BP 130/69
[2025-08-26] MEDS: LOVENOX 40 MG SC (17:14)
--- NOTE | 2025-08-26 18:13 | CM ---
CM consult. Pt denies any suicidal thoughts. Pt states he is not depressed. Resources are available if needed.
Plan DC to home with VN vs SNF
--- NOTE | 2025-08-26 18:18 | CM ---
IA completed, was independent prior to last time he was [facility]. Lives alone in an apartment .No insecurities identified. PCP, Rx, insurance and drug coverage confirmed
PCP: Facundo Chung
RX: [facility] and [facility]
Hx of DME: just started using [facility] and has [facility]PC.
Hx of home O2 in the past but told he no longer needed it
Hx of HC with [facility] after a previous hospitalization
Plan: Home with services as need. Will follow for DC needs
[2025-08-26 19:05] LABS: Hepatitis C Antibody Negative (Negative)
[2025-08-26 22:21] VITALS: PULSE 89
[2025-08-26 23:15] VITALS: BP 118/62
[2025-08-27 03:57] VITALS: PULSE 2; PULSE 88
[2025-08-27] MEDS: DECADRON 4 MG IV ×2 (05:19→13:36)
[2025-08-27 06:00] VITALS: BMI 15.9
[2025-08-27] MEDS: PULMICORT 0.5 MG INH ×2 (07:08→21:14)
[2025-08-27] MEDS: DUONEB 3 ML INH ×4 (07:09→21:14)
[2025-08-27 07:25] VITALS: BP 111/63
[2025-08-27 08:34] LABS: Hematocrit 37.1 % (39.0-52.0); Hemoglobin 12.5 g/dL (13.0-18.0); Mean Corp Hgb Conc. 33.7 g/dL (33.0-37.0); Mean Corpuscular Volume 92.5 fL (80.0-94.0); Platelet Count 308 10^3/uL (130-400); Red Cell Dist. Width 12.6 % (11.5-14.5)
[2025-08-27] MEDS: MUCINEX 1200 MG PO ×2 (08:45→19:49)
[2025-08-27] MEDS: ZOLOFT 100 MG PO (08:45)
[2025-08-27 09:01] LABS: Blood Urea Nitrogen 19 mg/dl (9-20); Calcium 9.0 mg/dl (8.4-10.2); Carbon Dioxide 35 mmol/L (22-30); Chloride 90 mmol/L (98-107); Estimated Creatinine Clearance 69 ml/min; Glucose 94 mg/dl (70-99); Potassium 4.5 mmol/L (3.5-5.1); Sodium 133 mmol/L (135-145); eGFR > 60.00
--- NOTE | 2025-08-27 09:22 | W.PN.PUL3 ---
Today's Communication / Plan
-
Prednisone taper to 10mg chronic use daily, instructed not to wean off
Tolerated BIPAP, home set up
Home O2 eval
OP FU recommended, we will arrange
Discharge planning per team pending home arrangements
Assessment
-
Patient is a 65 year old M with PMH significant for severe COPD who presents to ED complaining of SOB. Patient was hospitalized 07/17 - 07/28 secondary to similar symptoms. He was discharged to SNF and discharged back to home on 08/16. Patient
states that he has had continual dyspnea with activity throughout that time. He notes that he has been much more SOB over the past 3-4 days or so. Today he was trying to go to a follow-up doctor's appointment, but became severely SOB just walking
through his apartment building. 911 was called and patient was brought to the ED for further evaluation. Chest x-ray negative, he is admitted for AECOPD and placed on IV steroids. We are consulted for evaluation.
AECOPD
Hyponatremia
Hyperkalemia
Chronic hypercarbic respiratory failure, 7.
Severe protein calorie malnutrition/pulmonary cachexia
Productive sputum/cough
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
COPD, severe on symbicort/spiriva- Stage IV
Follows w/ [facility], severe obstruction FEV1 28% 2023
Not on home O2
Eosinophilia (absolute eosinophils: 500 on admission)
Bullous emphysema with group E COPD, class IV
Active tobacco use disorder (currently smokes 0.5 PPD and carries a 01-omcr-jwzw history)
History of alcohol abuse
History of pneumonia
Depression
Reported h/o HTN in previous ER encounters
Plan
Hypoxemia noted on arrival, initially on 3 L--weaned to 2 L
No oxygen was needed on prior walk testing at baseline
Home O2 evaluation eventually
Prior history of lung disease is noted including severe COPD, FEV1 28%--end-stage
I reviewed his lung staging, stage IV--he notes he was unaware
He has had frequent exacerbations last admission discharge 07/28/25, prior to that 10/13/2023
He notes that he does not recall having prednisone in between flares
He is still smoking
Follow-up to our office has been difficult due to insurance and transportation
Suspect patient has AECOPD, agree with IV steroids
CXR/CT obtained indicating no acute findings
Other imaging reviewed-LDCT in past negative though he is at high risk for development of malignancy
Continue nebulizers while inpatient
Transition to home inhalers when able
proBNP on admission negative
Prior ECHO results are reviewed indicating stable function
Does not appear to be in concurrent heart failure
Smoking history noted-ongoing use
Smoking cessation recommended
Weight loss noted, BMI 16
He has evidence of severe protein malnutrition with pulmonary cachexia
Optimize nutrition
He may have chronic CO2 retention, obtain baseline ABG--7.38/51
Evidence of chronic CO2 retention, will trial BiPAP nightly
Arrange for home set up
Will need outpatient pulmonary evaluation in our office for PFTs and 6MWT
Reviewed with patient
Diagnostic Data
Chest X-Ray: 08/24/25-No acute cardiopulmonary abnormality.
07/24/25- Hyperinflated lungs. No acute pulmonary process.
CT Scan: LDCT 10/02/24-No pulmonary nodules identified.
Echo: 07/26/25--1. Technically limited study.
2. Ejection fraction is 70-75% by visual assessment.
3. Normal left ventricular size, wall thickness and systolic function. No regional wall motion abnormalities are seen.
PFT's:
Reports and relevant images were personally reviewed.
Total time spent on this consultation __51__ minutes which includes review of history, physical exam, medications, laboratory data, personal review of imaging, extensive review of outpatient records, discussion with care team and respiratory therapy.
Subjective Data
-
Date of Service:
Date of Service: August 27, 2025
Chief Complaint: Pulmonary Follow Up
Subjective:
Tolerated BIPAP, feels slightly better but not ready to go home
Objective Data
Data Reviewed
Vital Signs / I&O / Oxygen:
Vital Signs
Temp Pulse Resp BP Pulse Ox
97.5 F 75 16 111/63 98
08/27/25 07:25 08/27/25 07:25 08/27/25 07:25 08/27/25 07:25 08/27/25 07:25
Intake and Output
08/26/25 08/27/25 08/28/25
06:59 06:59 06:59
Intake Total 680 / 680 1440 / 1440
Output Total 875 / 875 1300 / 1300
Balance -195 / -195 140 / 140
SaO2 98
Nasal Cannula flow liters per 2
minute
Physical Exam
General: Comfortable, Good Appetite and Other (Thin appearing, cachectic)
HEENT: Normocephalic, Anicteric and Moist Mucous Membranes
Cardiovascular: S1-S2 and Regular Rhythm
Respiratory: Accessory Resp Muscle Use (Mild with conversation) and Other (Barrel chested, poor air movement)
GI: Soft, Non Distended and Non Tender
Neurology: Awake, Alert, Oriented and No Motor Deficits
Skin: Warm, Dry and Good Color
Labs/Micro/Reports
Lab Data
08/27/25 07:26
08/27/25 07:26
Microbiology
08/26/25 16:16 Sputum Gram Stain - Preliminary
08/24/25 22:14 Nasal Swab Influenza Types A & B (NELSON) - Final
Negative for Influenza A & B, NAAT
Negative results must be combined with clinical observations
and patient history.
Nucleic Acid Amplification test (NAAT)performed on the
[employer] platform.
--- NOTE | 2025-08-27 10:52 | CM ---
Addendum entered by Veena Shah 08/27/25 17:15:
The pt's home O2 need has increased to adding 2LPM continuously to BiPap at night, per Dr Webb. All order forms faxed to [facility] at [facility]. Unable to coordinate delivery of O2 and Bipap tonight.
CM will have to coordinate O2 delivery and BiPap set up tomorrow. [facility] at [facility] (ph) [phone]. Pt will qualify for an ambulance because his O2 is new.The patient has a security code to get into the apartment that he can give to the ambulance
crew to get him in the building
Plan: Home tomorrow with continuous O2 and BiPap at night.
Addendum entered by Veena Shah 08/27/25 15:11:
CM is setting up home BiPap with [facility]
Pt is discharged to home
Original Note:
Met with pt bedside and he accepted list of counseling resources. Is asking to speak with the [facility]. Pt tolerated BiPap overnight
Plan: Home with BiPap.
--- NOTE | 2025-08-27 12:45 | W.DCSUMMARY ---
Addendum entered and electronically signed by Charles Webb MD 08/27/25 16:14:
At rest 93%. With ambulation 88-87% improves with 2 L nasal cannula. Are on breathing therapy for COPD has end-stage COPD. Nebulizers not helping to recover hypoxemia. Qualifies for home oxygen with the diagnosis of end-stage COPD with now
chronic hypoxemia
Goal SpO2 88 to 92%
Original Note:
Discharge Summary
Discharge Data
Date of Admission: 08/25/25
Date of Discharge: 08/27/25
-
Pending Results: No
Hospital Course
65 M hx of end stage copd, alcohol use disorder, anxiety/depression
Presented with shortness of breath wheezing and decreased breath sounds. Consistent with COPD exacerbation. Sputum culture preliminary without growth apart from normal rachelle. Requiring supplemental oxygen. Was noted to have chronic hypercapnic
respiratory failure and pulmonary recommended initiation of BiPAP for which there is plans to continue BiPAP/bilevel support at home for sleeping and during naps. Continue breathing therapies along with steroids. Spoke with pulmonary recommend
tapering from 40 mg to 10 mg over 7 to 10 days followed by 10 mg indefinitely until seen by outpatient special needs bus driver.
I discussed with pulmonary no indication for azithromycin chronic Saturday or . Per pulmonary steroid taper with continuation once taper completed of 10 mg daily indefinitely until seen by outpatient special needs bus driver
CXR
IMPRESSION:
No acute cardiopulmonary abnormality.
Findings suggestive of emphysema/COPD, similar to prior.
Seen and examined the day of discharge which was 08/27/2025. No new complaints. No acute overnight events.
NAD, cachectic, temporal wasting
Scleral Anicteric
MMM
No JVD
Decreased breath sounds however without wheezing
RRR, S1/S2
Soft, NT, ND, BS+
Warm, Dry
AAOx3
More than 30 minutes spent in discharge including
Final examination of the patient
Summarizing hospital stay
Instructions for continuing care to all relevant caregivers
Preparation of discharge records, prescriptions, and referral forms
Total time spent (in minutes): 33mins
Discharge Plan
-
Patient Disposition: Home with Home Care
Discharge Diagnosis/Procedures: End-stage COPD exacerbation
Chronic hypercapnic respiratory failure
Alcohol use disorder
Anxiety depression
Condition: Fair
Diet: As tolerated
Activity: As tolerated
Activity Restrictions/Additional Instructions:
Presented with shortness of breath wheezing and decreased breath sounds. Consistent with COPD exacerbation. Sputum culture preliminary without growth apart from normal rachelle. Requiring supplemental oxygen. Was noted to have chronic hypercapnic
respiratory failure and pulmonary recommended initiation of BiPAP for which there is plans to continue BiPAP/bilevel support at home for sleeping and during naps. Continue breathing therapies along with steroids. Spoke with pulmonary recommend
tapering from 40 mg to 10 mg over 7 to 10 days followed by 10 mg indefinitely until seen by outpatient special needs bus driver.
Referrals:
Irma Cain DO [Active, Pulmonary Medicine] - in two to four weeks
Referral Note: PFT; pls note-has difficulty with transportation
Elizabeth Deras CRNP [Family Provider, [facility]]
Prescriptions:
New
guaifenesin 600 mg Tablet Extended Release 12hr
1,200 mg PO Q12 Qty: 6 0RF
prednisone 10 mg tablet
See Taper PO DAILY Qty: 90 0RF
Taper: Prednisone DC Starting at 50 mg daily
50 mg Daily for 3 Days and 0 Hour
40 mg Daily for 3 Days and 0 Hour
30 mg Daily for 3 Days and 0 Hour
20 mg Daily for 3 Days and 0 Hour
Rx Instructions:
5tabs for 3days
4tabs for 3days
3tabs for 3days
2tabs for 3days
Once on 10mg daily, continue indefinitely
Continued
sertraline 100 mg Tablet
100 mg PO DAILY
ipratropium-albuterol 0.5 mg-3 mg(2.5 mg base)/3 mL Solution For Nebulization
3 ml inhalation R Q4HPRN PRN (Reason: SOB, COUGH, WHEEZE) Qty: 90 2RF
budesonide-formoterol [Symbicort] 160-4.5 mcg/actuation Hfa Aerosol Inhaler
2 puff inhalation R BID Qty: 10.2 2RF
naproxen sodium [Aleve] 220 mg Tablet
440 mg PO DAILYPRN PRN (Reason: mild pain)
albuterol sulfate 90 mcg/actuation HFA aerosol inhaler
2 puff inhalation R Q6HPRN PRN (Reason: shortness of breath or wheezing)
Spiriva Respimat 1.25 mcg/actuation mist
2 puff INHALATION R QPM
nicotine 14 mg/24 hr Patch 24 Hour
1 patch TRANSDERMAL DAILY
thiamine HCl (vitamin B1) 100 mg Tablet
100 mg PO DAILY
folic acid 1 mg Tablet
1 mg PO DAILY
Discharge Orders:
Discharge Patient (As Directed); Ordered 08/27/25
Ordered By: Charles Webb
Discharge Date and Time
Print Language: [place]IZ[place]
[2025-08-27 15:20] VITALS: BP 112/71
[2025-08-27] MEDS: LOVENOX 40 MG SC (18:08)
[2025-08-27] MEDS: ATARAX 25 MG PO (21:13)
[2025-08-27 22:33] VITALS: PULSE 2; PULSE 91
[2025-08-27 23:07] VITALS: BP 114/61
[2025-08-28 04:05] VITALS: PULSE 2
[2025-08-28 06:00] VITALS: BMI 15.9
[2025-08-28 07:00] VITALS: BP 124/72
[2025-08-28] MEDS: PULMICORT 0.5 MG INH ×2 (07:19→19:47)
[2025-08-28] MEDS: DUONEB 3 ML INH ×4 (07:19→19:47)
[2025-08-28 07:38] LABS: Hematocrit 35.6 % (39.0-52.0); Hemoglobin 11.9 g/dL (13.0-18.0); Mean Corp Hgb Conc. 33.4 g/dL (33.0-37.0); Mean Corpuscular Volume 91.5 fL (80.0-94.0); Platelet Count 277 10^3/uL (130-400); Red Cell Dist. Width 12.9 % (11.5-14.5)
[2025-08-28 08:48] LABS: Blood Urea Nitrogen 17 mg/dl (9-20); Calcium 8.8 mg/dl (8.4-10.2); Carbon Dioxide 36 mmol/L (22-30); Chloride 93 mmol/L (98-107); Estimated Creatinine Clearance 79 ml/min; Glucose 75 mg/dl (70-99); Potassium 4.0 mmol/L (3.5-5.1); Sodium 133 mmol/L (135-145); eGFR > 60.00
[2025-08-28] MEDS: DELTASONE 50 MG PO (08:49)
[2025-08-28] MEDS: MUCINEX 1200 MG PO ×2 (08:49→19:24)
[2025-08-28] MEDS: ZOLOFT 100 MG PO (08:49)
--- NOTE | 2025-08-28 11:38 | PTCARENOTE ---
Pt. educated regarding the importance of smoking cessation and the danger of smoking with the use of oxygen. Pt. ordered to be discharged home with home oxygen today. Dr. Webb made aware via tiger text.
[2025-08-28 13:35] VITALS: BP 99/44; O2SAT 94
[2025-08-28 15:30] VITALS: BP 94/66
--- NOTE | 2025-08-28 16:13 | W.PN.HOSP.TC ---
Today's Communication/Plan
-
Assessment / Plan
Assessment / Plan
Acute COPD exacerbation complicated by acute hypoxemic respiratory failure
Wean oxygen as tolerated
Goal SpO2 88 to 92%
-Ambulatory pulse ox hypoxia less than 88% qualifies for home O2
Transition to oral steroids starting prednisone tomorrow morning
DuoNebs
Incentive spirometer
Pulmonary following
- Plan for home BiPAP set up
Severe protein calorie much nutrition in setting of pulmonary cachexia
Ensures 3 times daily with meals
Anxiety depression
Continue home medication
PT recommends SNF
Anticipated Discharge: > 48 hours
Subjective/Interval History
-
Date of Service: August 28, 2025
Seen and examined. No new complaints. No acute overnight events.
Scared to go home because he lives by himself
Physical therapy evaluated recommending SNF
Objective Data
-
Labs:
Laboratory Results
08/28/25
06:59
WBC 8.5
Hgb 11.9 L
Hct 35.6 L
Plt Count 277
Sodium 133 L
Potassium 4.0
Chloride 93 L
Carbon Dioxide 36 H
BUN 17
Creatinine 0.7
Glucose 75
Calcium 8.8
Vital Signs:
Vital Signs
Temp Pulse Resp BP Pulse Ox
98.0 F 80 14 94/66 98
08/28/25 15:30 08/28/25 15:32 08/28/25 15:32 08/28/25 15:30 08/28/25 15:30
I&O
08/27/25 08/28/25 08/29/25
06:59 06:59 06:59
Intake Total 1440 / 1440 960 / 960
Output Total 1300 / 1300 1100 / 1100
Balance 140 / 140 -140 / -140
Physical Exam
-
General: Well Nourished, No Apparent Distress and Cachectic
HEENT: Normocephalic and Atraumatic
Respiratory: Decreased Breath Sounds; Negative Wheezes
Cardiac: Regular Rhythm and S1/S2
GI: Soft, Nontender, Nondistended and Normal Bowel Sounds
Genito-urinary: No Costovertebral Tender and Clear Urine
Musculoskeletal: No Clubbing, No Cyanosis and No Edema
Neuro: Awake and AO x 3
[2025-08-28] MEDS: LOVENOX 40 MG SC (16:52)
--- NOTE | 2025-08-28 16:56 | CM ---
CM Faxes were not working for most of the day, the operators also had difficulty with faxing. CM contacted [facility] to order O2 and bipap which were delayed due to inability to provide order for bipap and home O2.
At this time patient is now being recommended for SNF transfer, rather than discharge to home.
Plan: CM to follow up with patient tomorrow to discuss SNF admission
[2025-08-28] MEDS: ATARAX 25 MG PO (21:22)
[2025-08-28 23:08] VITALS: PULSE 2
[2025-08-28 23:51] VITALS: BP 95/63
[2025-08-29 03:33] VITALS: PULSE 2
[2025-08-29 06:00] VITALS: BMI 16.2
[2025-08-29 07:07] LABS: Hematocrit 36.4 % (39.0-52.0); Hemoglobin 12.0 g/dL (13.0-18.0); Mean Corp Hgb Conc. 33.0 g/dL (33.0-37.0); Mean Corpuscular Volume 92.2 fL (80.0-94.0); Platelet Count 276 10^3/uL (130-400); Red Cell Dist. Width 12.6 % (11.5-14.5)
[2025-08-29 07:25] VITALS: BP 120/74
[2025-08-29 07:39] LABS: Blood Urea Nitrogen 17 mg/dl (9-20); Calcium 8.8 mg/dl (8.4-10.2); Carbon Dioxide 35 mmol/L (22-30); Chloride 93 mmol/L (98-107); Estimated Creatinine Clearance 70 ml/min; Glucose 78 mg/dl (70-99); Potassium 4.2 mmol/L (3.5-5.1); Sodium 134 mmol/L (135-145); eGFR > 60.00
[2025-08-29] MEDS: ZOLOFT 100 MG PO (08:54)
[2025-08-29] MEDS: MUCINEX 1200 MG PO ×2 (08:54→19:37)
[2025-08-29] MEDS: DELTASONE 50 MG PO (08:54)
--- NOTE | 2025-08-29 12:46 | W.PN.HOSP.TC ---
Today's Communication/Plan
-
Assessment / Plan
Assessment / Plan
General: Well Nourished, No Apparent Distress and Cachectic
HEENT: Normocephalic and Atraumatic
Respiratory: Decreased Breath Sounds; Negative Wheezes
Cardiac: Regular Rhythm and S1/S2
GI: Soft, Nontender, Nondistended and Normal Bowel Sounds
Genito-urinary: No Costovertebral Tender and Clear Urine
Musculoskeletal: No Clubbing, No Cyanosis and No Edema
Neuro: Awake and AO x 3
Acute COPD exacerbation complicated by acute hypoxemic respiratory failure
Wean oxygen as tolerated
Goal SpO2 88 to 92%
-Ambulatory pulse ox hypoxia less than 88% qualifies for home O2
Transition to oral steroids starting prednisone tomorrow morning
DuoNebs
Incentive spirometer
Pulmonary following
- Plan for home BiPAP set up
Severe protein calorie much nutrition in setting of pulmonary cachexia
Ensures 3 times daily with meals
Anxiety depression
Continue home medication
PT recommends SNF
Anticipated Discharge: 24 - 48 hours
Subjective/Interval History
-
Date of Service: August 29, 2025
Seen and examined. No new complaints. No acute overnight events.
Objective Data
-
Labs:
Laboratory Results
08/29/25
06:29
WBC 7.2
Hgb 12.0 L
Hct 36.4 L
Plt Count 276
Sodium 134 L
Potassium 4.2
Chloride 93 L
Carbon Dioxide 35 H
BUN 17
Creatinine 0.8
Glucose 78
Calcium 8.8
Vital Signs:
Vital Signs
Temp Pulse Resp BP Pulse Ox
97.5 F 78 18 120/74 99
08/29/25 07:25 08/29/25 07:25 08/29/25 07:25 08/29/25 07:25 08/29/25 08:50
I&O
08/28/25 08/29/25 08/30/25
06:59 06:59 06:59
Intake Total 960 / 960 720 / 720
Output Total 1100 / 1100 1050 / 1050
Balance -140 / -140 -330 / -330
[2025-08-29 15:25] VITALS: BP 136/79
[2025-08-29] MEDS: LOVENOX 40 MG SC (17:03)
[2025-08-29 22:55] VITALS: PULSE 3
[2025-08-29 23:42] VITALS: BP 138/83
[2025-08-30 03:45] VITALS: PULSE 3
[2025-08-30 06:00] VITALS: BMI 15.7
[2025-08-30 07:30] VITALS: BP 127/78
[2025-08-30] MEDS: DELTASONE 50 MG PO (09:38)
[2025-08-30] MEDS: ZOLOFT 100 MG PO (09:38)
[2025-08-30] MEDS: MUCINEX 1200 MG PO ×2 (09:38→19:44)
[2025-08-30] MEDS: FLUSH (NSS) 1 FLUSH IV (09:39)
[2025-08-30 09:40] LABS: Hematocrit 42.8 % (39.0-52.0); Hemoglobin 14.0 g/dL (13.0-18.0); Mean Corp Hgb Conc. 32.7 g/dL (33.0-37.0); Mean Corpuscular Volume 94.1 fL (80.0-94.0); Platelet Count 330 10^3/uL (130-400); Red Cell Dist. Width 12.2 % (11.5-14.5)
[2025-08-30 10:26] LABS: Blood Urea Nitrogen 17 mg/dl (9-20); Calcium 9.2 mg/dl (8.4-10.2); Chloride 88 mmol/L (98-107); Estimated Creatinine Clearance 78 ml/min; Glucose 103 mg/dl (70-99); Potassium 4.1 mmol/L (3.5-5.1); Sodium 133 mmol/L (135-145); eGFR > 60.00
[2025-08-30 10:34] LABS: Carbon Dioxide 45 mmol/L (22-30)
[2025-08-30 11:35] VITALS: BP 140/84; PULSE 66; PULSE 89; PULSE 92; O2SAT 100
[2025-08-30] MEDS: DUONEB 3 ML INH ×2 (11:37→19:44)
--- NOTE | 2025-08-30 12:14 | CM ---
PT /OT re-evaluated pt and found him to need supervision only. Will need to change DCP back to home O2 @ 2 lPM and BiBap during the night. [facility] needs a new Home O2 eval today to provide and set up pt at home today. Dr. Bashir Webb TT. CM will tell
pt he no longer qualifies for SNF.
Pt needs to have a PCP in order to be seen by VN. Pt has no PCP
Plan: DC to home with home O2 and BiPaP
--- NOTE | 2025-08-30 13:31 | CM ---
Addendum entered by Jihan Vargas 08/30/25 16:37:
Spoke with patient bedside. Patient would prefer skilled rehab.
Will attempt auth in am for skilled rehab.
Addendum entered by Jihan Vargas 08/30/25 16:00:
Multiple calls to [facility], patients [facility] , no return call.
Received NIV form from [facility], but needs to be signed and reviewed by pulmonary prior to approval. Bipap will not be able to be delivered today.
Patient with no PCP, unable to find out what services are offered by insurance as no one is calling back.
MD updated.
Original Note:
TC to [facility], spoke with [facility].
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
Per [facility] all d/c planning is handled by [facility] or Giorgio [phone].
Home oxygen assessment faxed to [facility].
--- NOTE | 2025-08-30 14:19 | W.DCSUMMARY ---
Discharge Summary
Discharge Data
Date of Admission: 08/25/25
Date of Discharge: 08/30/25
-
Pending Results: No
Discharge Plan
-
Patient Disposition: Home with Home Care
Discharge Diagnosis/Procedures: End-stage COPD exacerbation
Chronic hypercapnic respiratory failure
Alcohol use disorder
Anxiety depression
Condition: Fair
Diet: As tolerated
Activity: As tolerated
Activity Restrictions/Additional Instructions:
65 M hx of end stage copd, alcohol use disorder, anxiety/depression
Presented with shortness of breath wheezing and decreased breath sounds. Consistent with COPD exacerbation. Sputum culture preliminary without growth apart from normal rachelle. Requiring supplemental oxygen. Was noted to have chronic hypercapnic
respiratory failure and pulmonary recommended initiation of BiPAP for which there is plans to continue BiPAP/bilevel support at home for sleeping and during naps. Continue breathing therapies along with steroids. Spoke with pulmonary recommend
tapering from 40 mg to 10 mg over 7 to 10 days followed by 10 mg indefinitely until seen by outpatient building code inspector.
I discussed with pulmonary no indication for azithromycin chronic Saturday or . Per pulmonary steroid taper with continuation once taper completed of 10 mg daily indefinitely until seen by outpatient building code inspector
I did tell him he should not use an open flame/smoke around o2 as this can cause an explosion. he verbalized understanding.
CXR
IMPRESSION:
No acute cardiopulmonary abnormality.
Findings suggestive of emphysema/COPD, similar to prior.
Seen and examined the day of discharge which was 08/30/2025. No new complaints. No acute overnight events.
NAD, cachectic, temporal wasting
Scleral Anicteric
MMM
No JVD
Decreased breath sounds however without wheezing
RRR, S1/S2
Soft, NT, ND, BS+
Warm, Dry
AAOx3
More than 30 minutes spent in discharge including
Final examination of the patient
Summarizing hospital stay
Instructions for continuing care to all relevant caregivers
Preparation of discharge records, prescriptions, and referral forms
Total time spent (in minutes): 33mins
Referrals:
Irma Cain, DO [Active, Pulmonary Medicine] - in two to four weeks
Referral Note: PFT; pls note-has difficulty with transportation
Elizabeth Deras CRNP [Family Provider, Family Practice]
Prescriptions:
New
guaifenesin 600 mg Tablet Extended Release 12hr
1,200 mg PO Q12 Qty: 6 0RF
prednisone 10 mg tablet
See Taper PO DAILY Qty: 90 0RF
Taper: Prednisone DC Starting at 50 mg daily
50 mg Daily for 3 Days and 0 Hour
40 mg Daily for 3 Days and 0 Hour
30 mg Daily for 3 Days and 0 Hour
20 mg Daily for 3 Days and 0 Hour
Rx Instructions:
5tabs for 3days
4tabs for 3days
3tabs for 3days
2tabs for 3days
Once on 10mg daily, continue indefinitely
Continued
sertraline 100 mg Tablet
100 mg PO DAILY
ipratropium-albuterol 0.5 mg-3 mg(2.5 mg base)/3 mL Solution For Nebulization
3 ml inhalation R Q4HPRN PRN (Reason: SOB, COUGH, WHEEZE) Qty: 90 2RF
budesonide-formoterol [Symbicort] 160-4.5 mcg/actuation Hfa Aerosol Inhaler
2 puff inhalation R BID Qty: 10.2 2RF
naproxen sodium [Aleve] 220 mg Tablet
440 mg PO DAILYPRN PRN (Reason: mild pain)
albuterol sulfate 90 mcg/actuation HFA aerosol inhaler
2 puff inhalation R Q6HPRN PRN (Reason: shortness of breath or wheezing)
Spiriva Respimat 1.25 mcg/actuation mist
2 puff INHALATION R QPM
nicotine 14 mg/24 hr Patch 24 Hour
1 patch TRANSDERMAL DAILY
thiamine HCl (vitamin B1) 100 mg Tablet
100 mg PO DAILY
folic acid 1 mg Tablet
1 mg PO DAILY
Discharge Date and Time
Print Language: TAMAZIGHT
[2025-08-30 15:25] VITALS: BP 131/98
--- NOTE | 2025-08-30 16:30 | VNURNOTE ---
PM-VN liaison spoke with Irma at [facility]. She confirmed that pt has an appt with their SIL[facility] CHASER for a home visit on 09/13/25. PM-VN can see after home visit/ PCP established. Will note on referral for SOC date after 09/13.
[2025-08-30] MEDS: LOVENOX 40 MG SC (17:34)
[2025-08-30] MEDS: SYMBICORT 160/4.5 MCG INHALER 2 PUFF INH (19:44)
[2025-08-30 22:29] VITALS: PULSE 3
[2025-08-30 23:41] VITALS: BP 99/68
[2025-08-31] VITALS (10 sets, daily range): BP systolic 98–143; BP diastolic 65–108; PULSE 3; O2SAT 96; BMI 15.7
[2025-08-31 07:11] LABS: Hematocrit 38.2 % (39.0-52.0); Hemoglobin 12.6 g/dL (13.0-18.0); Mean Corp Hgb Conc. 33.0 g/dL (33.0-37.0); Mean Corpuscular Volume 91.6 fL (80.0-94.0); Platelet Count 287 10^3/uL (130-400); Red Cell Dist. Width 12.1 % (11.5-14.5)
[2025-08-31] MEDS: SPIRIVA RESPIMAT 2.5 MCG 2 PUFF INH (07:13)
[2025-08-31] MEDS: SYMBICORT 160/4.5 MCG INHALER 2 PUFF INH (07:13)
[2025-08-31 07:49] LABS: Blood Urea Nitrogen 21 mg/dl (9-20); Calcium 8.8 mg/dl (8.4-10.2); Chloride 90 mmol/L (98-107); Estimated Creatinine Clearance 68 ml/min; Glucose 80 mg/dl (70-99); Potassium 4.1 mmol/L (3.5-5.1); Sodium 134 mmol/L (135-145); eGFR > 60.00
[2025-08-31 08:13] LABS: Carbon Dioxide 39 mmol/L (22-30)
[2025-08-31] MEDS: MUCINEX 1200 MG PO (09:08)
[2025-08-31] MEDS: ZOLOFT 100 MG PO (09:09)
[2025-08-31] MEDS: DELTASONE 50 MG PO (09:09)
--- NOTE | 2025-08-31 09:30 | CM ---
Addendum entered by Jihan Vargas 08/31/25 16:02:
[facility] updated.
Addendum entered by Jihan Vargas 08/31/25 15:34:
TC from [facility], approved skilled rehab
Auth # [id number]
Approved 30 days, start date 08/31/25, NRD 09/30/25
updates to fax# [phone]
Lisette from [facility] updated
Ambulance transport forms to be completed.
[facility]
report# [phone]

Addendum entered by Jihan Vargas 08/31/25 14:11:
Spoke with Swetha at [facility], still pending, unable to say when auth will be completed.
Addendum entered by Jihan Vargas 08/31/25 13:59:
Spoke with Glo at [facility], auth still pending.
Original Note:
Skilled rehab request initiated with [facility], spoke with Ling.
Ling advised to write [facility] on clinicals since we have a bed today.
Pended reference # [id number]
clinicals faxed to [phone]
Await determination
--- NOTE | 2025-08-31 10:09 | W.PN.PUL.V3 ---
Today's Communication / Plan
-
Assess discharge supplemental oxygen needs
Noninvasive ventilation in the outpatient setting-patient tolerating well-reviewed and signed paperwork with case management
Assessment
-
Patient is a 65 year old M with PMH significant for severe COPD who presents to ED complaining of SOB. Patient was hospitalized 07/17 - 07/28 secondary to similar symptoms. He was discharged to SNF and discharged back to home on 08/16. Patient
states that he has had continual dyspnea with activity throughout that time. He notes that he has been much more SOB over the past 3-4 days or so. Today he was trying to go to a follow-up doctor's appointment, but became severely SOB just walking
through his apartment building. 911 was called and patient was brought to the ED for further evaluation. Chest x-ray negative, he is admitted for AECOPD and placed on IV steroids. We are consulted for evaluation.
AECOPD
Hyponatremia
Hyperkalemia
Chronic hypercarbic respiratory failure, 7.
Severe protein calorie malnutrition/pulmonary cachexia
Productive sputum/cough
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
COPD, severe on symbicort/spiriva- Stage IV
Follows w/ [facility], severe obstruction FEV1 28% 2023
Not on home O2
Eosinophilia (absolute eosinophils: 500 on admission)
Bullous emphysema with group E COPD, class IV
Active tobacco use disorder (currently smokes 0.5 PPD and carries a 64-wfwq-nhcv history)
History of alcohol abuse
History of pneumonia
Depression
Reported h/o HTN in previous ER encounters
Plan
Hypoxemia noted on arrival, initially on 3 L--weaned to 2 L
No oxygen was needed on prior walk testing at baseline
Home O2 evaluation eventually
Patient has end-stage COPD with multiple emergency room and hospitalizations with chief complaint of shortness of breath and respiratory failure. The patient has a pCO2 of greater than 50 on 2 L oxygen and needs continuous oxygen supplementation.
Patient reports shortness of breath with minimal activity and reports significant reduction in activities of daily living. Due to the patient's COPD and hypoventilation patient is at risk of worsening chronic respiratory failure. I have considered
bilevel, bilevel ST and bilevel VAPS therapy and they have been ruled out due to the patient's worsening condition. The patient now requires a unique mode of ventilation not offered by less costly options. The patient requires a device that will
not fail in the event of power failure and also portable for mobility within the home when needed. Due to the patient's worsening condition I am prescribing noninvasive ventilation therapy to decrease the chance of continued unplanned expensive
medical encounters including physician office visits, emergency/urgent care treatments and hospital readmissions.
Prior history of lung disease is noted including severe COPD, FEV1 28%--end-stage
I reviewed his lung staging, stage IV--he notes he was unaware
He has had frequent exacerbations last admission discharge 07/28/25, prior to that 10/13/2023
He notes that he does not recall having prednisone in between flares
He is still smoking
Follow-up to our office has been difficult due to insurance and transportation
Suspect patient has AECOPD, agree with IV steroids
CXR/CT obtained indicating no acute findings
Other imaging reviewed-LDCT in past negative though he is at high risk for development of malignancy
Continue nebulizers while inpatient
Transition to home inhalers when able
proBNP on admission negative
Prior ECHO results are reviewed indicating stable function
Does not appear to be in concurrent heart failure
Smoking history noted-ongoing use
Smoking cessation recommended
Weight loss noted, BMI 16
He has evidence of severe protein malnutrition with pulmonary cachexia
Optimize nutrition
He may have chronic CO2 retention, obtain baseline ABG--7.38/51
Evidence of chronic CO2 retention, will trial BiPAP nightly
Arrange for home set up
Will need outpatient pulmonary evaluation in our office for PFTs and 6MWT
Reviewed with patient
Diagnostic Data
Chest X-Ray: 08/24/25-No acute cardiopulmonary abnormality.
07/24/25- Hyperinflated lungs. No acute pulmonary process.
CT Scan: LDCT 10/02/24-No pulmonary nodules identified.
Echo: 07/26/25--1. Technically limited study.
2. Ejection fraction is 70-75% by visual assessment.
3. Normal left ventricular size, wall thickness and systolic function. No regional wall motion abnormalities are seen.
Subjective Data
-
Date of Service:
Date of Service: August 31, 2025
Chief Complaint: Pulmonary Follow Up and Dyspnea Follow Up
Subjective:
Patient feels much improved, no shortness of breath at rest, denies any chest pain, productive cough
Review of Systems
General: Other (Per HPI)
Objective Data
Data Reviewed
Vital Signs / I&O:
Vital Signs
Temp Pulse Resp BP Pulse Ox
97.5 F 69 18 108/68 98
08/31/25 07:29 08/31/25 07:29 08/31/25 09:10 08/31/25 07:29 08/31/25 07:29
Intake and Output
08/30/25 08/31/25 09/01/25
06:59 06:59 06:59
Intake Total 2100 / 2100 1200 / 1200
Output Total 3500 / 3500 1150 / 1150
Balance -1400 / -1400 50 / 50
SaO2: 98
Nasal Cannula flow liters per minute: 1
Physical Exam
General: Respiratory Distress (n), Comfortable, Good Appetite and Other (Thin appearing, cachectic)
HEENT: Normocephalic, Anicteric and Moist Mucous Membranes
Cardiovascular: Regular Rhythm
Respiratory: Clear (Diminished breath sounds and prolonged expiratory time), Wheeze, Crackles (n), Rhonchi (n), Non-Labored Respirations, Accessory Resp Muscle Use (Mild with conversation), Stridor (n) and Other (Barrel chested, poor air movement)
GI: Soft, Non Distended and Non Tender
Neurology: Awake, Alert, Oriented and No Motor Deficits
Skin: Warm, Dry and Cyanosis (n)
Labs/Micro/Reports
Lab Data
08/31/25 06:51
08/31/25 06:51
Microbiology
08/26/25 16:16 Sputum Respiratory Culture - Final
Usual Respiratory Esther
08/26/25 16:16 Sputum Gram Stain - Final
--- NOTE | 2025-08-31 10:17 | W.DCSUMMARY ---
Addendum entered and electronically signed by Charles Webb MD 08/31/25 15:48:
DC to [facility]. Was accepted and auth obtained
Original Note:
Discharge Summary
Discharge Data
Date of Admission: 08/25/25
Date of Discharge: 08/31/25
-
Pending Results: No
Hospital Course
65 M hx of end stage copd, alcohol use disorder, anxiety/depression
Presented with shortness of breath wheezing and decreased breath sounds. Consistent with COPD exacerbation. Sputum culture preliminary without growth apart from normal rachelle. Requiring supplemental oxygen. Was noted to have chronic hypercapnic
respiratory failure and pulmonary recommended initiation of BiPAP for which there is plans to continue BiPAP/bilevel support at home for sleeping and during naps. Continue breathing therapies along with steroids. Spoke with pulmonary recommend
tapering from 40 mg to 10 mg over 7 to 10 days followed by 10 mg indefinitely until seen by outpatient plastering contractor.
I discussed with pulmonary no indication for azithromycin chronic Saturday or . Per pulmonary steroid taper with continuation once taper completed of 10 mg daily indefinitely until seen by outpatient plastering contractor
I did tell him he should not use an open flame/smoke around o2 as this can cause an explosion. he verbalized understanding.
CXR
IMPRESSION:
No acute cardiopulmonary abnormality.
Findings suggestive of emphysema/COPD, similar to prior.
Seen and examined the day of discharge which was 08/31/2025. No new complaints. No acute overnight events.
NAD, cachectic, temporal wasting
Scleral Anicteric
MMM
No JVD
Decreased breath sounds however without wheezing
RRR, S1/S2
Soft, NT, ND, BS+
Warm, Dry
AAOx3
More than 30 minutes spent in discharge including
Final examination of the patient
Summarizing hospital stay
Instructions for continuing care to all relevant caregivers
Preparation of discharge records, prescriptions, and referral forms
Total time spent (in minutes): 33mins
Discharge Plan
-
Patient Disposition: Home with Home Care
Discharge Diagnosis/Procedures: End-stage COPD exacerbation
Chronic hypercapnic respiratory failure
Alcohol use disorder
Anxiety depression
Condition: Fair
Diet: As tolerated
Activity: As tolerated
Activity Restrictions/Additional Instructions:
65 M hx of end stage copd, alcohol use disorder, anxiety/depression
Presented with shortness of breath wheezing and decreased breath sounds. Consistent with COPD exacerbation. Sputum culture preliminary without growth apart from normal rachelle. Requiring supplemental oxygen. Was noted to have chronic hypercapnic
respiratory failure and pulmonary recommended initiation of BiPAP for which there is plans to continue BiPAP/bilevel support at home for sleeping and during naps. Continue breathing therapies along with steroids. Spoke with pulmonary recommend
tapering from 40 mg to 10 mg over 7 to 10 days followed by 10 mg indefinitely until seen by outpatient plastering contractor.
I discussed with pulmonary no indication for azithromycin chronic Saturday or p. Per pulmonary steroid taper with continuation once taper completed of 10 mg daily indefinitely until seen by outpatient plastering contractor
I did tell him he should not use an open flame/smoke around o2 as this can cause an explosion. he verbalized understanding.
CXR
IMPRESSION:
No acute cardiopulmonary abnormality.
Findings suggestive of emphysema/COPD, similar to prior.
Seen and examined the day of discharge which was 08/30/2025. No new complaints. No acute overnight events.
NAD, cachectic, temporal wasting
Scleral Anicteric
MMM
No JVD
Decreased breath sounds however without wheezing
RRR, S1/S2
Soft, NT, ND, BS+
Warm, Dry
AAOx3
More than 30 minutes spent in discharge including
Final examination of the patient
Summarizing hospital stay
Instructions for continuing care to all relevant caregivers
Preparation of discharge records, prescriptions, and referral forms
Total time spent (in minutes): 33mins
Referrals:
Irma Cain, DO [Active, Pulmonary Medicine] - in two to four weeks
Referral Note: PFT; pls note-has difficulty with transportation
Elizabeth Deras CRNP [Family Provider, Family Practice]
Prescriptions:
New
guaifenesin 600 mg Tablet Extended Release 12hr
1,200 mg PO Q12 Qty: 6 0RF
prednisone 10 mg tablet
See Taper PO DIRECTED Qty: 90 0RF
Taper: Prednisone DC Starting at 50 mg daily
50 mg Daily for 3 Days and 0 Hour
40 mg Daily for 3 Days and 0 Hour
30 mg Daily for 3 Days and 0 Hour
20 mg Daily for 3 Days and 0 Hour
10 mg Daily for 365 Days and 0 Hour
Rx Instructions:
5tabs for 3days
4tabs for 3days
3tabs for 3days
2tabs for 3days
Once on 10mg qd, continue indefinitely
Continued
sertraline 100 mg Tablet
100 mg PO DAILY
ipratropium-albuterol 0.5 mg-3 mg(2.5 mg base)/3 mL Solution For Nebulization
3 ml inhalation R Q4HPRN PRN (Reason: SOB, COUGH, WHEEZE) Qty: 90 2RF
budesonide-formoterol [Symbicort] 160-4.5 mcg/actuation Hfa Aerosol Inhaler
2 puff inhalation R BID Qty: 10.2 2RF
naproxen sodium [Aleve] 220 mg Tablet
440 mg PO DAILYPRN PRN (Reason: mild pain)
albuterol sulfate 90 mcg/actuation HFA aerosol inhaler
2 puff inhalation R Q6HPRN PRN (Reason: shortness of breath or wheezing)
Spiriva Respimat 1.25 mcg/actuation mist
2 puff INHALATION R QPM
nicotine 14 mg/24 hr Patch 24 Hour
1 patch TRANSDERMAL DAILY
thiamine HCl (vitamin B1) 100 mg Tablet
100 mg PO DAILY
folic acid 1 mg Tablet
1 mg PO DAILY
Discharge Orders:
Discharge Patient (As Directed); Ordered 08/30/25
Ordered By: Charles Webb
Discharge Date and Time
Print Language: TUVALUAN
[2025-08-31] MEDS: LOVENOX SC (17:03)
--- NOTE | 2025-08-31 17:19 | CM ---
Pt made aware that he was accepted at [facility] today. He is agreeable. Auth obtained. Ambulance transfer arranged for 7PM.
Plan: DC to [facility]
--- NOTE | 2025-08-31 19:30 | PTCARENOTE ---
Pt discharged via ambulance with belongings. RN removed IV. VSS. Education packet given to transport.
== END 2025-08-31 19:34 | DRG 190 ==
LOC: 4 EAST ACU 01:44
PROVIDERS: Emergency Medicine; Physician Assistant; ADMITTING PHYSICIAN Hospitalist; ATTENDING PHYSICIAN Hospitalist; EMERGENCY PHYSICIAN Emergency Medicine; FAMILY PHYSICIAN Nurse Practitioner; OTHER PHYSICIAN Internal Medicine
PROC: 5A09357 Assistance with Respiratory Ventilation, Less than 24 Consecutive Hours, Continuous Positive Airway Pressure (ICD-10-PCS; 2025-08-26)
DX: J44.1 Chronic obstructive pulmonary disease with (acute) exacerbation (principal); E43 Unspecified severe protein-calorie malnutrition; J96.01 Acute respiratory failure with hypoxia; Z68.1 Body mass index [BMI] 19.9 or less, adult; R64 Cachexia; E87.1 Hypo-osmolality and hyponatremia; J96.12 Chronic respiratory failure with hypercapnia; J43.9 Emphysema, unspecified; K21.9 Gastro-esophageal reflux disease without esophagitis; F10.10 Alcohol abuse, uncomplicated; F32.A Depression, unspecified; F41.9 Anxiety disorder, unspecified; E87.5 Hyperkalemia; I10 Essential (primary) hypertension; D72.10 Eosinophilia, unspecified; F17.210 Nicotine dependence, cigarettes, uncomplicated; Z60.2 Problems related to living alone; Z82.49 Family history of ischemic heart disease and other diseases of the circulatory system; Z11.52 Encounter for screening for COVID-19; Z87.01 Personal history of pneumonia (recurrent); Z59.82 Transportation insecurity; Z79.899 Other long term (current) drug therapy; Z79.51 Long term (current) use of inhaled steroids; Z75.1 Person awaiting admission to adequate facility elsewhere
CPT/HCPCS: 36600; 71045; 80048; 80053; 82805; 83880; 84484; 85025; 85027; 85610; 86803; 87070; 87205; 87502; 87811; 93005; 94640; 94644; 94660; 94761; 96365; 96375; 97116; 97162; 97166; 97535; 99285; 99406